=== PATIENT | male | born 1955 | race Caucasian/White ===

== ENCOUNTER → 2018-10-30 | Outpatient (CLI) | payer BC ==
[2016-05-27 10:48] VITALS: BP 134/75
[~2018-10-30] MED LIST: AMLO5TAB10 PO; ASPI-482 PO; ASPI81TA50 PO; ATOR40TA59 PO; BENA40TA3 PO; CELE200C PO; CHLO25TA10 PO; CLOP75TA PO; DICL75TA PO; DOCU-109 PO; ESOM2.5S PO; FENO145T30 PO; FERR-36 PO; FLUV100C2 PO; FLUV100T2 PO; FOLI1TAB16 PO; GABA300C18 PO; GADOBUTROL 10 MMOL/10 ML VIAL IV ONE; HYDR-2765 PO; LOSA-73 PO; MAGN400C PO; METH-38 PO; METO25TA4 PO; MULT-246 PO; OMEG1CAP27 PO; OMEG1CAP30 PO; OMEP20TA8 PO; OXYC1TAB15 PO; OXYC1TAB19 PO; PREG150C PO; SIMV5TAB PO; UBID100C26 PO; WARF-78 PO; [UNRECOGNIZED DRUG - CODE] MC; [UNRECOGNIZED DRUG - CODE] PO
--- NOTE | 2018-10-30 16:42 | KCIC ---
MRI of the lumbar spine without and with contrast 10/30/2018 CLINICAL HISTORY: Low back pain with right leg pain and weakness. Left leg numbness. History of previous lumbar spine surgeries. TECHNIQUE: Unenhanced T1-weighted and T2-weighted sagittal and axial and inversion recovery sagittal images of the lumbar spine were obtained. After the intravenous administration of 10 cc of Gadavist, enhanced T1-weighted sagittal and axial images of the lumbar spine were obtained. FINDINGS: Comparison is made to a CT scan of the lumbar spine dated 02/16/2018. Minimal S-shaped curvature of the thoracolumbar spine is seen. The patient is post posterolateral fusion using pedicle screws and stabilizing rods extending from L1 to S1. Bone graft material is seen within the L3-4 and L4-5 disc spaces. The patient is post laminectomy at L4-5 and L5-S1. Degenerative signal changes and loss of height are seen involving the L1-2, L2-3 and L5-S1 discs. Degenerative signal changes are seen within the marrow surrounding these discs. The conus medullaris is normal in morphology, position, and signal characteristics. At the L1-2 disc space the patient is post right hemilaminectomy. There is a mild to moderate generalized disc bulge. This is eccentric to the right. Degenerative changes are seen involving the facet joints bilaterally. These findings do not result in significant central spinal canal stenosis. No neural foraminal stenosis is seen. At the L2-3 disc space the patient appears to be post bilateral hemilaminotomy. There is a mild generalized disc bulge. Degenerative changes are seen involving the facet joints bilaterally. These findings do not result in significant central spinal canal or neural foraminal stenosis. At the L3-4 level degenerative changes are seen involving the facet joints bilaterally. These findings do not result in definite areas of significant central spinal canal or neural foraminal stenosis. At the L4-5 level degenerative changes are seen involving the facet joints bilaterally. These findings do not result in significant central spinal canal or neural foraminal stenosis. At the L5-S1 disc space there is a moderate generalized disc bulge. Degenerative changes are seen involving the facet joints bilaterally. These findings do not result in significant central spinal canal stenosis. Moderate bilateral neural foraminal stenosis is seen. IMPRESSION: 1. Postsurgical changes are seen throughout the lumbar spine as discussed above. 2. The changes of degenerative disc disease are seen throughout the lumbar spine. These findings do not result in significant central spinal canal stenosis at any level. Moderate bilateral neural foraminal stenosis is seen at L5-S1. Electronically signed by: John Guerra MD (10/30/2018 4:40 PM) [email or web address]
== END | disposition home or self-care (01) ==
LOC: KCIC MRI 15:05
PROVIDERS: ATTEND Family Medicine
DX: M51.17 Intervertebral disc disorders with radiculopathy, lumbosacral region (principal); M48.07 Spinal stenosis, lumbosacral region; M47.27 Other spondylosis with radiculopathy, lumbosacral region; Z98.890 Other specified postprocedural states
CPT/HCPCS: 72158; 82565; A9585

== ENCOUNTER → 2018-11-09 | Outpatient (CLI) | payer BC ==
[2016-05-27 10:48] VITALS: BP 134/75
[~2018-11-09] MED LIST changes: -GADOBUTROL 10 MMOL/10 ML VIAL IV ONE
--- NOTE | 2018-11-09 21:45 | PAIN ---
DATE OF SERVICE: 11/09/2018 INITIAL CONSULTATION FOR PAIN CLINIC CHIEF COMPLAINT: Low back and bilateral lower extremity pain, right greater than left. HISTORY OF PRESENT ILLNESS: This is a 63-year-old male who presents with history of pain in the low back and bilateral lower extremities for many years, worse since September of this year. The patient reports he stopped his physical therapy at that time and then the pain got worse. The patient reports it is now constant across the low back into the posterior gluteus on the right, posterior gluteus on the left, posterior thigh on the right, posterior calf, lateral calf and into the ankle on the right side, also some in the left side in the same distribution, but less intense. The patient reports it is constant, throbbing, tingling, radiating and aching down in the low back itself. The patient reports it is worse with walking, standing and changing positions, better with sitting or lying down. It awakens him from sleep many times at night though. The patient reports it affects his bowel or bladder control, but does not cause any incontinence. The patient reports it does affect his ability to walk. He is using a cane mostly in his left hand. The patient has had physical therapy and chiropractic treatment he was doing with exercise prior to 09/2018. The pain became more intense with the exercise and he was encouraged by his neurosurgeon to hold this until he can get some treatment for it. The patient has continued to do physical therapy and stretching exercises at home on his own. He is taking oxycodone, hydrocodone as well as the gabapentin. He feels the gabapentin does not help with the oxycodone and hydrocodone does help traditionally. The patient also uses ice packs, which are helpful to decrease the pain as well. The patient reports no loss of motor function with significant instability, especially with the right leg as he has had bilateral knee replacements and again uses a cane to walk at all times. The patient rates his disability rating from 0-10, 10 being the worst, is a 9 with family and home responsibilities, recreation, social activity and occupation, 10 with sexual behavior, 1 with self-care and 1 with life support activities. The patient did have an MRI scan of the lumbar spine dated 10/30/2018 showing post-surgical changes with degenerative disk disease throughout the lumbar spine, not resulting in any significant central spinal canal stenosis at any level and moderate bilateral neural foraminal stenosis seen at L5-S1 bilaterally. PAST MEDICAL HISTORY: Significant for hypertension, irritable bowel syndrome, valvular heart disease, arthritis, osteoporosis, anticoagulation. PREVIOUS SURGERIES: Include right bicep tendon reattachment, left foot broken ankle, carpal tunnel release bilaterally, cholecystectomy, right shoulder rotator cuff repair, lumbar laminectomy and lumbar fusion in 2007, left shoulder rotator repair, hammertoe fusion, second rotator repair in 2012 of the left, left knee replacement, right knee replacement, lumbar microdiskectomy, laminectomy and fusion in 2015, carotid endarterectomy, amputation of infected hammertoe and tendon release of the hammertoe in 2018. CURRENT MEDICATIONS: Include multivitamins, hydrocodone, metoprolol, Plavix, omega 3 oils, losartan, folic acid, magnesium, daily baby aspirin, amlodipine, gabapentin, diclofenac, fluvoxamine, atorvastatin and chlorthalidone. ALLERGIES: The patient has no known drug allergies. FAMILY HISTORY: Significant for heart disease, lupus and hypercholesterolemia. SOCIAL HISTORY: The patient drinks about 6 alcoholic drinks a day. Does not smoke. Does not use any illegal, illicit or recreational drugs. He is and lives with his spouse, has no children living at home. Reports he is currently retired, lives locally in [place], [place]. REVIEW OF SYSTEMS: The patient's review of systems is positive for those items mentioned in history of present illness. All systems reviewed are otherwise negative. It is complete, full and well documented on the patient's chart. PHYSICAL EXAMINATION: VITAL SIGNS: The patient's blood pressure is 151/74, pulse is 70, respirations 18, temperature 97.9 degrees Fahrenheit, height is 5 feet 10 inches, weight is 231 pounds. GENERAL: The patient is awake, alert, oriented, appropriate, very pleasant demeanor. HEENT: Head shows normocephalic, atraumatic. Extraocular movements are intact and symmetrical. Oral cavity: Mucous membranes are moist and pink. Dentition is intact. NECK: Shows anterior throat supple without palpable lymphadenopathy noted. Swallow reflex is symmetrical. CHEST: Shows normal on inspection. Breath sounds are clear to auscultation bilaterally. HEART: Shows S1, S2 clear. No murmurs auscultated. ABDOMEN: Soft, nontender, nondistended. No palpable organomegaly is noted. No rebound or guarding demonstrated. BACK: Shows spine grossly in the midline. Normal appearing thoracic kyphosis and some flattening of lumbar lordotic curvature with well-healed surgical scar noted. Lumbar paraspinous muscle shows symmetrical on inspection. On palpation, has some moderate tenderness diffusely bilaterally, but only diffusely without specific radiation, but throughout the upper, middle and lower distribution of the paraspinous muscles bilaterally. No specific tenderness over the midline and spinous processes or the sacrum or sacroiliac regions. The patient has good rotational motion of lumbar spine with some limited extension, but secondary to previous surgeries, not to pain. Forward flexion is limited to less than 45 degrees without pain as well. EXTREMITIES: The patient's lower extremities show deep tendon reflexes 1+ in the patellar and tendo-calcaneus tendons. Knees show well-healed significant surgical scars over both the anterior knees. Tendo calcaneus tendons are 1+ bilaterally as well. Motor exam is approximately 4 on a scale of 5, but equal and symmetrical. Peripheral pulses are 1+ posterior tibia. No peripheral edema is noted. Straight leg raise noted to be negative for reproduction of radicular symptoms bilaterally. Gaenslen's and Meng's maneuvers are grossly negative bilaterally as well. The patient is able to stand and has difficulty getting out of a seated to a standing position, uses the arms of the chair to support himself. He is using a cane in his left hand, has a significant limping gait favoring the right lower extremity with ambulation. SKIN: Shows warm and dry. Good turgor. No edema. No sores, rashes or bruising throughout. IMPRESSION: 1. This is a 63-year-old male with a long history of low back pain, multiple surgeries with fusion and instrumentation, now with persistent radiculopathy, right greater than left in the L5-S1 dermatomal distribution. 2. MRI scan of lumbar spine as noted. 3. Recent neurosurgical evaluation. 4. Arthritis. 5. Hypertension. 6. Anticoagulation. 7. Valvular heart disease. PLAN: Options were discussed with the patient including conservative medical management, physical therapies and interventional techniques. He would like to pursue interventional techniques, as he has been doing physical therapy and medication management. We have discussed the bilateral L5-S1 transforaminal injections as recommended by his neurosurgeon. The patient would like to proceed with this. We will first check with his primary care physician who he reports prescribes his Plavix for him and see if this is deemed safe and appropriate to hold the Plavix for 7 days prior to procedure. If this is clear, we will have him hold this and then return for injection at that time. LIONEL TORREZ MD DR: VICENTE/kayode JOB#: [id number] / [id number] SHARAD Sorto MD
== END | disposition home or self-care (01) ==
LOC: PNCL 13:23
PROVIDERS: ATTEND Anesthesiology
DX: M54.17 Radiculopathy, lumbosacral region (principal); M79.605 Pain in left leg; M79.604 Pain in right leg; K58.9 Irritable bowel syndrome, unspecified; M19.90 Unspecified osteoarthritis, unspecified site; M81.0 Age-related osteoporosis without current pathological fracture; I11.9 Hypertensive heart disease without heart failure; D68.8 Other specified coagulation defects; Z98.1 Arthrodesis status; Z79.899 Other long term (current) drug therapy; Z79.82 Long term (current) use of aspirin; Z90.49 Acquired absence of other specified parts of digestive tract; Z98.890 Other specified postprocedural states
CPT/HCPCS: G0463

== ENCOUNTER → 2018-11-24 | Outpatient (CLI) | payer BC ==
[2016-05-27 10:48] VITALS: BP 134/75
[~2018-11-24] MED LIST changes: +BUPIVACAINE MPF 0.25% 10 ML VIAL. ONE; +IOHEXOL 180 MG/ML 10 ML VIAL. ONE; +methylPREDNISolone ACETATE 40 MG/ML VIAL. ONE; +methylPREDNISolone ACETATE 80 MG/ML VIAL. ONE
--- NOTE | 2018-11-25 00:33 | PAIN ---
DATE OF SERVICE: 11/24/2018 PROGRESS NOTE FOR PAIN CLINIC DIAGNOSES: Lumbar radiculopathy with lumbar degenerative disk disease and lumbar post-laminectomy syndrome. HISTORY OF PRESENT ILLNESS: The patient is a 63-year-old male who returns for followup status post initial evaluation and holding his Plavix after clearance from his primary care physician. He has also been on Lovenox and has held that for the last 24 hours. The patient reports still significant pain in the low back, bilateral lower extremities mostly in the posterior gluteus, posterior thighs, posterior calves as previously. Reports aching, sharp, dull, shooting, tingling, radiating, becoming more constant. The patient reports it is 7 on a scale 10 on average on the last week, 8 on its worse and is 3 on a scale of 10 at the minimal in the last week and is a 7 today. The patient reports no new motor or sensory deficits. No new bowel or bladder control or other complaints. PHYSICAL EXAMINATION: VITAL SIGNS: The patient's blood pressure is 146/92, pulse 69, respirations 18 and temperature 98.1 degrees Fahrenheit. Height is 5 feet 9 inches and weight is 231 pounds. GENERAL: The patient is awake, alert, oriented, appropriate and very pleasant demeanor. HEENT: Head shows normocephalic and atraumatic. Extraocular movements are intact and symmetrical. Oral cavity, mucous membranes are moist and pink. Dentition is intact. NECK: Shows anterior throat supple without palpable lymphadenopathy noted. Swallow reflexes symmetrical. CHEST: Shows normal on inspection. Breath sounds are clear to auscultation bilaterally. HEART: Shows S1 and S2 clear. No murmurs auscultated. ABDOMEN: Obese, soft, nontender and nondistended. No palpable organomegaly is noted. No rebound or guarding demonstrated. BACK: Shows spine grossly in was the midline flattening of the lumbar lordotic curvature is again appreciated with multiple surgical scars. Lumbar paraspinals muscle shows symmetrical on inspection with palpation shows some moderate tenderness throughout the upper, middle and lower distribution of the paraspinous muscles diffusely without radiation. The patient shows good rotational motion both laterally as well as extension and flexion with limited rotation but without pain on rotation, extension or flexion. EXTREMITIES: The patient's lower extremities show deep tendon reflexes at 1+ in the patella and tendo-calcaneus tendons. Motor exam is approximately 4 on a scale 5 but equal and symmetrical with dorsiflexion, extension, quadriceps and hamstring flexion bilaterally. Peripheral pulses are 1+ posterior tibia. No peripheral edema is noted bilaterally. Options were discussed with the patient. The patient's old chart was reviewed as well as his current medication regimen updated. Current review of systems updated today as well. We will proceed with a bilateral L5-S1 transforaminal injections using C-arm fluoroscopic guidance. Risks were discussed including but not limited to bleeding, infection, possibility of epidural hematoma, subsequently neurological compromise, dural puncture headaches, spinal cord and/or nerve damage, side effects of steroid medication and potential injection of the vertebral artery at each level and pertinent ischemic damage as well as poor results regarding pain control and exposure to fluoroscopy. The patient understands and wished to proceed. The patient will return to the clinic in approximately 2 weeks for followup, was counseled as to return appointment, activity level and side effects to be aware of. The patient will restart his Plavix tomorrow as directed through his PCP. DIAGNOSES: Lumbar radiculopathy with lumbar degenerative disk disease, post-lumbar laminectomy syndrome. PROCEDURE: Bilateral L5-S1 transforaminal injections using C-arm fluoroscopic guidance under sterile prep and drape using local anesthetic. MEDICATION INJECTED: A total of 120 mg Depo-Medrol, 60 mg per side, total of 3 mL of contrast, 1.5 mL per side with negative uptake on digital subtraction bilaterally, good spread medially into the epidural space and laterally along the nerve roots on each side. CONDITION AT DISCHARGE: Stable. The patient tolerated the procedure well and had no complications. LIONEL TORREZ MD DR: VICENTE/kayode JOB#: [id number] / [id number]
== END | disposition home or self-care (01) ==
LOC: PNCL 09:46
PROVIDERS: ATTEND Anesthesiology
DX: M51.16 Intervertebral disc disorders with radiculopathy, lumbar region (principal); M96.1 Postlaminectomy syndrome, not elsewhere classified
CPT/HCPCS: 64483; J1030; J1040; J3490; Q9965

== ENCOUNTER → 2019-02-05 | Outpatient (CLI) | payer BC ==
[2016-05-27 10:48] VITALS: BP 134/75
[~2019-02-05] MED LIST changes: +ACET500T68 PO; +CLOP75TA57 PO; +FOLI0.8T3 PO; +LACT1CAP19 PO; +LOSA100T2 PO; +MAGN400T3 PO; +MUPI22OI2 TP; +OMEG1CAP38 PO; +OXYC30TA21 PO; +PANT40TA77 PO; +PIPE3.3734 IV; +SIMV40TA PO; +VANC1.5P12 IV
--- NOTE | 2019-02-05 11:31 | PAIN ---
DATE OF SERVICE: 02/05/2019 PROGRESS NOTE FOR PAIN CLINIC DIAGNOSES: Lumbar radiculopathy with lumbar degenerative disk disease and post-lumbar laminectomy syndrome. HISTORY OF PRESENT ILLNESS: The patient is a 63-year-old male who returns for followup status post bilateral transforaminal injections, last seen on 11/24/2018. The patient did very well to about 75% improvement for the first month. The pains are returning now over the past week or two in the low back, bilateral lower extremities, worse on the right, radiating to posterior gluteus, posterior thighs bilaterally in the posterior calf on the right side, worse with walking, standing, change in positions. The patient reports it is aching, sharp, dull, tight, shooting, tingling in the legs as well as some constant pain in the back with being on his feet. The patient reports it is better with lying down, wakes him from sleep about every 3-4 hours. Initially, there was decreased distance walking and doing work activities, household activities and sleeping much better. The patient reports no new motor or sensory deficits, rates his pain 8 on a scale of 10 at its worst in the past week, 7 on average, 2 at its least and is a 2 today. The patient reports no new motor or sensory deficits, no new bowel or bladder incontinence or other complaints. PHYSICAL EXAMINATION: VITAL SIGNS: The patient's blood pressure is 130/83, pulse 70, respirations 16, temperature 98.2 degrees Fahrenheit, height is 5 feet 10 inches, weight is 224 pounds. GENERAL: The patient is awake, alert, oriented, appropriate, very pleasant demeanor. HEENT: Shows normocephalic, atraumatic. Extraocular movements intact and symmetrical. Oral cavity, mucous membranes are moist and pink. Dentition is intact. NECK: Shows anterior throat supple without palpable lymphadenopathy noted. Swallow reflex symmetrical. CHEST: Shows normal with inspection. Breath sounds clear to auscultation bilaterally. HEART: Shows S1, S2 clear. No murmurs auscultated. ABDOMEN: Soft, nontender, nondistended. No palpable organomegaly is noted. No rebound or guarding demonstrated. BACK: Shows spine grossly in the midline. Normal-appearing thoracic kyphosis and flattening of lumbar lordotic curvature with well-healed extensive surgical scarring throughout the lumbar distribution. Lumbar paraspinous muscle shows symmetrical on inspection and palpation shows some moderate tenderness diffusely bilaterally, but only diffusely without radiation. The patient has good rotational motion of lumbar spine, both laterally as well as extension and flexion without increase in pain. EXTREMITIES: Lower extremities show deep tendon reflexes 1+ in the patellar and tendo calcaneus tendons. Motor exam is approximately 4 on a scale of 5, but equal and symmetrical bilaterally without radiation of pain with movement. Peripheral pulses are 1+ posterior tibia. No peripheral edema is noted. Options were discussed with the patient. The patient's old chart was reviewed as his current medication regimen updated. Current review of systems updated today as well. We will proceed with a second in series of bilateral transforaminal L5-S1 level injections. Risks were again discussed including, but not limited to bleeding, infection, possibility of epidural hematoma, subsequent neurologic compromise, dural puncture, headaches, spinal cord and/or nerve damage, potential injection of the vertebral artery at that level and permanent ischemic damage as well as exposure to fluoroscopy and poor results regarding pain control. The patient understands and wished to proceed. The patient will return to clinic in approximately 2 weeks for followup, was counseled on return appointment, activity level and side effects to be aware of. The patient will restart his Plavix again tomorrow, has been off this for 7 days prior to injection and off his Lovenox for 24 hours as well. Again, restart the Plavix tomorrow. The patient was counseled as to return appointment, activity level as well as side effects to be aware of. DIAGNOSES: Lumbar radiculopathy with lumbar degenerative disk disease, post-lumbar laminectomy syndrome. PROCEDURE: Bilateral L5-S1 transforaminal injections using C-arm fluoroscopic guidance under sterile prep and drape using local anesthetic. MEDICATION INJECTED: A total of 4 mL of 0.25% bupivacaine 2 mL per side, total of 120 mg Depo-Medrol, 60 mg per side and total of 3 mL of contrast 1.5 mL each side with negative aspiration and no uptake on digital subtraction bilaterally with good spread in the epidural space as well as laterally along the nerve roots both right and left of the L5-S1 level. CONDITION AT DISCHARGE: Stable. The patient tolerated procedure well, had no complications. LIONEL TORREZ MD DR: VICENTE/kayode JOB#: [id number] / [id number]
== END ==
LOC: PNCL 08:57
PROVIDERS: ATTEND Anesthesiology
DX: M51.16 Intervertebral disc disorders with radiculopathy, lumbar region (principal); M96.1 Postlaminectomy syndrome, not elsewhere classified
CPT/HCPCS: 64483; J1030; J1040; J3490; Q9965

== ENCOUNTER 2019-02-09 12:05 | Inpatient (IN) | payer BC ==
[~2019-02-09] VITALS: Ht 177.8 cm; Wt 99.8 kg
[~2019-02-09 12:05] MED LIST changes: -ACET500T68 PO; -BUPIVACAINE MPF 0.25% 10 ML VIAL. ONE; -CLOP75TA57 PO; -FOLI0.8T3 PO; -IOHEXOL 180 MG/ML 10 ML VIAL. ONE; -LACT1CAP19 PO; -LOSA100T2 PO; -MAGN400T3 PO; -MUPI22OI2 TP; -OMEG1CAP38 PO; -OXYC30TA21 PO; -PANT40TA77 PO; -PIPE3.3734 IV; -SIMV40TA PO; -VANC1.5P12 IV; -methylPREDNISolone ACETATE 40 MG/ML VIAL. ONE; -methylPREDNISolone ACETATE 80 MG/ML VIAL. ONE
[2019-02-09 15:00] VITALS: BP 137/68
[2019-02-09] MEDS ORDERED: POTASSIUM CHLORIDE 20 MEQ TABLET.ER. PO ONE (16:30)
[2019-02-09] MEDS ORDERED: METO25TA4 PO (17:27)
[2019-02-09] MEDS ORDERED: LACT1CAP19 PO (17:27)
[2019-02-09] MEDS ORDERED: OXYC30TA21 PO (17:27)
[2019-02-09] MEDS ORDERED: OMEG1CAP38 PO (17:27)
[2019-02-09] MEDS ORDERED: MUPI22OI2 TP (17:27)
[2019-02-09] MEDS ORDERED: PIPE3.3734 IV (17:27)
[2019-02-09] MEDS ORDERED: FLUV100T2 PO (17:27)
[2019-02-09] MEDS ORDERED: MAGN400T3 PO (17:27)
[2019-02-09] MEDS ORDERED: FOLI0.8T3 PO (17:27)
[2019-02-09] MEDS ORDERED: PANT40TA77 PO (17:27)
[2019-02-09] MEDS ORDERED: ACET500T68 PO (17:27)
[2019-02-09] MEDS ORDERED: SIMV40TA PO (17:27)
[2019-02-09] MEDS ORDERED: GABA300C18 PO (17:27)
[2019-02-09] MEDS ORDERED: VANC1.5P12 IV (17:27)
[2019-02-09] MEDS ORDERED: CLOP75TA57 PO (17:27)
[2019-02-09] MEDS ORDERED: LOSA100T2 PO (17:27)
[2019-02-09] MEDS ORDERED: ACETAMINOPHEN 500 MG TABLET PO PRN (18:15)
[2019-02-09] MEDS: oxyCODONE IR 5 MG TABLET PO PRN (18:19)
[2019-02-09 19:00] VITALS: BP 142/76
[2019-02-09] MEDS: PIPERACILLIN/TAZOBACTAM 3.375 GM in IV NORMAL SALINE 50ML 50 ML IV SCH (19:00)
[2019-02-09] MEDS ORDERED: GABAPENTIN 300 MG CAPSULE. PO PRN (19:45)
--- NOTE | 2019-02-09 20:06 | HP ---
ADMIT DATE: 02/09/2019 CHIEF COMPLAINT: Toe infection. HISTORY OF PRESENT ILLNESS: The patient is a pleasant middle-aged male who has a right first toe infection. He states he is not diabetic, but clinically looks like a diabetic lesion. There is some concern he could have a foreign body that he actually was at [facility]. They called me as a transfer here. He is now being examined on the medical floor and started some IV Zosyn and IV vancomycin. We are consulting Infectious Disease and Orthopedics. PAST MEDICAL HISTORY: Polypharmacy, cervical fusion, GERD, neuropathy, chronic pain, hypertension, hyperlipidemia, TIA. ALLERGIES: None. FAMILY HISTORY: Hypertension. SOCIAL HISTORY: Does not drink, smoke or take drugs. He is retired, but helps take care of his [id number]. MEDICATIONS: Reviewed, please refer to the MRAD. He is on 32. REVIEW OF SYSTEMS: GENERAL: No history of weight change, weakness or fevers. SKIN: No bruising, hair changes or rashes. EYES: No blurred, double or loss of vision. NOSE AND THROAT: No history of nosebleeds, hoarseness or sore throat. HEART: No history of palpitations, chest pain or shortness of breath on exertion. LUNGS: Denies cough, hemoptysis, wheezing or shortness of breath. GASTROINTESTINAL: Denies changes in appetite, nausea, vomiting, diarrhea or constipation. GENITOURINARY: No history of frequency, urgency, hesitancy or nocturia. NEUROLOGIC: Denies history of numbness, tingling, tremor or weakness. PSYCHIATRIC: No history of panic, anxiety or depression. ENDOCRINE: No history of heat or cold intolerance, polyuria or polydipsia. EXTREMITIES: He complains of toe swelling and pain. PHYSICAL EXAMINATION: VITALS: Within normal limits and are stable. GENERAL: No apparent distress. Alert and oriented. HEENT: Head is normocephalic, atraumatic, pupils were equally round and reactive to light and accommodation. NECK: Supple, no JVD, no thyromegaly was noted. LUNGS: Clear to auscultation in all lung wild without rhonchi or wheezing. HEART: RRR, S1, S2 present. Peripheral pulses intact, no obvious murmurs were noted. ABDOMEN: Soft, nontender. Positive bowel sounds no organomegaly, normal bowel sounds. EXTREMITIES: Without any cyanosis, clubbing, or edema. Pedal pulses intact, Homans sign is negative. NEUROLOGIC: Normal speech, normal tone. A & O x3, moves all extremities, no obvious focal deficits. PSYCHIATRIC: Normal affect, normal mood. Stable. SKIN: No ulcerations or rashes, good skin turgor, no jaundice. VASCULAR: Good capillary refill, neurovascular bundle appears to be intact. EXTRMITIES: The right first toe is quite swollen and erythematous. We just did take pictures. Please refer to the pictures. LABORATORY DATA: Pending. ASSESSMENT AND PLAN: Severe right first toe infection of undetermined etiology, suspect he might have a foreign body. We are going to consult Orthopedics. IV antibiotics. I have started IV Zosyn, IV vancomycin, home meds, PT, OT, aggressive wound care, frequent labs. Deep vein thrombosis prophylaxis PROGNOSIS: Guarded. JEVON GUAJARDO DO DR: BRENNAN/kayode JOB#: [id number] / [id number]
[2019-02-09] MEDS ORDERED: LOSARTAN POTASSIUM 50 MG PO SCH (21:00)
[2019-02-09] MEDS ORDERED: SIMVASTATIN PO SCH (21:00)
[2019-02-09] MEDS ORDERED: DEXTROSE IV SCH (21:00)
[2019-02-09] MEDS ORDERED: METOPROLOL TART IMMED RELEASE 25 MG TABLET. PO SCH (21:00)
[2019-02-09] MEDS ORDERED: VANCOMYCIN HCL IV SCH (21:00)
[2019-02-09] MEDS ORDERED: FLUVOXAMINE MALEATE PO SCH (21:00)
[2019-02-09] MEDS: ATORVASTATIN CALCIUM 40 MG TABLET. PO SCH (21:33)
[2019-02-09] MEDS: LOSARTAN POTASSIUM 50 MG TABLET. PO SCH (21:33)
[2019-02-09] MEDS: METOPROLOL TART IMMED RELEASE 25 MG TABLET. PO SCH (21:33)
[2019-02-09] MEDS: LACTOBACILLUS RHAMNOSUS GG 1 CAPSULE. PO SCH (21:33)
[2019-02-09] MEDS: GABAPENTIN 300 MG CAPSULE. PO SCH (21:34)
[2019-02-09] MEDS: MUPIROCIN 2 % NASAL OINTMENT 22GM TUBE. TP SCH (21:35)
[2019-02-09] MEDS: VANCOMYCIN PER PHARMACY MC PRN (21:39)
--- NOTE | 2019-02-09 21:41 | NUR ---
Pharmacy Vancomycin Dosing Note S:Consulted to monitor and dose vancomycin started 02/06/19. O:FERNANDO DAWKINS is a 63 year old M with Cellulitis . Height: 5 feet, 10 inches Weight: kg Inez Body Weight: 73.00 Adjusted Body Weight: 85.88 Dosing Weight: Actual Other Antibiotics: Zosyn 3.375gm IVPB q6hrs LABS: Last BUN: 14 Last Creatinine: 1.0 Creatinine Clearance: 1.0 mL/min Last WBC: 10.0 Last Procalcitonin: Tmax (past 24 hours): 100.9 Microbiology: NGTD I/O: 3290/801 Drug Levels: Last Trough level: 11.9 on 02/07/19 at 1153 Last dose given at Vancomycin Dosing: Loading Dose: 2000 mg x1 Dosing Weight: Actual Target Trough: 10-20 A: Based on Dose received at [place]: P: 1. Continue Vancomycin 1500 mg IV q12h. 2. Follow up level as needed. 3. Pharmacy will continue to monitor, follow and adjust therapy as needed. Berny Edward [facility], 02/09/19 1424
[2019-02-09 23:00] VITALS: BP 127/61
[2019-02-10] MEDS: PIPERACILLIN/TAZOBACTAM 3.375 GM in IV NORMAL SALINE 50ML 50 ML IV SCH ×5 (00:01→23:04)
[2019-02-10] MEDS: VANCOMYCIN 1.5 GM in IV NORMAL SALINE 500ML BAG 500 ML IV SCH ×3 (00:50→23:04)
[2019-02-10] MEDS: oxyCODONE IR 5 MG TABLET PO PRN ×3 (00:57→23:05)
[2019-02-10 03:00] VITALS: BP 109/71
[2019-02-10 07:42] VITALS: BP 126/51
[2019-02-10] MEDS ORDERED: CLOPIDOGREL BISULFATE 75 MG TABLET PO SCH ×2 (08:00→09:00)
[2019-02-10] MEDS ORDERED: ASPIRIN ENTERIC COATED 81 MG TABLET.DR. PO SCH (09:00)
[2019-02-10] MEDS ORDERED: FISH OIL PO SCH (09:00)
[2019-02-10] MEDS ORDERED: DHA PO SCH (09:00)
[2019-02-10] MEDS ORDERED: MAGNESIUM OXIDE PO SCH (09:00)
[2019-02-10] MEDS ORDERED: EPA PO SCH (09:00)
[2019-02-10] MEDS ORDERED: OMEGA PO SCH (09:00)
[2019-02-10] MEDS ORDERED: NON FORMULARY ITEM (Ubidecarenone (Coq-10) 100 MG) PO SCH (09:00)
[2019-02-10] MEDS: MULTIVITAMIN with MINERAL TABLET. PO SCH (09:04)
[2019-02-10] MEDS: DICLOFENAC SODIUM 25 MG TABLET.DR PO SCH (09:04)
[2019-02-10] MEDS: LACTOBACILLUS RHAMNOSUS GG 1 CAPSULE. PO SCH ×2 (09:04→20:45)
[2019-02-10] MEDS: MAGNESIUM OXIDE 400 MG TABLET PO SCH (09:04)
[2019-02-10] MEDS: FOLIC ACID 1 MG TABLET. PO SCH (09:06)
[2019-02-10] MEDS: OMEGA-3 FATTY ACIDS/FISH OIL 1,000 MG CAPSULE. PO SCH (09:06)
[2019-02-10] MEDS: METOPROLOL TART IMMED RELEASE 25 MG TABLET. PO SCH ×2 (09:06→20:49)
[2019-02-10] MEDS: CHLORTHALIDONE 25 MG TABLET. PO SCH (09:06)
[2019-02-10] MEDS: GABAPENTIN 300 MG CAPSULE. PO SCH ×2 (09:06→20:40)
[2019-02-10] MEDS: FOLIC/VIT B COMP W-C (RENAL) TABLET. PO SCH (09:07)
[2019-02-10] MEDS: LOSARTAN POTASSIUM 50 MG TABLET. PO SCH ×2 (09:07→20:39)
[2019-02-10] MEDS: amLODIPine BESYLATE 5 MG TABLET PO SCH (09:07)
[2019-02-10] MEDS: MUPIROCIN 2 % NASAL OINTMENT 22GM TUBE. TP SCH ×2 (09:14→20:49)
--- NOTE | 2019-02-10 10:10 | PDOC2 ---
CONSULT Date of Consult Date of Consult DATE: 02/10/19 TIME: 10:06 Reason for Consult Reason for Consult: Right great toe infection Referring Physician Referring Physician: Ruth Identification/Chief Complaint Chief Complaint Right toe pain History of Present Illness Reason for Visit: Patient is a 63-year-old gentleman who tells me he first injured his toe back in November when he noticed a blister develop over the dorsum of his right great toe. Since then he's had intermittent injuries and wounds most recently noted his toe became swollen and red on past Tuesday. He was seen by his primary care provider who ordered a PICC line and antibiotics apparently. He failed to improve and so he was admitted [facility] has been on IV antibiotics. He was transferred down here for anticipated surgery. He tells me has right toe hurts. He denies a personal history of diabetes. He tells me he has normal feeling in his feet and toes. Past Medical History Cardiovascular: HTN, Hyperlipidemia Pulmonary: Other CENTRAL NERVOUS SYSTEM: CVA Psych: Anxiety, Addictions, Depression, Other Musculoskeletal: low back pain, Osteoarthritis Rheumatologic: Fibromyalgia Infectious disease: Other Renal/: Chronic renal failure, Other Past Surgical History Past Surgical History: Cholecystectomy, Total knee replacement, Other Family History Family History: Hypertension Social History ALCOHOL: heavy Drugs: None Lives: with Family Domestic Violence: Neg Current Medications Current Medications Current Medications Potassium Chloride (Klor-Con) 20 meq 1X ONCE PO ; Start 02/09/19 at 16:30; Stop 02/09/19 at 16:30; Status DC Atorvastatin Calcium (Lipitor) 40 mg QHS PO Last administered on 02/09/19at 21:33; Start 02/09/19 at 21:00 Vitamin B Complex/ Vitamin C (Yvonne-Sy) 1 tab DAILY PO Last administered on 02/10/19at 09:07; Start 02/10/19 at 09:00 Gabapentin (Neurontin) 300 mg BID PO Last administered on 02/10/19at 09:06; Start 02/09/19 at 21:00 Lactobacillus Rhamnosus (Culturelle) 1 cap BID PO Last administered on 02/10/19at 09:04; Start 02/09/19 at 21:00 Losartan Potassium (Cozaar) 50 mg BID PO Last administered on 02/10/19at 09:07; Start 02/09/19 at 21:00 Metoprolol Tartrate (Lopressor) 25 mg BID PO Last administered on 02/10/19 09:0 6; Start 02/09/19 at 21:00 Mupirocin (Bactroban) 1 celia BID TP Last administered on 02/10/19 09:14; Start 02/09/19 at 21:00 Oxycodone HCl (Roxicodone) 20 mg PRN TID PRN PO SEVERE PAIN Last administered on 02/10/19 09:11; Start 02/09/19 at 18:15 Pantoprazole Sodium (Protonix) 40 mg QODAY@0730 PO ; Start 02/11/19 at 07:30 Acetaminophen (Tylenol) 500 mg PRN Q6HRS PRN PO Fever > 101.5; Start 02/09/19 at 18:15 Fluvoxamine Maleate (Luvox) 100 mg QHS PO Last administered on 02/09/19at 21:34; Start 02/09/19 at 21:00 Magnesium Oxide (Magnesium Oxide) 400 mg DAILY PO Last administered on 02/10/19at 09:04; Start 02/10/19 at 09:00 Multivitamins (Thera M Plus) 1 tab DAILY PO Last administered on 02/10/19 09:04; Start 02/10/19 at 09:00 Fish Oil (Fish Oil) 4,000 mg DAILY PO Last administered on 02/10/19 09:06; Start 02/10/19 at 09:00 Non-Formulary Medication (Piperacillin Sodium/Tazobactam (Piperacil-Tazobact 3.375 Gm Vl)) 3.375 gm Q6HRS IV ; Start 02/10/19 at 00:00; Status UNV Non-Formulary Medication (Vancomycin HCl/ D5w (Vancomycin 1.5 Gram/250 ml-D5w)) 1.5 gm Q12HR IV ; Start 02/09/19 at 21:00; Status UNV Vancomycin HCl 1.5 gm/Sodium Chloride 500 ml @ 250 mls/hr Q12H IV Last administered on 02/10/19at 00:50; Start 02/10/19 at 00:00 Piperacillin Sod/ Tazobactam Sod 3.375 gm/Sodium Chloride 50 ml @ 100 mls/hr Q6HRS IV Last administered on 02/10/19at 06:06; Start 02/09/19 at 18:30 Amlodipine Besylate (Norvasc) 5 mg DAILY PO Last administered on 02/10/19at 09:07; Start 02/10/19 at 09:00 Aspirin (Ecotrin) 81 mg DAILY PO Last administered on 02/10/19at 09:03; Start 02/10/19 at 09:00 Chlorthalidone (Thalitone) 25 mg DAILY PO Last administered on 02/10/19at 09:06; Start 02/10/19 at 09:00 Clopidogrel Bisulfate (Plavix) 75 mg DAILYWBKFT PO ; Start 02/10/19 at 08:00 Clopidogrel Bisulfate (Plavix) 75 mg DAILY PO ; Start 02/10/19 at 09:00; Status UNV Folic Acid (Folic Acid) 1 mg DAILY PO Last administered on 02/10/19at 09:06; Start 02/10/19 at 09:00 Gabapentin (Neurontin) 300 mg TID PRN PO tid; Start 02/09/19 at 19:45; Status UNV Acetaminophen/ Hydrocodone Bitart (Lortab 7.5/325) 1 tab PRN QID PRN PO MODERATE PAIN; Start 02/09/19 at 19:45 Metoprolol Tartrate (Lopressor) 25 mg BID PO ; Start 02/09/19 at 21:00; Status UNV Diclofenac Sodium (Voltaren) 75 mg DAILY PO Last administered on 02/10/19at 09:04; Start 02/10/19 at 09:00 Non-Formulary Medication (Fluvoxamine Maleate ) 1 tab QHS PO ; Start 02/09/19 at 21:00; Status UNV Non-Formulary Medication (Losartan Potassium (Cozaar)) 50 mg BID PO ; Start 02/09/19 at 21:00; Status UNV Non-Formulary Medication (Magnesium Oxide (Magnesium)) 1 cap DAILY PO ; Start 02/10/19 at 09:00; Status UNV Non-Formulary Medication ([place]-3/Dha/Epa/ Fish Oil ([place]-3 Fish Oil 1,000 Mg Sfgl)) 4,000 mg DAILY PO ; Start 02/10/19 at 09:00; Status UNV Non-Formulary Medication (Simvastatin (Zocor)) 1 tab QHS PO ; Start 02/09/19 at 21:00; Status UNV Non-Formulary Medication (Ubidecarenone (Coq-10)) 100 mg DAILY PO ; Start 02/10/19 at 09:00; Status UNV Vancomycin HCl (Vanco Per Pharmacy) 1 each PRN DAILY PRN MC SEE COMMENTS Last administered on 02/09/19at 21:39; Start 02/09/19 at 21:30 Active Scripts Active Clopidogrel (Clopidogrel Bisulfate) 75 Mg Tablet 75 Mg PO DAILYWBKFT Reported Roxicodone (Oxycodone Hcl) 30 Mg Tablet 20 Mg PO TID PRN PRN Fluvoxamine Maleate 100 Mg Tablet 1 Tab PO QHS Vancomycin 1.5 Gram/250 ml-D5w (Vancomycin HCl/D5w) 1.5 Gm/250 Ml Plast..bag 1.5 Gm IV Q12HR Zocor (Simvastatin) 40 Mg Tablet 1 Tab PO QHS Piperacil-Tazobact 3.375 Gm Vl (Piperacillin Sodium/Tazobactam) 3.375 Gm Vial 3.375 Gm IV Q6HRS Protonix (Pantoprazole Sodium) 40 Mg Tablet. 40 Mg PO QODAY@0730 [place] 3 Fish Oil Softgel ([place]-3 Fatty Acids/Fish Oil) 1 Each Capsule.dr 1 Each PO DAILY Mupirocin Ointment (Mupirocin) 22 Gm Oint...g. 1 Celia TP BID Metoprolol Tartrate 25 Mg Tablet 1 Tab PO BID Magnesium Oxide 400 Mg Tablet 1 Tab PO DAILY Cozaar (Losartan Potassium) 100 Mg Tablet 50 Mg PO BID Culturelle (Lactobacillus Rhamnosus Gg) 1 Each Cap.sprink 1 Each PO BID Gabapentin (Gabapentin) 300 Mg Capsule 300 Mg PO BID Nephro-Sy Tablet (Folic Acid/Vitamin B Comp W-C) 0.8 Mg Tablet 1 Tab PO DAILY Plavix (Clopidogrel Bisulfate) 75 Mg Tablet 75 Mg PO DAILY Acetaminophen 500 Mg Tablet 500 Mg PO PRN PRN Folic Acid 1 Mg Tablet 1 Tab PO DAILY Magnesium (Magnesium Oxide) 400 Mg Capsule 1 Cap PO DAILY Aspir-Low (Aspirin) 81 Mg Tablet. 1 Tab PO DAILY Amlodipine Besylate 5 Mg Tablet 5 Mg PO DAILY Diclofenac Sodium 75 Mg Tablet. 1 Tab PO DAILY Gabapentin (Gabapentin) 300 Mg Capsule 300 Mg PO TID PRN Chlorthalidone (Chlorthalidone) 25 Mg Tablet 25 Mg PO DAILY Atorvastatin Calcium 40 Mg Tablet 1 Tab PO DAILY Fluvoxamine Maleate 100 Mg Tablet 1 Tab PO QHS Losartan Potassium 50 Mg Tablet 50 Mg PO BID [place]-3 Fish Oil 1,000 Mg Sfgl ([place]-3/Dha/Epa/Fish Oil) 1,000 Mg Capsule 4,000 Mg PO DAILY Hydrocodone-Apap 7.5-325 (Hydrocodone Bit/Acetaminophen) 1 Each Tablet 1 Tab PO QID PRN Multi-Vitamin Daily (Multivitamin) 1 Each Tablet 1 Each PO DAILY Coq-10 (Ubidecarenone) 100 Mg Capsule 100 Mg PO DAILY Metoprolol Tartrate 25 Mg Tablet 25 Mg PO BID last dose this am Allergies Allergies: Coded Allergies: No Known Drug Allergies (Unverified , 01/29/16) ROS General: No: Chills, Night Sweats, Fatigue, Malaise, Appetite, Other PSYCHOLOGICAL ROS: No: Anxiety, Behavioral Disorder, Concentration difficultie, Decreased libido, Depression, Disorientation, Hallucinations, Hostility, Irritablity, Memory difficulties, Mood Swings, Obsessive thoughts, Physical abuse, Sexual abuse, Sleep disturbances, Suicidal ideation, Other Eyes: No Blurry vision, No Decreased vision, No Double vision, No Dry eyes, No Excessive tearing, No Eye Pain, No Itchy Eyes, No Loss of vision, No Photophobia, No Scotomata, No Uses contacts, No Uses glasses, No Other HEENT: No: Heacaches, Visual Changes, Hearing change, Nasal congestion, Nasal discharge, Oral lesions, Sinus pain, Sore Throat, Epistaxis, Sneezing, Snoring, Tinnitus, Vertigo, Vocal changes, Other ALLERGY AND IMMUNOLOGY: No: Hives, Insect Bite Sensitivity, Itchy/Watery Eyes, Nasal Congestion, Post Nasal Drip, Seasonal Allergies, Other Hematological and Lymphatic: No: Bleeding Problems, Blood Clots, Blood Transfusions, Brusing, Night Sweats, Pallor, Swollen Lymph Nodes, Other ENDOCRINE: No: Breast Changes, Galactorrhea, Hair Pattern Changes, Hot Flashes, Malaise/lethargy, Mood Swings, Palpitations, Polydipsia/polyuria, Skin Changes, Temperature Intolerance, Unexpected Weight Changes, Other Respiratory: No: Cough, Hemoptysis, Orthopnea, Pleuritic Pain, Shortness of breath, SOB with excertion, Sputum Changes, Stridor, Tachypnea, Wheezing, Other Cardiovascular: No Chest Pain, No Palpitations, No Orthopnea, No Paroxysmal Noc. Dyspnea, No Edema, No Lt Headedness, No Other Gastrointestinal: No Nausea, No Vomiting, No Abdominal Pain, No Diarrhea, No Constipation, No Melena, No Hematochezia, No Other Genitourinary: No Dysuria, No Frequency, No Incontinence, No Hematuria, No Retention, No Discharge, No Urgency, No Pain, No Flank Pain, No Other, No , No , No , No , No , No , No Musculoskeletal: Yes Joint Pain, Yes Joint Stiffness Neurological: No Behavorial Changes, No Bowel/Bladder ControlChng, No Confusion, No Dizziness, No Gait Disturbance, No Headaches, No Impaired Coord/balance, No Memory Loss, No Numbness/Tingling, No Seizures, No Speech Problems, No Tremors, No Visual Changes, No Weakness, No Other Physical Exam General: Alert, Oriented X3 HEENT: Atraumatic, EOMI Lungs: Other (respirations are unlabored with symmetric chest rise) Heart: Regular rate Abdomen: Soft, No tenderness Extremities: No edema, Normal pulses, Other (no edema in his lower extremities with the exception around his right great toe) Neuro: Normal speech, Strength at 5/5 X4 ext, Sensation intact Psych/Mental Status: Mental status NL, Mood NL MUSCULOSKELETAL: Other (on examination of his right lower extremity, he has cellulitis and edema around his right great toe tracking into the dorsum of his forefoot medially. He has dusky changes in a ring around his first MTP joint. No obvious purulent drainage. He has a plantar callosity over his first MTP joint but no plantar wounds.) Vitals VITALS Vital Signs Date Time Temp Pulse Resp B/P (MAP) Pulse Ox O2 Delivery O2 Flow Rate FiO2 02/10/19 09:11 Room Air 02/10/19 09:07 69 126/51 02/10/19 07:42 99.5 18 94 99.5 Images Images Images were reviewed Assessment/Plan Assessment/Plan Right great toe infection. I did discuss with this gentleman that given his recalcitrant course thus far that we would likely need to proceed with irrigation and debridement and likely wound VAC application. I did discuss rationale as well as risks, benefits, and alternatives with him and answered his questions. We will most likely perform this tomorrow morning. WILMER JIMENEZ II, MD Feb 10, 2019 10:10
[2019-02-10] MEDS: VANCOMYCIN PER PHARMACY MC PRN (10:30)
[2019-02-10 11:15] VITALS: BP 112/58
[2019-02-10] MEDS ORDERED: DEXTROSE 50% 25 GM / 50ML DISP.SYRIN. IV PRN (11:45)
[2019-02-10] MEDS ORDERED: IV DEXTROSE 5% 250 ML BAG. IV PRN (11:45)
--- NOTE | 2019-02-10 12:57 | PDOC ---
PROGRESS NOTES Chief Complaint Chief Complaint Severe right first toe infection - poss foreign body Hx CVA, almost zero residual, some cognitive decline reported by family obese, BMI 31 htn lipids History of Present Illness History of Present Illness hold lovenox, asa, and plavix, he did get 81 mg asa, Ok for surg otherwise he feels well, foot is red his had about 10 pics no her phone of the toe and progression, reviewed case Vitals Vitals Vital Signs Date Time Temp Pulse Resp B/P (MAP) Pulse Ox O2 Delivery O2 Flow Rate FiO2 02/10/19 11:15 99.3 70 18 112/58 (76) 97 Room Air 99.3 Physical Exam General: Alert, Oriented X3, Cooperative, No acute distress Heart: Regular rate, No murmurs Lungs: Clear Abdomen: Normal bowel sounds, Soft, No tenderness Extremities: No edema, Normal pulses, Other (no edema in his lower extremities with the exception around his right great toe) Skin: No rashes Comment Review of Relevant I have reviewed the following items jac (where applicable) has been applied. Medications Current Medications Potassium Chloride (Klor-Con) 20 meq 1X ONCE PO ; Start 02/09/19 at 16:30; Stop 02/09/19 at 16:30; Status DC Atorvastatin Calcium (Lipitor) 40 mg QHS PO Last administered on 02/09/19 21:33; Start 02/09/19 at 21:00 Vitamin B Complex/ Vitamin C (Yvonne-Sy) 1 tab DAILY PO Last administered on 02/10/19 09:07; Start 02/10/19 at 09:00 Gabapentin (Neurontin) 300 mg BID PO Last administered on 02/10/19 09:06; Start 02/09/19 at 21:00 Lactobacillus Rhamnosus (Culturelle) 1 cap BID PO Last administered on 02/10/19 09:04; Start 02/09/19 at 21:00 Losartan Potassium (Cozaar) 50 mg BID PO Last administered on 02/10/19 09:07; Start 02/09/19 at 21:00 Metoprolol Tartrate (Lopressor) 25 mg BID PO Last administered on 02/10/19 09:06; Start 02/09/19 at 21:00 Mupirocin (Bactroban) 1 celia BID TP Last administered on 02/10/19 09:14; Start 02/09/19 at 21:00 Oxycodone HCl (Roxicodone) 20 mg PRN TID PRN PO SEVERE PAIN Last administered on 02/10/19 09:11; Start 02/09/19 at 18:15 Pantoprazole Sodium (Protonix) 40 mg QODAY@0730 PO ; Start 02/11/19 at 07:30 Acetaminophen (Tylenol) 500 mg PRN Q6HRS PRN PO Fever > 101.5; Start 02/09/19 at 18:15 Fluvoxamine Maleate (Luvox) 100 mg QHS PO Last administered on 02/09/19 21:34; Start 02/09/19 at 21:00 Magnesium Oxide (Magnesium Oxide) 400 mg DAILY PO Last administered on 02/10/19 09:04; Start 02/10/19 at 09:00 Multivitamins (Thera M Plus) 1 tab DAILY PO Last administered on 02/10/19 09:04; Start 02/10/19 at 09:00 Fish Oil (Fish Oil) 4,000 mg DAILY PO Last administered on 02/10/19 09:06; Start 02/10/19 at 09:00 Non-Formulary Medication (Piperacillin Sodium/Tazobactam (Piperacil-Tazobact 3.375 Gm Vl)) 3.375 gm Q6HRS IV ; Start 02/10/19 at 00:00; Status UNV Non-Formulary Medication (Vancomycin HCl/ D5w (Vancomycin 1.5 Gram/250 ml-D5w)) 1.5 gm Q12HR IV ; Start 02/09/19 at 21:00; Status UNV Vancomycin HCl 1.5 gm/Sodium Chloride 500 ml @ 250 mls/hr Q12H IV Last admini stered on 02/10/19 00:50; Start 02/10/19 at 00:00 Piperacillin Sod/ Tazobactam Sod 3.375 gm/Sodium Chloride 50 ml @ 100 mls/hr Q 6HRS IV Last administered on 02/10/19 11:54; Start 02/09/19 at 18:30 Amlodipine Besylate (Norvasc) 5 mg DAILY PO Last administered on 02/10/19 09:07; Start 02/10/19 at 09:00 Aspirin (Ecotrin) 81 mg DAILY PO Last administered on 02/10/19at 09:03; Start 02/10/19 at 09:00; Stop 02/10/19 at 11:37; Status DC Chlorthalidone (Thalitone) 25 mg DAILY PO Last administered on 02/10/19at 09:06; Start 02/10/19 at 09:00 Clopidogrel Bisulfate (Plavix) 75 mg DAILYWBKFT PO ; Start 02/10/19 at 08:00; Stop 02/10/19 at 11:37; Status DC Clopidogrel Bisulfate (Plavix) 75 mg DAILY PO ; Start 02/10/19 at 09:00; Status UNV Folic Acid (Folic Acid) 1 mg DAILY PO Last administered on 02/10/19at 09:06; Start 02/10/19 at 09:00 Gabapentin (Neurontin) 300 mg TID PRN PO tid; Start 02/09/19 at 19:45; Status UNV Acetaminophen/ Hydrocodone Bitart (Lortab 7.5/325) 1 tab PRN QID PRN PO MODERATE PAIN; Start 02/09/19 at 19:45 Metoprolol Tartrate (Lopressor) 25 mg BID PO ; Start 02/09/19 at 21:00; Status UNV Diclofenac Sodium (Voltaren) 75 mg DAILY PO Last administered on 02/10/19at 09:04; Start 02/10/19 at 09:00 Non-Formulary Medication (Fluvoxamine Maleate ) 1 tab QHS PO ; Start 02/09/19 at 21:00; Status UNV Non-Formulary Medication (Losartan Potassium (Cozaar)) 50 mg BID PO ; Start 02/09/19 at 21:00; Status UNV Non-Formulary Medication (Magnesium Oxide (Magnesium)) 1 cap DAILY PO ; Start 02/10/19 at 09:00; Status UNV Non-Formulary Medication ([place]-3/Dha/Epa/ Fish Oil ([place]-3 Fish Oil 1,000 Mg Sfgl)) 4,000 mg DAILY PO ; Start 02/10/19 at 09:00; Status UNV Non-Formulary Medication (Simvastatin (Zocor)) 1 tab QHS PO ; Start 02/09/19 at 21:00; Status UNV Non-Formulary Medication (Ubidecarenone (Coq-10)) 100 mg DAILY PO ; Start 02/10/19 at 09:00; Status UNV Vancomycin HCl (Vanco Per Pharmacy) 1 each PRN DAILY PRN MC SEE COMMENTS Last administered on 02/10/19at 10:30; Start 02/09/19 at 21:30 Clopidogrel Bisulfate (Plavix) 75 mg DAILYWBKFT PO ; Start 02/13/19 at 08:00 Aspirin (Ecotrin) 81 mg DAILY PO ; Start 02/13/19 at 09:00 Dextrose (Dextrose 50%-Water Syringe) 12.5 gm PRN Q15MIN PRN IV SEE COMMENTS; Start 02/10/19 at 11:45; Stop 02/10/19 at 11:50; Status DC Dextrose 250 ml PRN Q15MIN PRN IV SEE COMMENTS; Start 02/10/19 at 11:45; Stop 02/10/19 at 11:50; Status DC Active Scripts Active Clopidogrel (Clopidogrel Bisulfate) 75 Mg Tablet 75 Mg PO DAILYWBKFT Reported Roxicodone (Oxycodone Hcl) 30 Mg Tablet 20 Mg PO TID PRN PRN Fluvoxamine Maleate 100 Mg Tablet 1 Tab PO QHS Vancomycin 1.5 Gram/250 ml-D5w (Vancomycin HCl/D5w) 1.5 Gm/250 Ml Plast..bag 1.5 Gm IV Q12HR Zocor (Simvastatin) 40 Mg Tablet 1 Tab PO QHS Piperacil-Tazobact 3.375 Gm Vl (Piperacillin Sodium/Tazobactam) 3.375 Gm Vial 3.375 Gm IV Q6HRS Protonix (Pantoprazole Sodium) 40 Mg Tablet. 40 Mg PO QODAY@0730 [place] 3 Fish Oil Softgel ([place]-3 Fatty Acids/Fish Oil) 1 Each Capsule.dr 1 Each PO DAILY Mupirocin Ointment (Mupirocin) 22 Gm Oint...g. 1 Celia TP BID Metoprolol Tartrate 25 Mg Tablet 1 Tab PO BID Magnesium Oxide 400 Mg Tablet 1 Tab PO DAILY Cozaar (Losartan Potassium) 100 Mg Tablet 50 Mg PO BID Culturelle (Lactobacillus Rhamnosus Gg) 1 Each Cap.sprink 1 Each PO BID Gabapentin (Gabapentin) 300 Mg Capsule 300 Mg PO BID Nephro-Sy Tablet (Folic Acid/Vitamin B Comp W-C) 0.8 Mg Tablet 1 Tab PO DAILY Plavix (Clopidogrel Bisulfate) 75 Mg Tablet 75 Mg PO DAILY Acetaminophen 500 Mg Tablet 500 Mg PO PRN PRN Folic Acid 1 Mg Tablet 1 Tab PO DAILY Magnesium (Magnesium Oxide) 400 Mg Capsule 1 Cap PO DAILY Aspir-Low (Aspirin) 81 Mg Tablet.dr 1 Tab PO DAILY Amlodipine Besylate 5 Mg Tablet 5 Mg PO DAILY Diclofenac Sodium 75 Mg Tablet.dr 1 Tab PO DAILY Gabapentin (Gabapentin) 300 Mg Capsule 300 Mg PO TID PRN Chlorthalidone (Chlorthalidone) 25 Mg Tablet 25 Mg PO DAILY Atorvastatin Calcium 40 Mg Tablet 1 Tab PO DAILY Fluvoxamine Maleate 100 Mg Tablet 1 Tab PO QHS Losartan Potassium 50 Mg Tablet 50 Mg PO BID [place]-3 Fish Oil 1,000 Mg Sfgl ([place]-3/Dha/Epa/Fish Oil) 1,000 Mg Capsule 4,000 Mg PO DAILY Hydrocodone-Apap 7.5-325 (Hydrocodone Bit/Acetaminophen) 1 Each Tablet 1 Tab PO QID PRN Multi-Vitamin Daily (Multivitamin) 1 Each Tablet 1 Each PO DAILY Coq-10 (Ubidecarenone) 100 Mg Capsule 100 Mg PO DAILY Metoprolol Tartrate 25 Mg Tablet 25 Mg PO BID last dose this am Vitals/I & O Vital Sign - Last 24 Hours 02/09/19 02/09/19 02/09/19 02/09/19 15:00 18:19 19:00 21:33 Temp 98.0 98.3 98.0 98.3 Pulse 96 68 68 Resp 18 18 B/P (MAP) 137/68 (91) 142/76 (98) 142/76 Pulse Ox 96 92 O2 Delivery Room Air Room Air Room Air 02/09/19 02/09/19 02/10/19 02/10/19 21:33 23:00 00:57 01:57 Temp 98.9 98.9 Pulse 68 90 Resp 16 20 20 B/P (MAP) 142/76 127/61 (83) Pulse Ox 95 O2 Delivery Room Air Room Air 02/10/19 02/10/19 02/10/19 02/10/19 03:00 07:20 07:42 09:06 Temp 100.1 99.5 100.1 99.5 Pulse 76 69 69 Resp 18 18 B/P (MAP) 109/71 (84) 126/51 (76) 126/51 Pulse Ox 93 94 O2 Delivery Room Air Room Air Room Air 02/10/19 02/10/19 02/10/19 02/10/19 09:07 09:07 09:11 10:15 Pulse 69 69 B/P (MAP) 126/51 126/51 O2 Delivery Room Air Room Air 02/10/19 11:15 Temp 99.3 99.3 Pulse 70 Resp 18 B/P (MAP) 112/58 (76) Pulse Ox 97 O2 Delivery Room Air Intake and Output 02/09/19 02/09/19 02/10/19 15:00 23:00 07:00 Intake Total 750 ml Output Total 2200 ml Balance -1450 ml CATRACHO ZHU MD Feb 10, 2019 12:57
[2019-02-10 15:49] VITALS: BP 159/73
[2019-02-10] MEDS: HYDROcodone/APAP 7.5/325MG 1 TAB TABLET PO PRN (16:03)
[2019-02-10 19:00] VITALS: BP 143/71
[2019-02-10] MEDS: ATORVASTATIN CALCIUM 40 MG TABLET. PO SCH (20:39)
[2019-02-10 23:03] VITALS: BP 133/67
[2019-02-11] VITALS (12 sets, daily range): BP systolic 111–167; BP diastolic 63–105
[2019-02-11] MEDS: PANTOPRAZOLE 40 MG TABLET.DR. PO SCH (05:40)
[2019-02-11] MEDS: PIPERACILLIN/TAZOBACTAM 3.375 GM in IV NORMAL SALINE 50ML 50 ML IV SCH ×4 (05:40→23:19)
[2019-02-11] MEDS ORDERED: ONDANSETRON PF 4 MG/2 ML VIAL. ONE (07:34)
[2019-02-11] MEDS ORDERED: PROPOFOL 20 ML IV ONE (07:34)
[2019-02-11] MEDS ORDERED: DEXAMETHASONE SOD PHOS 4 MG/ML VIAL ONE (07:34)
[2019-02-11] MEDS ORDERED: LIDOCAINE 2% PF 5 ML VIAL. ONE (07:34)
[2019-02-11] MEDS: HYDROcodone/APAP 7.5/325MG 1 TAB TABLET PO PRN (08:09)
[2019-02-11] MEDS: METOPROLOL TART IMMED RELEASE 25 MG TABLET. PO SCH ×2 (08:09→21:00)
[2019-02-11] MEDS: OMEGA-3 FATTY ACIDS/FISH OIL 1,000 MG CAPSULE. PO SCH (08:11)
[2019-02-11] MEDS: LACTOBACILLUS RHAMNOSUS GG 1 CAPSULE. PO SCH ×2 (08:11→21:00)
[2019-02-11] MEDS: LOSARTAN POTASSIUM 50 MG TABLET. PO SCH ×2 (08:11→20:59)
[2019-02-11] MEDS: FOLIC/VIT B COMP W-C (RENAL) TABLET. PO SCH (08:12)
[2019-02-11] MEDS: FOLIC ACID 1 MG TABLET. PO SCH (08:12)
[2019-02-11] MEDS: MAGNESIUM OXIDE 400 MG TABLET PO SCH (08:12)
[2019-02-11] MEDS: GABAPENTIN 300 MG CAPSULE. PO SCH ×2 (08:12→21:00)
[2019-02-11] MEDS: CHLORTHALIDONE 25 MG TABLET. PO SCH (08:12)
[2019-02-11] MEDS: amLODIPine BESYLATE 5 MG TABLET PO SCH (08:12)
[2019-02-11] MEDS: MULTIVITAMIN with MINERAL TABLET. PO SCH (08:13)
[2019-02-11] MEDS: MUPIROCIN 2 % NASAL OINTMENT 22GM TUBE. TP SCH ×2 (08:13→21:10)
[2019-02-11] MEDS: DICLOFENAC SODIUM 25 MG TABLET.DR PO SCH (08:13)
[2019-02-11] MEDS ORDERED: HYDROmorphone 2 MG/ML VIAL IV PRN (10:15)
[2019-02-11] MEDS ORDERED: fentaNYL PF VIAL 100 MCG/2 ML VIAL IV PRN (10:15)
[2019-02-11] MEDS ORDERED: ONDANSETRON PF 4 MG/2 ML VIAL. IV PRN (10:15)
[2019-02-11] MEDS ORDERED: PROCHLORPERAZINE 10 MG/2 ML VIAL. IV PRN (10:15)
[2019-02-11] MEDS ORDERED: LIDOCAINE 1% PF 2 ML VIAL. ID PRN (10:15)
--- NOTE | 2019-02-11 10:15 | NUR ---
Pt. down to OR via bed, at bedside.
[2019-02-11] MEDS ORDERED: IV RINGERS,LACTATED 1000ML 1,000 ML IV SCH (10:30)
[2019-02-11] MEDS ORDERED: fentaNYL PF VIAL 100 MCG/2 ML VIAL ONE ×2 (10:36→11:43)
--- NOTE | 2019-02-11 10:49 | PDOC4 ---
Operative Note Operative Note Date of procedure: 02/11/2019 Surgeon: Rivera Jimenez Preoperative diagnosis: Left great toe infection with cellulitis of forefoot Postoperative diagnosis: Same Procedure performed: #1 irrigation and debridement of left great toe and foot #2 application of wound VAC to wound less than 25 cm�. At the 3 wounds, there is a VAC sponge that tunnels from the dorsum of his foot to the center of his great toe wound, another VAC sponge at tunnels from the plantar aspect of his great toe to the Center great toe wound. Another small VAC sponge was placed on top of these. These were sealed off, and another VAC sponge was placed on the skin, on top of adhesive, to connected to the VAC suction apparatus Anesthesia: Gen. Blood loss:5 ml Findings: Large amount of gross purulence in forefoot Specimens: Swabs and tissue were sent for culture Tourniquet time: 21 minutes Complications: None Reason for procedure: Patient is very pleasant 63-year-old gentleman who was transferred down from [facility] for failure of improvement after being on IV antibiotics for his left great toe infection. It had been spreading to his forefoot. I reviewed the clinical and radiographic evidence and discussed the above surgery with him and he wished to proceed. Description of procedure: Patient was greeted in the preoperative holding area by myself for the correct extremity was verified and marked. He was taken back to the operative suite, maintaining on his scheduled antibiotics. Once in the operative room, he was transferred gently supine to the operating room table and secured the bed with all pressure points padded and had successful induction of a general anesthetic. Nonsterile tourniquet was then secured in place to his left upper thigh. Left lower extremity was then prepped and draped in our usual sterile fashion using Betadine paint. We then conducted our standard preoperative timeout. I then allow gravity exsanguination and insufflated tourniquet to 250 mmHg. I then began the procedure by debriding the blister overlying the involved area at his foot and great toe. As I was debriding the plantar aspect of his toe, I realizes when full-thickness and continued my debridement, a 1 mm piece of what appeared to be plastic, green in color, was removed. I then continued my debridement and these 2 wounds connected. I then explored the dorsum of his foot and remainder of his toe making sure I had appreciated. His wound, the purulence continued to involve the dorsum of his f oot and therefore I made about a 2 cm incision between metatarsals 1 and 2 and dissected with a hemostat and continued exploring the wound. After appreciated. Center the wound, used a Rominger and curet to debride the unhealthy necrotic tissue. After this I irrigated the wound, all them, out with about 3000 mL of sterile fluid. There was only healthy-appearing tissue left behind at this point. I then fashioned the wound VAC as noted above and ensured it had a good seal prior to leaving the operating room. Tourniquet was let down and patient was awakened from anesthesia. He tolerated this well. No complications. Postoperative plan is to admit him to the floor. He will need IV antibiotics. I put in a consult for wound care team to help facilitate his care as well. At the conclusion, he was taken to the PACU in a stable and extubated condition after being transferred gently supine to the recovery room cart. RIVERA JIMENEZ II, MD Feb 11, 2019 10:49
[2019-02-11] MEDS ORDERED: ePHEDrine PF IN SALINE 50 MG/10 ML SYRINGE. IV ONE (11:01)
[2019-02-11] MEDS ORDERED: MORPHINE SULFATE 2 MG/ML VIAL. ONE (11:36)
[2019-02-11] MEDS: MORPHINE SULFATE 2 MG/ML VIAL. IV PRN ×2 (11:42→11:53)
[2019-02-11] MEDS: fentaNYL PF VIAL 100 MCG/2 ML VIAL IV PRN ×2 (11:46→11:54)
[2019-02-11] MEDS ORDERED: HYDROmorphone 2 MG/ML VIAL ONE (11:56)
[2019-02-11] MEDS: oxyCODONE IR 5 MG TABLET PO PRN ×2 (12:43→23:20)
[2019-02-11] MEDS: VANCOMYCIN 1.5 GM in IV NORMAL SALINE 500ML BAG 500 ML IV SCH ×2 (13:09→23:24)
--- NOTE | 2019-02-11 13:16 | PDOC ---
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 foreign body (tiny pebble) was found and removed from the shireen nter aspect of the R great toe Vitals/I&O Vitals/I&O: Vital Signs Date Time Temp Pulse Resp B/P (MAP) Pulse Ox O2 Delivery O2 Flow Rate FiO2 02/11/19 12:43 Nasal Cannula 2.0 02/11/19 12:38 98.5 63 18 157/77 (103) 92 98.5 I & O 02/10/19 02/10/19 02/11/19 15:00 23:00 07:00 Intake Total 120 ml Output Total 2100 ml 2100 ml Balance -2100 ml 120 ml -2100 ml Physical Exam General: Alert, Oriented X3, Cooperative Heart: Regular rate, No murmurs Lungs: Clear Abdomen: Normal bowel sounds, Soft, No tenderness Extremities: No edema, Normal pulses, Other (no edema in his lower extremities with the exception around his right great toe (wound vac currently placed)) Skin: No rashes, No breakdown Review of Systems Review of Systems: No confusion No CO pain Assessment and Plan Assessmemt and Plan Assessment R foot cellulitis with possible foreign body (tiny pebble confirmed after removed during surgery) Polypharmacy GERD Neuropathy Chronic pain HTN Hyperlipidemia TIA Cervical fusion Some cognitive decline reported by family Obesity (BMI 31) Plan IV Antibiotics Wound care DVT prophylaxis Home meds Labs PT/OT Comment Review of Relevant I have reviewed the following items jac (where applicable) has been applied. Medications: Current Medications Medications (Trade) Dose Ordered Sig/Roseline Route PRN Reason Start Time Stop Time Status Last Admin Dose Admin Fentanyl Citrate (Fentanyl 2ml Vial) 50 mcg PRN Q5MIN PRN IV MODERATE TO SEVERE PAIN 02/11/19 10:15 02/11/19 18:00 02/11/19 11:54 Morphine Sulfate (Morphine Sulfate) 1 mg PRN Q10MIN PRN IV SEVERE PAIN 7-10 02/11/19 10:15 02/11/19 18:00 02/11/19 11:53 Hydromorphone HCl (Dilaudid) 0.5 mg PRN Q10MIN PRN IV SEV PAIN, Second choice 02/11/19 10:15 02/11/19 18:00 02/11/19 11:59 JEVON GUAJARDO III DO Feb 11, 2019 13:16
[2019-02-11] MEDS: ATORVASTATIN CALCIUM 40 MG TABLET. PO SCH (20:58)
[2019-02-12 03:00] VITALS: BP 136/67
[2019-02-12] MEDS: PIPERACILLIN/TAZOBACTAM 3.375 GM in IV NORMAL SALINE 50ML 50 ML IV SCH ×4 (06:15→23:31)
[2019-02-12 06:50] LABS: BASO % 0 % (0-3); EOS % 0 % (0-3); HEMATOCRIT 31.6 % (39.0-53.0); HEMOGLOBIN 10.8 g/dL (13.0-17.5); LYMPH # 1.1 x10^3/uL (1.0-4.8); LYMPH % 13 % (24-48); MEAN CORPUSCULAR HEMOGLOBIN 34 pg (25-35); MEAN CORPUSCULAR HGB CONC 34 g/dL (31-37); MEAN CORPUSCULAR VOLUME 100 fL (79-100); MONO # 0.9 x10^3/uL (0.0-1.1); MONO % 11 % (0-9); NEUT # 6.2 x10^3/uL (1.8-7.7); NEUT % 75 % (31-73); PLATELET COUNT 222 x10^3/uL (140-400); RED BLOOD COUNT 3.17 x10^6/uL (4.30-5.70); RED CELL DISTRIBUTION WIDTH 15.5 % (11.5-14.5); WHITE BLOOD COUNT 8.3 x10^3/uL (4.0-11.0)
[2019-02-12 07:00] VITALS: BP 162/82
[2019-02-12 07:05] LABS: CALCIUM 9.3 mg/dL (8.5-10.1); CREATININE 1.2 mg/dL (0.7-1.3); POTASSIUM 4.3 mmol/L (3.5-5.1)
--- NOTE | 2019-02-12 08:50 | PDOC ---
PROGRESS NOTES Chief Complaint Chief Complaint R foot cellulitis with foreign body GERD Neuropathy Chronic pain HTN Hyperlipidemia TIA Cervical fusion h/o MRSA Obesity (BMI 31) History of Present Illness History of Present Illness Mr Madsen is a 63-year-old M w/ PMHx chronic pain, HTN, HLD, TIA who was trans ferred down from [facility] for failure of improvement after being on IV antibiotics for his great toe infection. It had been spreading to his forefoot. To OR for I&D and wound vac placement no 02/11/19 with orthopedic surgery. He is feeling much better today. Right foot with wound vac, elevated. Awaiting cultures from OR. 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 No CP or SOB. Vitals Vitals Vital Signs Date Time Temp Pulse Resp B/P (MAP) Pulse Ox O2 Delivery O2 Flow Rate FiO2 02/12/19 07:05 Room Air 02/12/19 03:00 98.9 60 136/67 (90) 96 98.9 02/11/19 23:20 18 02/11/19 16:00 2.0 Physical Exam General: Alert, Oriented X3, Cooperative Heart: Regular rate, No murmurs Lungs: Clear Abdomen: Normal bowel sounds, Soft, No tenderness Extremities: No edema, Normal pulses, Other (no edema in his lower extremities with the exception around his right great toe (wound vac currently placed)) Skin: No rashes, No breakdown Labs LABS Laboratory Tests Test 02/12/19 06:15 White Blood Count 8.3 x10^3/uL (4.0-11.0) Red Blood Count 3.17 x10^6/uL (4.30-5.70) Hemoglobin 10.8 g/dL (13.0-17.5) Hematocrit 31.6 % (39.0-53.0) Mean Corpuscular Volume 100 fL (79-100) Mean Corpuscular Hemoglobin 34 pg (25-35) Mean Corpuscular Hemoglobin Concent 34 g/dL (31-37) Red Cell Distribution Width 15.5 % (11.5-14.5) Platelet Count 222 x10^3/uL (140-400) Neutrophils (%) (Auto) 75 % (31-73) Lymphocytes (%) (Auto) 13 % (24-48) Monocytes (%) (Auto) 11 % (0-9) Eosinophils (%) (Auto) 0 % (0-3) Basophils (%) (Auto) 0 % (0-3) Neutrophils # (Auto) 6.2 x10^3/uL (1.8-7.7) Lymphocytes # (Auto) 1.1 x10^3/uL (1.0-4.8) Monocytes # (Auto) 0.9 x10^3/uL (0.0-1.1) Eosinophils # (Auto) 0.0 x10^3/uL (0.0-0.7) Basophils # (Auto) 0.0 x10^3/uL (0.0-0.2) Sodium Level 142 mmol/L (136-145) Potassium Level 4.3 mmol/L (3.5-5.1) Chloride Level 105 mmol/L (98-107) Carbon Dioxide Level 28 mmol/L (21-32) Anion Gap 9 (6-14) Blood Urea Nitrogen 15 mg/dL (8-26) Creatinine 1.2 mg/dL (0.7-1.3) Estimated GFR (Cockcroft-Gault) 61.0 Glucose Level 106 mg/dL (70-99) Calcium Level 9.3 mg/dL (8.5-10.1) Comment Review of Relevant I have reviewed the following items jac (where applicable) has been applied. Labs Laboratory Tests Test 02/12/19 06:15 White Blood Count 8.3 x10^3/uL (4.0-11.0) Red Blood Count 3.17 x10^6/uL (4.30-5.70) Hemoglobin 10.8 g/dL (13.0-17.5) Hematocrit 31.6 % (39.0-53.0) Mean Corpuscular Volume 100 fL (79-100) Mean Corpuscular Hemoglobin 34 pg (25-35) Mean Corpuscular Hemoglobin Concent 34 g/dL (31-37) Red Cell Distribution Width 15.5 % (11.5-14.5) Platelet Count 222 x10^3/uL (140-400) Neutrophils (%) (Auto) 75 % (31-73) Lymphocytes (%) (Auto) 13 % (24-48) Monocytes (%) (Auto) 11 % (0-9) Eosinophils (%) (Auto) 0 % (0-3) Basophils (%) (Auto) 0 % (0-3) Neutrophils # (Auto) 6.2 x10^3/uL (1.8-7.7) Lymphocytes # (Auto) 1.1 x10^3/uL (1.0-4.8) Monocytes # (Auto) 0.9 x10^3/uL (0.0-1.1) Eosinophils # (Auto) 0.0 x10^3/uL (0.0-0.7) Basophils # (Auto) 0.0 x10^3/uL (0.0-0.2) Sodium Level 142 mmol/L (136-145) Potassium Level 4.3 mmol/L (3.5-5.1) Chloride Level 105 mmol/L (98-107) Carbon Dioxide Level 28 mmol/L (21-32) Anion Gap 9 (6-14) Blood Urea Nitrogen 15 mg/dL (8-26) Creatinine 1.2 mg/dL (0.7-1.3) Estimated GFR (Cockcroft-Gault) 61.0 Glucose Level 106 mg/dL (70-99) Calcium Level 9.3 mg/dL (8.5-10.1) Laboratory Tests Test 02/12/19 06:15 White Blood Count 8.3 x10^3/uL (4.0-11.0) Red Blood Count 3.17 x10^6/uL (4.30-5.70) Hemoglobin 10.8 g/dL (13.0-17.5) Hematocrit 31.6 % (39.0-53.0) Mean Corpuscular Volume 100 fL (79-100) Mean Corpuscular Hemoglobin 34 pg (25-35) Mean Corpuscular Hemoglobin Concent 34 g/dL (31-37) Red Cell Distribution Width 15.5 % (11.5-14.5) Platelet Count 222 x10^3/uL (140-400) Neutrophils (%) (Auto) 75 % (31-73) Lymphocytes (%) (Auto) 13 % (24-48) Monocytes (%) (Auto) 11 % (0-9) Eosinophils (%) (Auto) 0 % (0-3) Basophils (%) (Auto) 0 % (0-3) Neutrophils # (Auto) 6.2 x10^3/uL (1.8-7.7) Lymphocytes # (Auto) 1.1 x10^3/uL (1.0-4.8) Monocytes # (Auto) 0.9 x10^3/uL (0.0-1.1) Eosinophils # (Auto) 0.0 x10^3/uL (0.0-0.7) Basophils # (Auto) 0.0 x10^3/uL (0.0-0.2) Sodium Level 142 mmol/L (136-145) Potassium Level 4.3 mmol/L (3.5-5.1) Chloride Level 105 mmol/L (98-107) Carbon Dioxide Level 28 mmol/L (21-32) Anion Gap 9 (6-14) Blood Urea Nitrogen 15 mg/dL (8-26) Creatinine 1.2 mg/dL (0.7-1.3) Estimated GFR (Cockcroft-Gault) 61.0 Glucose Level 106 mg/dL (70-99) Calcium Level 9.3 mg/dL (8.5-10.1) Medications Current Medications Potassium Chloride (Klor-Con) 20 meq 1X ONCE PO ; Start 02/09/19 at 16:30; Stop 02/09/19 at 16:30; Status DC Atorvastatin Calcium (Lipitor) 40 mg QHS PO Last administered on 02/11/19 20:58; Start 02/09/19 at 21:00 Vitamin B Complex/ Vitamin C (Yvonne-Sy) 1 tab DAILY PO Last administered on 02/10/19 09:07; Start 02/10/19 at 09:00 Gabapentin (Neurontin) 300 mg BID PO Last administered on 02/11/19 21:00; Start 02/09/19 at 21:00 Lactobacillus Rhamnosus (Culturelle) 1 cap BID PO Last administered on 02/11/19 21:00; Start 02/09/19 at 21:00 Losartan Potassium (Cozaar) 50 mg BID PO Last administered on 02/11/19 20:59; Start 02/09/19 at 21:00 Metoprolol Tartrate (Lopressor) 25 mg BID PO Last administered on 02/11/19 21:00; Start 02/09/19 at 21:00 Mupirocin (Bactroban) 1 celia BID TP Last administered on 02/11/19 21:10; Start 02/09/19 at 21:00 Oxycodone HCl (Roxicodone) 20 mg PRN TID PRN PO SEVERE PAIN Last administered on 02/11/19 23:20; Start 02/09/19 at 18:15 Pantoprazole Sodium (Protonix) 40 mg QODAY@0730 PO ; Start 02/11/19 at 07:30 Acetaminophen (Tylenol) 500 mg PRN Q6HRS PRN PO Fever > 101.5; Start 02/09/19 at 18:15 Fluvoxamine Maleate (Luvox) 100 mg QHS PO Last administered on 02/11/19 20:59; Start 02/09/19 at 21:00 Magnesium Oxide (Magnesium Oxide) 400 mg DAILY PO Last administered on 02/10/19 09:04; Start 02/10/19 at 09:00 Multivitamins (Thera M Plus) 1 tab DAILY PO Last administered on 02/10/19 09:04; Start 02/10/19 at 09:00 Fish Oil (Fish Oil) 4,000 mg DAILY PO Last administered on 02/10/19 09:06; Start 02/10/19 at 09:00 Non-Formulary Medication (Piperacillin Sodium/Tazobactam (Piperacil-Tazobact 3.375 Gm Vl)) 3.375 gm Q6HRS IV ; Start 02/10/19 at 00:00; Status UNV Non-Formulary Medication (Vancomycin HCl/ D5w (Vancomycin 1.5 Gram/250 ml-D5w)) 1.5 gm Q12HR IV ; Start 02/09/19 at 21:00; Status UNV Vancomycin HCl 1.5 gm/Sodium Chloride 500 ml @ 250 mls/hr Q12H IV Last administered on 02/11/19 23:24; Start 02/10/19 at 00:00 Piperacillin Sod/ Tazobactam Sod 3.375 gm/Sodium Chloride 50 ml @ 100 mls/hr Q6HRS IV Last administered on 02/12/19 06:15; Start 02/09/19 at 18:30 Amlodipine Besylate (Norvasc) 5 mg DAILY PO Last administered on 02/10/19at 09:07; Start 02/10/19 at 09:00 Aspirin (Ecotrin) 81 mg DAILY PO Last administered on 02/10/19at 09:03; Start 02/10/19 at 09:00; Stop 02/10/19 at 11:37; Status DC Chlorthalidone (Thalitone) 25 mg DAILY PO Last administered on 02/10/19at 09:06; Start 02/10/19 at 09:00 Clopidogrel Bisulfate (Plavix) 75 mg DAILYWBKFT PO ; Start 02/10/19 at 08:00; Stop 02/10/19 at 11:37; Status DC Clopidogrel Bisulfate (Plavix) 75 mg DAILY PO ; Start 02/10/19 at 09:00; Status UNV Folic Acid (Folic Acid) 1 mg DAILY PO Last administered on 02/10/19at 09:06; Start 02/10/19 at 09:00 Gabapentin (Neurontin) 300 mg TID PRN PO tid; Start 02/09/19 at 19:45; Status UNV Acetaminophen/ Hydrocodone Bitart (Lortab 7.5/325) 1 tab PRN QID PRN PO MODERATE PAIN Last administered on 02/11/19at 08:09; Start 02/09/19 at 19:45 Metoprolol Tartrate (Lopressor) 25 mg BID PO ; Start 02/09/19 at 21:00; Status UNV Diclofenac Sodium (Voltaren) 75 mg DAILY PO Last administered on 02/10/19at 09:04; Start 02/10/19 at 09:00 Non-Formulary Medication (Fluvoxamine Maleate ) 1 tab QHS PO ; Start 02/09/19 at 21:00; Status UNV Non-Formulary Medication (Losartan Potassium (Cozaar)) 50 mg BID PO ; Start 02/09/19 at 21:00; Status UNV Non-Formulary Medication (Magnesium Oxide (Magnesium)) 1 cap DAILY PO ; Start 02/10/19 at 09:00; Status UNV Non-Formulary Medication ([place]-3/Dha/Epa/ Fish Oil ([place]-3 Fish Oil 1,000 Mg Sfgl)) 4,000 mg DAILY PO ; Start 02/10/19 at 09:00; Status UNV Non-Formulary Medication (Simvastatin (Zocor)) 1 tab QHS PO ; Start 02/09/19 at 21:00; Status UNV Non-Formulary Medication (Ubidecarenone (Coq-10)) 100 mg DAILY PO ; Start 02/10/19 at 09:00; Status UNV Vancomycin HCl (Vanco Per Pharmacy) 1 each PRN DAILY PRN MC SEE COMMENTS Last administered on 02/10/19at 10:30; Start 02/09/19 at 21:30 Clopidogrel Bisulfate (Plavix) 75 mg DAILYWBKFT PO ; Start 02/13/19 at 08:00 Aspirin (Ecotrin) 81 mg DAILY PO ; Start 02/13/19 at 09:00 Dextrose (Dextrose 50%-Water Syringe) 12.5 gm PRN Q15MIN PRN IV SEE COMMENTS; Start 02/10/19 at 11:45; Stop 02/10/19 at 11:50; Status DC Dextrose 250 ml PRN Q15MIN PRN IV SEE COMMENTS; Start 02/10/19 at 11:45; Stop at 11:50; Status DC Propofol 20 ml @ As Directed STK-MED ONCE IV ; Start 02/11/19 at 07:34; Stop 02/11/19 at 07:35; Status DC Lidocaine HCl (Lidocaine Pf 2% Vial) 5 ml STK-MED ONCE .ROUTE ; Start 02/11/19 at 07:34; Stop 02/11/19 at 07:35; Status DC Dexamethasone Sodium Phosphate (Decadron) 4 mg STK-MED ONCE .ROUTE ; Start 02/11/19 at 07:34; Stop 02/11/19 at 07:35; Status DC Ondansetron HCl (Zofran) 4 mg STK-MED ONCE .ROUTE ; Start 02/11/19 at 07:34; Stop 02/11/19 at 07:35; Status DC Ondansetron HCl (Zofran) 4 mg PRN Q6HRS PRN IV NAUSEA/VOMITING; Start 02/11/19 at 10:15; Stop 02/11/19 at 14:23; Status DC Fentanyl Citrate (Fentanyl 2ml Vial) 25 mcg PRN Q5MIN PRN IV MILD PAIN 1-3; Start 02/11/19 at 10:15; Stop 02/11/19 at 14:23; Status DC Fentanyl Citrate (Fentanyl 2ml Vial) 50 mcg PRN Q5MIN PRN IV MODERATE TO SEVERE PAIN Last administered on 02/11/19at 11:54; Start 02/11/19 at 10:15; Stop 02/11/19 at 14:23; Status DC Morphine Sulfate (Morphine Sulfate) 1 mg PRN Q10MIN PRN IV SEVERE PAIN 7-10 Last administered on 02/11/19at 11:53; Start 02/11/19 at 10:15; Stop 02/11/19 at 14:23; Status DC Ringer's Solution 1,000 ml @ 30 mls/hr Q24H IV ; Start 02/11/19 at 10:30; Stop 02/11/19 at 14:23; Status DC Lidocaine HCl (Xylocaine-Mpf 1% 2ml Vial) 2 ml PRN 1X PRN ID PRIOR TO IV START; Start 02/11/19 at 10:15; Stop 02/11/19 at 14:23; Status DC Hydromorphone HCl (Dilaudid) 0.5 mg PRN Q10MIN PRN IV SEV PAIN, Second choice Last administered on 02/11/19at 11:59; Start 02/11/19 at 10:15; Stop 02/11/19 at 14:23; Status DC Prochlorperazine Edisylate (Compazine) 5 mg PACU PRN PRN IV NAUSEA, MRX1; Start 02/11/19 at 10:15; Stop 02/11/19 at 14:24; Status DC Fentanyl Citrate (Fentanyl 2ml Vial) 100 mcg STK-MED ONCE .ROUTE ; Start 02/11/19 at 10:36; Stop 02/11/19 at 10:37; Status DC Ephedrine Sulfate (ePHEDrine PF IN SALINE SYRINGE) 50 mg STK-MED ONCE IV ; Start 02/11/19 at 11:01; Stop 02/11/19 at 11:02; Status DC Morphine Sulfate (Morphine Sulfate) 2 mg STK-MED ONCE .ROUTE ; Start 02/11/19 at 11:36; Stop 02/11/19 at 11:37; Status DC Fentanyl Citrate (Fentanyl 2ml Vial) 100 mcg STK-MED ONCE .ROUTE ; Start 02/11/19 at 11:43; Stop 02/11/19 at 11:44; Status DC Hydromorphone HCl (Dilaudid) 2 mg STK-MED ONCE .ROUTE ; Start 02/11/19 at 11:56; Stop 02/11/19 at 11:57; Status DC Active Scripts Active Clopidogrel (Clopidogrel Bisulfate) 75 Mg Tablet 75 Mg PO DAILYWBKFT Reported Roxicodone (Oxycodone Hcl) 30 Mg Tablet 20 Mg PO TID PRN PRN Fluvoxamine Maleate 100 Mg Tablet 1 Tab PO QHS Vancomycin 1.5 Gram/250 ml-D5w (Vancomycin HCl/D5w) 1.5 Gm/250 Ml Plast..bag 1.5 Gm IV Q12HR Zocor (Simvastatin) 40 Mg Tablet 1 Tab PO QHS Piperacil-Tazobact 3.375 Gm Vl (Piperacillin Sodium/Tazobactam) 3.375 Gm Vial 3.375 Gm IV Q6HRS Protonix (Pantoprazole Sodium) 40 Mg Tablet.dr 40 Mg PO QODAY@0730 [place] 3 Fish Oil Softgel ([place]-3 Fatty Acids/Fish Oil) 1 Each Capsule.dr 1 Each PO DAILY Mupirocin Ointment (Mupirocin) 22 Gm Oint...g. 1 Celia TP BID Metoprolol Tartrate 25 Mg Tablet 1 Tab PO BID Magnesium Oxide 400 Mg Tablet 1 Tab PO DAILY Cozaar (Losartan Potassium) 100 Mg Tablet 50 Mg PO BID Culturelle (Lactobacillus Rhamnosus Gg) 1 Each Cap.sprink 1 Each PO BID Gabapentin (Gabapentin) 300 Mg Capsule 300 Mg PO BID Nephro-Sy Tablet (Folic Acid/Vitamin B Comp W-C) 0.8 Mg Tablet 1 Tab PO DAILY Plavix (Clopidogrel Bisulfate) 75 Mg Tablet 75 Mg PO DAILY Acetaminophen 500 Mg Tablet 500 Mg PO PRN PRN Folic Acid 1 Mg Tablet 1 Tab PO DAILY Magnesium (Magnesium Oxide) 400 Mg Capsule 1 Cap PO DAILY Aspir-Low (Aspirin) 81 Mg Tablet.dr 1 Tab PO DAILY Amlodipine Besylate 5 Mg Tablet 5 Mg PO DAILY Diclofenac Sodium 75 Mg Tablet.dr 1 Tab PO DAILY Gabapentin (Gabapentin) 300 Mg Capsule 300 Mg PO TID PRN Chlorthalidone (Chlorthalidone) 25 Mg Tablet 25 Mg PO DAILY Atorvastatin Calcium 40 Mg Tablet 1 Tab PO DAILY Fluvoxamine Maleate 100 Mg Tablet 1 Tab PO QHS Losartan Potassium 50 Mg Tablet 50 Mg PO BID [place]-3 Fish Oil 1,000 Mg Sfgl ([place]-3/Dha/Epa/Fish Oil) 1,000 Mg Capsule 4,000 Mg PO DAILY Hydrocodone-Apap 7.5-325 (Hydrocodone Bit/Acetaminophen) 1 Each Tablet 1 Tab PO QID PRN Multi-Vitamin Daily (Multivitamin) 1 Each Tablet 1 Each PO DAILY Coq-10 (Ubidecarenone) 100 Mg Capsule 100 Mg PO DAILY Metoprolol Tartrate 25 Mg Tablet 25 Mg PO BID last dose this am Vitals/I & O Vital Sign - Last 24 Hours 02/11/19 02/11/19 02/11/19 02/11/19 10:12 10:28 11:31 11:31 Temp 98.7 97.6 98.7 97.6 Pulse 59 74 Resp 16 18 B/P (MAP) 146/74 131/78 Pulse Ox 96 97 O2 Delivery Room Air Room Air Mask Simple Mask O2 Flow Rate 8 8 02/11/19 02/11/19 02/11/19 02/11/19 11:42 11:46 11:50 11:53 Temp 97.6 97.6 Pulse 70 Resp 16 18 18 18 B/P (MAP) 128/77 Pulse Ox 100 100 97 97 O2 Delivery Simple Mask Simple Mask Room Air Room Air Simple Mask O2 Flow Rate 8.0 8.0 02/11/19 02/11/19 02/11/19 02/11/19 11:54 11:59 12:05 12:20 Temp 97.6 97.6 97.6 97.6 Pulse 60 60 Resp 18 16 18 16 B/P (MAP) 136/74 148/78 Pulse Ox 99 100 99 99 O2 Delivery Room Air Room Air Room Air Nasal Cannula Simple Mask O2 Flow Rate 2 02/11/19 02/11/19 02/11/19 02/11/19 12:38 12:39 12:39 12:39 Temp 98.5 98.5 Pulse 63 Resp 18 B/P (MAP) 157/77 (103) Pulse Ox 92 O2 Delivery Nasal Cannula Nasal Cannula Nasal Cannula Nasal Cannula O2 Flow Rate 2.0 2.0 2.0 2.0 02/11/19 02/11/19 02/11/19 02/11/19 12:43 12:46 13:00 13:15 Pulse 67 71 65 B/P (MAP) 147/63 (91) 167/105 (125) 153/78 (103) Pulse Ox 96 95 O2 Delivery Nasal Cannula Nasal Cannula Nasal Cannula Room Air O2 Flow Rate 2.0 2.0 2.0 02/11/19 02/11/19 02/11/19 02/11/19 13:32 14:00 14:30 15:00 Pulse 73 65 74 B/P (MAP) 135/63 (87) 132/73 (92) 128/83 (98) 123/63 (83) Pulse Ox 97 93 94 94 O2 Delivery Nasal Cannula Nasal Cannula Nasal Cannula Nasal Cannula O2 Flow Rate 2.0 2.0 2.0 2.0 02/11/19 02/11/19 02/11/19 02/11/19 16:00 19:00 20:00 20:59 Temp 99.2 99.2 Pulse 60 63 60 B/P (MAP) 135/77 (96) 142/73 (96) 142/77 Pulse Ox 95 95 O2 Delivery Nasal Cannula Nasal Cannula Room Air O2 Flow Rate 2.0 02/11/19 02/11/19 02/11/19 02/12/19 21:00 23:00 23:20 03:00 Temp 98.0 98.9 98.0 98.9 Pulse 60 67 60 Resp 18 B/P (MAP) 147/77 152/71 (98) 136/67 (90) Pulse Ox 96 96 O2 Delivery Room Air Room Air Room Air 02/12/19 07:05 O2 Delivery Room Air Intake and Output 02/11/19 02/11/19 02/12/19 14:59 22:59 06:59 Intake Total 25 ml 520 ml Output Total 375 ml 350 ml 1200 ml Balance -350 ml 170 ml -1200 ml JAMES MARKS MD Feb 12, 2019 08:50
[2019-02-12] MEDS: MUPIROCIN 2 % NASAL OINTMENT 22GM TUBE. TP SCH ×2 (09:00→21:07)
[2019-02-12] MEDS: FOLIC ACID 1 MG TABLET. PO SCH (09:26)
[2019-02-12] MEDS: MAGNESIUM OXIDE 400 MG TABLET PO SCH (09:26)
[2019-02-12] MEDS: CHLORTHALIDONE 25 MG TABLET. PO SCH (09:26)
[2019-02-12] MEDS: MULTIVITAMIN with MINERAL TABLET. PO SCH (09:26)
[2019-02-12] MEDS: amLODIPine BESYLATE 5 MG TABLET PO SCH (09:27)
[2019-02-12] MEDS: METOPROLOL TART IMMED RELEASE 25 MG TABLET. PO SCH ×2 (09:27→21:06)
[2019-02-12] MEDS: LACTOBACILLUS RHAMNOSUS GG 1 CAPSULE. PO SCH ×2 (09:27→21:06)
[2019-02-12] MEDS: LOSARTAN POTASSIUM 50 MG TABLET. PO SCH ×2 (09:28→21:05)
[2019-02-12] MEDS: OMEGA-3 FATTY ACIDS/FISH OIL 1,000 MG CAPSULE. PO SCH (09:28)
[2019-02-12] MEDS: DICLOFENAC SODIUM 25 MG TABLET.DR PO SCH (09:28)
[2019-02-12] MEDS: GABAPENTIN 300 MG CAPSULE. PO SCH ×2 (09:35→21:06)
[2019-02-12] MEDS: FOLIC/VIT B COMP W-C (RENAL) TABLET. PO SCH (09:35)
--- NOTE | 2019-02-12 09:47 | PDOC ---
ORTHO PROGRESS NOTES Subjective His foot feels better today, no new complaints Vitals Vital Signs Date Time Temp Pulse Resp B/P (MAP) Pulse Ox O2 Delivery O2 Flow Rate FiO2 02/12/19 09:28 67 162/82 02/12/19 07:05 Room Air 02/12/19 03:00 98.9 96 98.9 02/11/19 23:20 18 02/11/19 16:00 2.0 Labs Laboratory Tests Test 02/12/19 06:15 White Blood Count 8.3 x10^3/uL (4.0-11.0) Red Blood Count 3.17 x10^6/uL (4.30-5.70) Hemoglobin 10.8 g/dL (13.0-17.5) Hematocrit 31.6 % (39.0-53.0) Mean Corpuscular Volume 100 fL (79-100) Mean Corpuscular Hemoglobin 34 pg (25-35) Mean Corpuscular Hemoglobin Concent 34 g/dL (31-37) Red Cell Distribution Width 15.5 % (11.5-14.5) Platelet Count 222 x10^3/uL (140-400) Neutrophils (%) (Auto) 75 % (31-73) Lymphocytes (%) (Auto) 13 % (24-48) Monocytes (%) (Auto) 11 % (0-9) Eosinophils (%) (Auto) 0 % (0-3) Basophils (%) (Auto) 0 % (0-3) Neutrophils # (Auto) 6.2 x10^3/uL (1.8-7.7) Lymphocytes # (Auto) 1.1 x10^3/uL (1.0-4.8) Monocytes # (Auto) 0.9 x10^3/uL (0.0-1.1) Eosinophils # (Auto) 0.0 x10^3/uL (0.0-0.7) Basophils # (Auto) 0.0 x10^3/uL (0.0-0.2) Sodium Level 142 mmol/L (136-145) Potassium Level 4.3 mmol/L (3.5-5.1) Chloride Level 105 mmol/L (98-107) Carbon Dioxide Level 28 mmol/L (21-32) Anion Gap 9 (6-14) Blood Urea Nitrogen 15 mg/dL (8-26) Creatinine 1.2 mg/dL (0.7-1.3) Estimated GFR (Cockcroft-Gault) 61.0 Glucose Level 106 mg/dL (70-99) Calcium Level 9.3 mg/dL (8.5-10.1) Laboratory Tests Test 02/12/19 06:15 White Blood Count 8.3 x10^3/uL (4.0-11.0) Red Blood Count 3.17 x10^6/uL (4.30-5.70) Hemoglobin 10.8 g/dL (13.0-17.5) Hematocrit 31.6 % (39.0-53.0) Mean Corpuscular Volume 100 fL (79-100) Mean Corpuscular Hemoglobin 34 pg (25-35) Mean Corpuscular Hemoglobin Concent 34 g/dL (31-37) Red Cell Distribution Width 15.5 % (11.5-14.5) Platelet Count 222 x10^3/uL (140-400) Neutrophils (%) (Auto) 75 % (31-73) Lymphocytes (%) (Auto) 13 % (24-48) Monocytes (%) (Auto) 11 % (0-9) Eosinophils (%) (Auto) 0 % (0-3) Basophils (%) (Auto) 0 % (0-3) Neutrophils # (Auto) 6.2 x10^3/uL (1.8-7.7) Lymphocytes # (Auto) 1.1 x10^3/uL (1.0-4.8) Monocytes # (Auto) 0.9 x10^3/uL (0.0-1.1) Eosinophils # (Auto) 0.0 x10^3/uL (0.0-0.7) Basophils # (Auto) 0.0 x10^3/uL (0.0-0.2) Sodium Level 142 mmol/L (136-145) Potassium Level 4.3 mmol/L (3.5-5.1) Chloride Level 105 mmol/L (98-107) Carbon Dioxide Level 28 mmol/L (21-32) Anion Gap 9 (6-14) Blood Urea Nitrogen 15 mg/dL (8-26) Creatinine 1.2 mg/dL (0.7-1.3) Estimated GFR (Cockcroft-Gault) 61.0 Glucose Level 106 mg/dL (70-99) Calcium Level 9.3 mg/dL (8.5-10.1) Notes A and A in bed VAC in place edema better, erythema unchanged Assessment and Plan Case Mgmt ID for abx wound care for VAC Cx pending WILMER JIMENEZ II, MD Feb 12, 2019 09:47
[2019-02-12 11:00] VITALS: BP 155/64
--- NOTE | 2019-02-12 11:45 | PDOC ---
Infectious Disease Note Vital Sign Vital Signs Vital Signs Date Time Temp Pulse Resp B/P (MAP) Pulse Ox O2 Delivery O2 Flow Rate FiO2 02/12/19 09:28 67 162/82 02/12/19 07:05 Room Air 02/12/19 07:00 98.3 16 98 98.3 02/11/19 16:00 2.0 Labs Lab Laboratory Tests Test 02/12/19 06:15 White Blood Count 8.3 x10^3/uL (4.0-11.0) Red Blood Count 3.17 x10^6/uL (4.30-5.70) Hemoglobin 10.8 g/dL (13.0-17.5) Hematocrit 31.6 % (39.0-53.0) Mean Corpuscular Volume 100 fL (79-100) Mean Corpuscular Hemoglobin 34 pg (25-35) Mean Corpuscular Hemoglobin Concent 34 g/dL (31-37) Red Cell Distribution Width 15.5 % (11.5-14.5) Platelet Count 222 x10^3/uL (140-400) Neutrophils (%) (Auto) 75 % (31-73) Lymphocytes (%) (Auto) 13 % (24-48) Monocytes (%) (Auto) 11 % (0-9) Eosinophils (%) (Auto) 0 % (0-3) Basophils (%) (Auto) 0 % (0-3) Neutrophils # (Auto) 6.2 x10^3/uL (1.8-7.7) Lymphocytes # (Auto) 1.1 x10^3/uL (1.0-4.8) Monocytes # (Auto) 0.9 x10^3/uL (0.0-1.1) Eosinophils # (Auto) 0.0 x10^3/uL (0.0-0.7) Basophils # (Auto) 0.0 x10^3/uL (0.0-0.2) Sodium Level 142 mmol/L (136-145) Potassium Level 4.3 mmol/L (3.5-5.1) Chloride Level 105 mmol/L (98-107) Carbon Dioxide Level 28 mmol/L (21-32) Anion Gap 9 (6-14) Blood Urea Nitrogen 15 mg/dL (8-26) Creatinine 1.2 mg/dL (0.7-1.3) Estimated GFR (Cockcroft-Gault) 61.0 Glucose Level 106 mg/dL (70-99) Calcium Level 9.3 mg/dL (8.5-10.1) Objective Assessment Right great toe infection and cellulitis of forefoot s/p debridement and removal of foreign body, 02/11 -s/p bedside debridement, 02/08 ([facility]). cultures: Staph aureus so far Peripheral neuropathy Hypertension h/o MRSA Obesity dog exposure Plan Plan of Care Vanc and Zosyn f/u cultures from [facility] and here Monitor renal function closely Local wound care w/ vac as directed Thank you [id number] Attending Co-Sign Attending Co-Sign The patient was seen and interviewed as well as examined at the bedside. The chart was reviewed. The case was discussed. Agree with the plan of care. MARY FOLEY APRN Feb 12, 2019 11:45 DILLON YUSUF MD Feb 12, 2019 14:20
[2019-02-12] MEDS: VANCOMYCIN 1.5 GM in IV NORMAL SALINE 500ML BAG 500 ML IV SCH (12:19)
--- NOTE | 2019-02-12 12:31 | CONS ---
DATE OF CONSULTATION: 02/12/2019 REFERRING PHYSICIAN: Dr. Nunes. REASON FOR CONSULTATION: Right foot infection. HISTORY OF PRESENT ILLNESS: The patient is a 63-year-old male with a past medical history of chronic back pain with peripheral neuropathy of lower extremities. He says he was in his garage the other day barefooted. The following day, he developed right foot pain, swelling, and streaking redness. He was seen by his primary care provider, Dr. Meyers and admitted to [facility] in [place]. An x-ray showed no acute fracture. A followup CT demonstrated extensive nonspecific subcutaneous edema, most pronounced at the dorsum and lateral aspect of the foot; and punctate radiodensity at the plantar foot at the level of the great toe proximal phalanx of uncertain etiology, but potentially a small retained foreign body. He had a blister that was debrided down to the dermis on 02/08/2019. Culture is growing Staphylococcus aureus. Susceptibilities are still pending. A PICC was placed. He was started on vancomycin via a PICC. He was transferred to [place] for further evaluation. He was taken to the OR yesterday where he underwent irrigation, debridement, and removal of a foreign body along with a wound VAC placement performed by Dr. Nunes. Intraoperative cultures are pending. The patient says his pain is much better. He is noticed the redness and swelling have improved. He reports having some fevers and chills prior to admission that have since settled down. PAST MEDICAL HISTORY: Chronic back pain, peripheral neuropathy, TIA, coronary artery disease, hyperlipidemia, GERD, arthritis, lumbar fusion, hypertension, sleep apnea, colonic polyps, history of kidney stones, ADHD, depression and anxiety, history of MRSA. PAST SURGICAL HISTORY: As mentioned above. Carotid endarterectomy, cholecystectomy, rotator cuff surgery, right total knee arthroplasty, back surgery, left total knee arthroplasty, carpal tunnel surgery bilaterally, hammertoe repair. FAMILY HISTORY: Hypertension. SOCIAL HISTORY: The patient is retired. He is a marine . Nonsmoker. He drinks about 7 alcoholic beverages a day. ALLERGIES: No known drug allergies. MEDICATIONS: Include vancomycin, Zosyn, probiotics. Other medications are available and have been reviewed on the MAR. REVIEW OF SYSTEMS: Per HPI, otherwise all other review of systems are negative. PHYSICAL EXAMINATION: VITAL SIGNS: Temperature is 98.3, blood pressure 162/82, heart rate 67, respiratory rate 16, pulse oximetry is 98% on room air. GENERAL: The patient is sitting in a chair, alert, in no apparent distress. HEENT: Pupils equally round and reactive. Normal conjunctivae. Oropharynx pink and moist. NECK: Supple. LUNGS: Clear to auscultation. HEART: S1, S2. ABDOMEN: Obese, soft, and nontender with bowel sounds present. EXTREMITIES: No gross edema or cyanosis. Left foot is mildly swollen, red, and warm with a wound VAC in place. Distal pulses palpable. SKIN: Warm to touch. No signs of rash. Multiple tattoos. NEUROLOGIC: Alert and oriented x 3. RUE-PICC (02-07) without signs of any complications. LABORATORY DATA: Today's WBC 8.3, hemoglobin 10.8, platelets 222,000. Electrolytes are unremarkable. Creatinine 1.2, BUN 15, glucose 106. Blood cultures from 02/06, negative. Wound culture per HPI. IMAGING: Per HPI. IMPRESSION: 1. Right great toe infection and cellulitis of forefoot, status post debridement and removal of foreign body on 02/11/2019. Previously underwent a bedside debridement on the first with cultures growing Staph aureus so far ([facility]). 2. Peripheral neuropathy. 3. Hypertension. 4. History of methicillin-resistant Staphylococcus aureus. 5. Obesity. PLAN: Continue the vancomycin and Zosyn. We will follow up on wound cultures from [facility], as well as here. Continue to monitor renal function closely. Local wound care with VAC as directed. Thank you, Dr. Nunes for asking us to participate in this patient's care. Should have further questions or concerns, please call. DILLON YUSUF MD DR: DRE/kayode JOB#: [id number] / [id number] KARLA
--- NOTE | 2019-02-12 13:41 | NUR ---
SS following for discharge planning. SS reviewed pt chart. Pt is from home with spouse and is currently on room air. PT recommended home with assistance at discharge. Per physician pt will need wound vac and home healthcare upon discharge. Nurse navigator from [facility] meeting with pt to discuss home healthcare. SS will continue to follow for discharge planning.
--- NOTE | 2019-02-12 14:16 | NUR ---
IP: I received a faxed R foot wound culture from [facility] on 02/12/19. R foot is mrsa + requiring contact precautions.
[2019-02-12 15:00] VITALS: BP 137/67
--- NOTE | 2019-02-12 15:30 | NUR ---
wound care patient seen per wound care consult. patients wound vac placed on 02/11/2019. wound care will continue to f/u for possible discharge plans, wound vac will be change Tuesday02/14/2019.
[2019-02-12] MEDS: oxyCODONE IR 5 MG TABLET PO PRN (16:03)
[2019-02-12 19:00] VITALS: BP 145/72
[2019-02-12] MEDS: ATORVASTATIN CALCIUM 40 MG TABLET. PO SCH (21:05)
[2019-02-12 23:00] VITALS: BP 153/77
[2019-02-13] MEDS: VANCOMYCIN 1.5 GM in IV NORMAL SALINE 500ML BAG 500 ML IV SCH (00:10)
[2019-02-13] MEDS: oxyCODONE IR 5 MG TABLET PO PRN ×2 (00:14→23:17)
[2019-02-13 04:30] LABS: BASO % 1 % (0-3); EOS # 0.2 x10^3/uL (0.0-0.7); EOS % 3 % (0-3); HEMATOCRIT 32.6 % (39.0-53.0); LYMPH # 1.9 x10^3/uL (1.0-4.8); LYMPH % 25 % (24-48); MEAN CORPUSCULAR HEMOGLOBIN 34 pg (25-35); MEAN CORPUSCULAR HGB CONC 34 g/dL (31-37); MEAN CORPUSCULAR VOLUME 100 fL (79-100); MONO # 1.1 x10^3/uL (0.0-1.1); MONO % 14 % (0-9); NEUT # 4.3 x10^3/uL (1.8-7.7); NEUT % 57 % (31-73); PLATELET COUNT 245 x10^3/uL (140-400); RED BLOOD COUNT 3.25 x10^6/uL (4.30-5.70); RED CELL DISTRIBUTION WIDTH 15.4 % (11.5-14.5); WHITE BLOOD COUNT 7.5 x10^3/uL (4.0-11.0)
[2019-02-13] MEDS: PIPERACILLIN/TAZOBACTAM 3.375 GM in IV NORMAL SALINE 50ML 50 ML IV SCH ×2 (06:00→12:26)
[2019-02-13 07:00] VITALS: BP 156/76
[2019-02-13] MEDS: PANTOPRAZOLE 40 MG TABLET.DR. PO SCH (07:30)
[2019-02-13] MEDS: CLOPIDOGREL BISULFATE 75 MG TABLET PO SCH (08:00)
[2019-02-13 08:29] LABS: CALCIUM 9.7 mg/dL (8.5-10.1); CREATININE 1.4 mg/dL (0.7-1.3)
[2019-02-13 08:30] LABS: POTASSIUM 5.5 mmol/L (3.5-5.1)
--- NOTE | 2019-02-13 08:42 | PDOC ---
PROGRESS NOTES Chief Complaint Chief Complaint R foot cellulitis with foreign body GERD Neuropathy Chronic pain HTN Hyperlipidemia TIA Cervical fusion h/o MRSA Obesity (BMI 31) CYNDI - likely ATN/AIN, will hold morning dose of vancomycin, hold NSAIDs, hold ARB Hyperkalemia - hold losartan for today History of Present Illness History of Present Illness Mr Madsen is a 63-year-old M w/ PMHx chronic pain, HTN, HLD, TIA who was transferred down from [facility] for failure of improvement after being on IV antibiotics for his great toe infection. It had been spreading to his forefoot. To OR for I&D and wound vac placement no 02/11/19 with orthopedic surgery. He is feeling much better today. Right foot with wound vac, elevated. Awaiting cultures from OR. 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 No CP or SOB. K is 5.5 this morning, Cr up to 1.4. Plan: D/w ID initial [place] culture positive for MRSA, still awaiting OR cultures from here. I have held vanco, losartan, mobic for CYNDI and hyperkalemia, will d/w ID zyvox vs daptomycin, etc Vitals Vitals Vital Signs Date Time Temp Pulse Resp B/P (MAP) Pulse Ox O2 Delivery O2 Flow Rate FiO2 02/13/19 01:14 20 Room Air 02/12/19 23:00 97.5 59 153/77 (102) 95 97.5 Physical Exam General: Alert, Oriented X3, Cooperative Heart: Regular rate, No murmurs Lungs: Clear Abdomen: Normal bowel sounds, Soft, No tenderness Extremities: No edema, Normal pulses, Other (no edema in his lower extremities with the exception around his right great toe (wound vac currently placed)) Skin: No rashes, No breakdown Labs LABS Laboratory Tests Test 02/13/19 03:48 White Blood Count 7.5 x10^3/uL (4.0-11.0) Red Blood Count 3.25 x10^6/uL (4.30-5.70) Hemoglobin 11.0 g/dL (13.0-17.5) Hematocrit 32.6 % (39.0-53.0) Mean Corpuscular Volume 100 fL (79-100) Mean Corpuscular Hemoglobin 34 pg (25-35) Mean Corpuscular Hemoglobin Concent 34 g/dL (31-37) Red Cell Distribution Width 15.4 % (11.5-14.5) Platelet Count 245 x10^3/uL (140-400) Neutrophils (%) (Auto) 57 % (31-73) Lymphocytes (%) (Auto) 25 % (24-48) Monocytes (%) (Auto) 14 % (0-9) Eosinophils (%) (Auto) 3 % (0-3) Basophils (%) (Auto) 1 % (0-3) Neutrophils # (Auto) 4.3 x10^3/uL (1.8-7.7) Lymphocytes # (Auto) 1.9 x10^3/uL (1.0-4.8) Monocytes # (Auto) 1.1 x10^3/uL (0.0-1.1) Eosinophils # (Auto) 0.2 x10^3/uL (0.0-0.7) Basophils # (Auto) 0.0 x10^3/uL (0.0-0.2) Sodium Level 144 mmol/L (136-145) Potassium Level 5.5 mmol/L (3.5-5.1) Chloride Level 106 mmol/L (98-107) Carbon Dioxide Level 32 mmol/L (21-32) Anion Gap 6 (6-14) Blood Urea Nitrogen 20 mg/dL (8-26) Creatinine 1.4 mg/dL (0.7-1.3) Estimated GFR (Cockcroft-Gault) 51.0 Glucose Level 106 mg/dL (70-99) Calcium Level 9.7 mg/dL (8.5-10.1) Comment Review of Relevant I have reviewed the following items jac (where applicable) has been applied. Labs Laboratory Tests Test 02/12/19 06:15 02/13/19 03:48 White Blood Count 8.3 x10^3/uL (4.0-11.0) 7.5 x10^3/uL (4.0-11.0) Red Blood Count 3.17 x10^6/uL (4.30-5.70) 3.25 x10^6/uL (4.30-5.70) Hemoglobin 10.8 g/dL (13.0-17.5) 11.0 g/dL (13.0-17.5) Hematocrit 31.6 % (39.0-53.0) 32.6 % (39.0-53.0) Mean Corpuscular Volume 100 fL (79-100) 100 fL (79-100) Mean Corpuscular Hemoglobin 34 pg (25-35) 34 pg (25-35) Mean Corpuscular Hemoglobin Concent 34 g/dL (31-37) 34 g/dL (31-37) Red Cell Distribution Width 15.5 % (11.5-14.5) 15.4 % (11.5-14.5) Platelet Count 222 x10^3/uL (140-400) 245 x10^3/uL (140-400) Neutrophils (%) (Auto) 75 % (31-73) 57 % (31-73) Lymphocytes (%) (Auto) 13 % (24-48) 25 % (24-48) Monocytes (%) (Auto) 11 % (0-9) 14 % (0-9) Eosinophils (%) (Auto) 0 % (0-3) 3 % (0-3) Basophils (%) (Auto) 0 % (0-3) 1 % (0-3) Neutrophils # (Auto) 6.2 x10^3/uL (1.8-7.7) 4.3 x10^3/uL (1.8-7.7) Lymphocytes # (Auto) 1.1 x10^3/uL (1.0-4.8) 1.9 x10^3/uL (1.0-4.8) Monocytes # (Auto) 0.9 x10^3/uL (0.0-1.1) 1.1 x10^3/uL (0.0-1.1) Eosinophils # (Auto) 0.0 x10^3/uL (0.0-0.7) 0.2 x10^3/uL (0.0-0.7) Basophils # (Auto) 0.0 x10^3/uL (0.0-0.2) 0.0 x10^3/uL (0.0-0.2) Sodium Level 142 mmol/L (136-145) 144 mmol/L (136-145) Potassium Level 4.3 mmol/L (3.5-5.1) 5.5 mmol/L (3.5-5.1) Chloride Level 105 mmol/L (98-107) 106 mmol/L (98-107) Carbon Dioxide Level 28 mmol/L (21-32) 32 mmol/L (21-32) Anion Gap 9 (6-14) 6 (6-14) Blood Urea Nitrogen 15 mg/dL (8-26) 20 mg/dL (8-26) Creatinine 1.2 mg/dL (0.7-1.3) 1.4 mg/dL (0.7-1.3) Estimated GFR (Cockcroft-Gault) 61.0 51.0 Glucose Level 106 mg/dL (70-99) 106 mg/dL (70-99) Calcium Level 9.3 mg/dL (8.5-10.1) 9.7 mg/dL (8.5-10.1) Laboratory Tests Test 02/13/19 03:48 White Blood Count 7.5 x10^3/uL (4.0-11.0) Red Blood Count 3.25 x10^6/uL (4.30-5.70) Hemoglobin 11.0 g/dL (13.0-17.5) Hematocrit 32.6 % (39.0-53.0) Mean Corpuscular Volume 100 fL (79-100) Mean Corpuscular Hemoglobin 34 pg (25-35) Mean Corpuscular Hemoglobin Concent 34 g/dL (31-37) Red Cell Distribution Width 15.4 % (11.5-14.5) Platelet Count 245 x10^3/uL (140-400) Neutrophils (%) (Auto) 57 % (31-73) Lymphocytes (%) (Auto) 25 % (24-48) Monocytes (%) (Auto) 14 % (0-9) Eosinophils (%) (Auto) 3 % (0-3) Basophils (%) (Auto) 1 % (0-3) Neutrophils # (Auto) 4.3 x10^3/uL (1.8-7.7) Lymphocytes # (Auto) 1.9 x10^3/uL (1.0-4.8) Monocytes # (Auto) 1.1 x10^3/uL (0.0-1.1) Eosinophils # (Auto) 0.2 x10^3/uL (0.0-0.7) Basophils # (Auto) 0.0 x10^3/uL (0.0-0.2) Sodium Level 144 mmol/L (136-145) Potassium Level 5.5 mmol/L (3.5-5.1) Chloride Level 106 mmol/L (98-107) Carbon Dioxide Level 32 mmol/L (21-32) Anion Gap 6 (6-14) Blood Urea Nitrogen 20 mg/dL (8-26) Creatinine 1.4 mg/dL (0.7-1.3) Estimated GFR (Cockcroft-Gault) 51.0 Glucose Level 106 mg/dL (70-99) Calcium Level 9.7 mg/dL (8.5-10.1) Medications Current Medications Potassium Chloride (Klor-Con) 20 meq 1X ONCE PO ; Start 02/09/19 at 16:30; Stop 02/09/19 at 16:30; Status DC Atorvastatin Calcium (Lipitor) 40 mg QHS PO Last administered on 02/12/19 21:05; Start 02/09/19 at 21:00 Vitamin B Complex/ Vitamin C (Yvonne-Sy) 1 tab DAILY PO Last administered on 02/12/19 09:35; Start 02/10/19 at 09:00 Gabapentin (Neurontin) 300 mg BID PO Last administered on 02/12/19 21:06; Start 02/09/19 at 21:00 Lactobacillus Rhamnosus (Culturelle) 1 cap BID PO Last administered on 02/12/19 21:06; Start 02/09/19 at 21:00 Losartan Potassium (Cozaar) 50 mg BID PO Last administered on 02/12/19 21:05; Start 02/09/19 at 21:00 Metoprolol Tartrate (Lopressor) 25 mg BID PO Last administered on 02/12/19 21:06; Start 02/09/19 at 21:00 Mupirocin (Bactroban) 1 celia BID TP Last administered on 02/12/19 21:07; Start 02/09/19 at 21:00 Oxycodone HCl (Roxicodone) 20 mg PRN TID PRN PO SEVERE PAIN Last administered on 02/13/19 00:14; Start 02/09/19 at 18:15 Pantoprazole Sodium (Protonix) 40 mg QODAY@0730 PO ; Start 02/11/19 at 07:30 Acetaminophen (Tylenol) 500 mg PRN Q6HRS PRN PO Fever > 101.5; Start 02/09/19 at 18:15 Fluvoxamine Maleate (Luvox) 100 mg QHS PO Last administered on 02/12/19 21:05; Start 02/09/19 at 21:00 Magnesium Oxide (Magnesium Oxide) 400 mg DAILY PO Last administered on 02/12/19 09:26; Start 02/10/19 at 09:00 Multivitamins (Thera M Plus) 1 tab DAILY PO Last administered on 02/12/19 09:26; Start 02/10/19 at 09:00 Fish Oil (Fish Oil) 4,000 mg DAILY PO Last administered on 02/12/19 09:28; Start 02/10/19 at 09:00 Non-Formulary Medication (Piperacillin Sodium/Tazobactam (Piperacil-Tazobact 3.375 Gm Vl)) 3.375 gm Q6HRS IV ; Start 02/10/19 at 00:00; Status UNV Non-Formulary Medication (Vancomycin HCl/ D5w (Vancomycin 1.5 Gram/250 ml-D5w)) 1.5 gm Q12HR IV ; Start 02/09/19 at 21:00; Status UNV Vancomycin HCl 1.5 gm/Sodium Chloride 500 ml @ 250 mls/hr Q12H IV Last a dministered on 02/13/19 00:10; Start 02/10/19 at 00:00 Piperacillin Sod/ Tazobactam Sod 3.375 gm/Sodium Chloride 50 ml @ 100 mls/hr Q6HRS IV Last administered on 02/12/19 23:31; Start 02/09/19 at 18:30 Amlodipine Besylate (Norvasc) 5 mg DAILY PO Last administered on 02/12/19 09:27; Start 02/10/19 at 09:00 Aspirin (Ecotrin) 81 mg DAILY PO Last administered on 02/10/19 09:03; Start 02/10/19 at 09:00; Stop 02/10/19 at 11:37; Status DC Chlorthalidone (Thalitone) 25 mg DAILY PO Last administered on 02/12/19 09:26; Start 02/10/19 at 09:00 Clopidogrel Bisulfate (Plavix) 75 mg DAILYWBKFT PO ; Start 02/10/19 at 08:00; Stop 02/10/19 at 11:37; Status DC Clopidogrel Bisulfate (Plavix) 75 mg DAILY PO ; Start 02/10/19 at 09:00; Status UNV Folic Acid (Folic Acid) 1 mg DAILY PO Last administered on 02/12/19at 09:26; Start 02/10/19 at 09:00 Gabapentin (Neurontin) 300 mg TID PRN PO tid; Start 02/09/19 at 19:45; Status UNV Acetaminophen/ Hydrocodone Bitart (Lortab 7.5/325) 1 tab PRN QID PRN PO MODERATE PAIN Last administered on 02/11/19at 08:09; Start 02/09/19 at 19:45 Metoprolol Tartrate (Lopressor) 25 mg BID PO ; Start 02/09/19 at 21:00; Status UNV Diclofenac Sodium (Voltaren) 75 mg DAILY PO Last administered on 02/12/19at 09:28; Start 02/10/19 at 09:00 Non-Formulary Medication (Fluvoxamine Maleate ) 1 tab QHS PO ; Start 02/09/19 at 21:00; Status UNV Non-Formulary Medication (Losartan Potassium (Cozaar)) 50 mg BID PO ; Start 02/09/19 at 21:00; Status UNV Non-Formulary Medication (Magnesium Oxide (Magnesium)) 1 cap DAILY PO ; Start at 09:00; Status UNV Non-Formulary Medication ([place]-3/Dha/Epa/ Fish Oil ([place]-3 Fish Oil 1,000 Mg Sfgl)) 4,000 mg DAILY PO ; Start 02/10/19 at 09:00; Status UNV Non-Formulary Medication (Simvastatin (Zocor)) 1 tab QHS PO ; Start 02/09/19 at 21:00; Status UNV Non-Formulary Medication (Ubidecarenone (Coq-10)) 100 mg DAILY PO ; Start 02/10/19 at 09:00; Status UNV Vancomycin HCl (Vanco Per Pharmacy) 1 each PRN DAILY PRN MC SEE COMMENTS Last administered on 02/10/19at 10:30; Start 02/09/19 at 21:30 Clopidogrel Bisulfate (Plavix) 75 mg DAILYWBKFT PO ; Start 02/13/19 at 08:00 Aspirin (Ecotrin) 81 mg DAILY PO ; Start 02/13/19 at 09:00 Dextrose (Dextrose 50%-Water Syringe) 12.5 gm PRN Q15MIN PRN IV SEE COMMENTS; Start 02/10/19 at 11:45; Stop 02/10/19 at 11:50; Status DC Dextrose 250 ml PRN Q15MIN PRN IV SEE COMMENTS; Start 02/10/19 at 11:45; Stop 02/10/19 at 11:50; Status DC Propofol 20 ml @ As Directed STK-MED ONCE IV ; Start 02/11/19 at 07:34; Stop 02/11/19 at 07:35; Status DC Lidocaine HCl (Lidocaine Pf 2% Vial) 5 ml STK-MED ONCE .ROUTE ; Start 02/11/19 at 07:34; Stop 02/11/19 at 07:35; Status DC Dexamethasone Sodium Phosphate (Decadron) 4 mg STK-MED ONCE .ROUTE ; Start 02/11/19 at 07:34; Stop 02/11/19 at 07:35; Status DC Ondansetron HCl (Zofran) 4 mg STK-MED ONCE .ROUTE ; Start 02/11/19 at 07:34; Stop 02/11/19 at 07:35; Status DC Ondansetron HCl (Zofran) 4 mg PRN Q6HRS PRN IV NAUSEA/VOMITING; Start 02/11/19 at 10:15; Stop 02/11/19 at 14:23; Status DC Fentanyl Citrate (Fentanyl 2ml Vial) 25 mcg PRN Q5MIN PRN IV MILD PAIN 1-3; Start 02/11/19 at 10:15; Stop 02/11/19 at 14:23; Status DC Fentanyl Citrate (Fentanyl 2ml Vial) 50 mcg PRN Q5MIN PRN IV MODERATE TO SEVERE PAIN Last administered on 02/11/19at 11:54; Start 02/11/19 at 10:15; Stop 02/11/19 at 14:23; Status DC Morphine Sulfate (Morphine Sulfate) 1 mg PRN Q10MIN PRN IV SEVERE PAIN 7-10 Last administered on 02/11/19at 11:53; Start 02/11/19 at 10:15; Stop 02/11/19 at 14:23; Status DC Ringer's Solution 1,000 ml @ 30 mls/hr Q24H IV ; Start 02/11/19 at 10:30; Stop 02/11/19 at 14:23; Status DC Lidocaine HCl (Xylocaine-Mpf 1% 2ml Vial) 2 ml PRN 1X PRN ID PRIOR TO IV START; Start 02/11/19 at 10:15; Stop 02/11/19 at 14:23; Status DC Hydromorphone HCl (Dilaudid) 0.5 mg PRN Q10MIN PRN IV SEV PAIN, Second choice Last administered on 02/11/19at 11:59; Start 02/11/19 at 10:15; Stop 02/11/19 at 14:23; Status DC Prochlorperazine Edisylate (Compazine) 5 mg PACU PRN PRN IV NAUSEA, MRX1; Start 02/11/19 at 10:15; Stop 02/11/19 at 14:24; Status DC Fentanyl Citrate (Fentanyl 2ml Vial) 100 mcg STK-MED ONCE .ROUTE ; Start 02/11/19 at 10:36; Stop 02/11/19 at 10:37; Status DC Ephedrine Sulfate (ePHEDrine PF IN SALINE SYRINGE) 50 mg STK-MED ONCE IV ; Start 02/11/19 at 11:01; Stop 02/11/19 at 11:02; Status DC Morphine Sulfate (Morphine Sulfate) 2 mg STK-MED ONCE .ROUTE ; Start 02/11/19 at 11:36; Stop 02/11/19 at 11:37; Status DC Fentanyl Citrate (Fentanyl 2ml Vial) 100 mcg STK-MED ONCE .ROUTE ; Start 02/11/19 at 11:43; Stop 02/11/19 at 11:44; Status DC Hydromorphone HCl (Dilaudid) 2 mg STK-MED ONCE .ROUTE ; Start 02/11/19 at 11:56; Stop 02/11/19 at 11:57; Status DC Active Scripts Active Clopidogrel (Clopidogrel Bisulfate) 75 Mg Tablet 75 Mg PO DAILYWBKFT Reported Roxicodone (Oxycodone Hcl) 30 Mg Tablet 20 Mg PO TID PRN PRN Fluvoxamine Maleate 100 Mg Tablet 1 Tab PO QHS Vancomycin 1.5 Gram/250 ml-D5w (Vancomycin HCl/D5w) 1.5 Gm/250 Ml Plast..bag 1.5 Gm IV Q12HR Zocor (Simvastatin) 40 Mg Tablet 1 Tab PO QHS Piperacil-Tazobact 3.375 Gm Vl (Piperacillin Sodium/Tazobactam) 3.375 Gm Vial 3.375 Gm IV Q6HRS Protonix (Pantoprazole Sodium) 40 Mg Tablet.dr 40 Mg PO QODAY@0730 [place] 3 Fish Oil Softgel ([place]-3 Fatty Acids/Fish Oil) 1 Each Capsule.dr 1 Each PO DAILY Mupirocin Ointment (Mupirocin) 22 Gm Oint...g. 1 Celia TP BID Metoprolol Tartrate 25 Mg Tablet 1 Tab PO BID Magnesium Oxide 400 Mg Tablet 1 Tab PO DAILY Cozaar (Losartan Potassium) 100 Mg Tablet 50 Mg PO BID Culturelle (Lactobacillus Rhamnosus Gg) 1 Each Cap.sprink 1 Each PO BID Gabapentin (Gabapentin) 300 Mg Capsule 300 Mg PO BID Nephro-Sy Tablet (Folic Acid/Vitamin B Comp W-C) 0.8 Mg Tablet 1 Tab PO DAILY Plavix (Clopidogrel Bisulfate) 75 Mg Tablet 75 Mg PO DAILY Acetaminophen 500 Mg Tablet 500 Mg PO PRN PRN Folic Acid 1 Mg Tablet 1 Tab PO DAILY Magnesium (Magnesium Oxide) 400 Mg Capsule 1 Cap PO DAILY Aspir-Low (Aspirin) 81 Mg Tablet. 1 Tab PO DAILY Amlodipine Besylate 5 Mg Tablet 5 Mg PO DAILY Diclofenac Sodium 75 Mg Tablet. 1 Tab PO DAILY Gabapentin (Gabapentin) 300 Mg Capsule 300 Mg PO TID PRN Chlorthalidone (Chlorthalidone) 25 Mg Tablet 25 Mg PO DAILY Atorvastatin Calcium 40 Mg Tablet 1 Tab PO DAILY Fluvoxamine Maleate 100 Mg Tablet 1 Tab PO QHS Losartan Potassium 50 Mg Tablet 50 Mg PO BID [place]-3 Fish Oil 1,000 Mg Sfgl ([place]-3/Dha/Epa/Fish Oil) 1,000 Mg Capsule 4,000 Mg PO DAILY Hydrocodone-Apap 7.5-325 (Hydrocodone Bit/Acetaminophen) 1 Each Tablet 1 Tab PO QID PRN Multi-Vitamin Daily (Multivitamin) 1 Each Tablet 1 Each PO DAILY Coq-10 (Ubidecarenone) 100 Mg Capsule 100 Mg PO DAILY Metoprolol Tartrate 25 Mg Tablet 25 Mg PO BID last dose this am Vitals/I & O Vital Sign - Last 24 Hours 02/12/19 02/12/19 02/12/19 02/12/19 09:27 09:27 09:28 11:00 Temp 98.2 98.2 Pulse 67 67 67 64 Resp 16 B/P (MAP) 162/82 162/82 162/82 155/64 (94) Pulse Ox 98 O2 Delivery Room Air 02/12/19 02/12/19 02/12/19 02/12/19 15:00 16:03 19:00 19:45 Temp 97.7 97.9 97.7 97.9 Pulse 59 57 Resp 16 16 B/P (MAP) 137/67 (90) 145/72 (96) Pulse Ox 97 92 O2 Delivery Room Air Room Air Room Air Room Air 02/12/19 02/12/19 02/12/19 02/13/19 21:05 21:06 23:00 00:14 Temp 97.5 97.5 Pulse 57 57 59 Resp 16 20 B/P (MAP) 145/72 145/72 153/77 (102) Pulse Ox 95 O2 Delivery Room Air Room Air 02/13/19 01:14 Resp 20 O2 Delivery Room Air Intake and Output 02/12/19 02/12/19 02/13/19 15:00 23:00 07:00 Intake Total 180 ml 240 ml Output Total 800 ml 500 ml Balance 180 ml -560 ml -500 ml JAMES MARKS MD Feb 13, 2019 08:42
[2019-02-13] MEDS: MUPIROCIN 2 % NASAL OINTMENT 22GM TUBE. TP SCH ×2 (09:00→21:41)
[2019-02-13] MEDS: OMEGA-3 FATTY ACIDS/FISH OIL 1,000 MG CAPSULE. PO SCH (09:07)
[2019-02-13] MEDS: LACTOBACILLUS RHAMNOSUS GG 1 CAPSULE. PO SCH ×2 (09:07→21:35)
[2019-02-13] MEDS: ASPIRIN ENTERIC COATED 81 MG TABLET.DR. PO SCH (09:07)
[2019-02-13] MEDS: MULTIVITAMIN with MINERAL TABLET. PO SCH (09:07)
[2019-02-13] MEDS: amLODIPine BESYLATE 5 MG TABLET PO SCH (09:08)
[2019-02-13] MEDS: FOLIC/VIT B COMP W-C (RENAL) TABLET. PO SCH (09:08)
[2019-02-13] MEDS: MAGNESIUM OXIDE 400 MG TABLET PO SCH (09:09)
[2019-02-13] MEDS: FOLIC ACID 1 MG TABLET. PO SCH (09:09)
[2019-02-13] MEDS: CHLORTHALIDONE 25 MG TABLET. PO SCH (09:09)
[2019-02-13] MEDS: METOPROLOL TART IMMED RELEASE 25 MG TABLET. PO SCH ×2 (09:09→21:38)
[2019-02-13] MEDS: GABAPENTIN 300 MG CAPSULE. PO SCH ×2 (09:09→21:35)
--- NOTE | 2019-02-13 09:29 | PDOC ---
ORTH[facility] PROGRESS NOTES Subjective He feels like his pain is a little bit better. He has questions about his post hospital care Vitals Vital Signs Date Time Temp Pulse Resp B/P (MAP) Pulse Ox O2 Delivery O2 Flow Rate FiO2 02/13/19 09:10 60 156/76 02/13/19 07:00 97.9 20 96 Room Air 97.9 Labs Laboratory Tests Test 02/12/19 06:15 02/13/19 03:48 White Blood Count 8.3 x10^3/uL (4.0-11.0) 7.5 x10^3/uL (4.0-11.0) Red Blood Count 3.17 x10^6/uL (4.30-5.70) 3.25 x10^6/uL (4.30-5.70) Hemoglobin 10.8 g/dL (13.0-17.5) 11.0 g/dL (13.0-17.5) Hematocrit 31.6 % (39.0-53.0) 32.6 % (39.0-53.0) Mean Corpuscular Volume 100 fL (79-100) 100 fL (79-100) Mean Corpuscular Hemoglobin 34 pg (25-35) 34 pg (25-35) Mean Corpuscular Hemoglobin Concent 34 g/dL (31-37) 34 g/dL (31-37) Red Cell Distribution Width 15.5 % (11.5-14.5) 15.4 % (11.5-14.5) Platelet Count 222 x10^3/uL (140-400) 245 x10^3/uL (140-400) Neutrophils (%) (Auto) 75 % (31-73) 57 % (31-73) Lymphocytes (%) (Auto) 13 % (24-48) 25 % (24-48) Monocytes (%) (Auto) 11 % (0-9) 14 % (0-9) Eosinophils (%) (Auto) 0 % (0-3) 3 % (0-3) Basophils (%) (Auto) 0 % (0-3) 1 % (0-3) Neutrophils # (Auto) 6.2 x10^3/uL (1.8-7.7) 4.3 x10^3/uL (1.8-7.7) Lymphocytes # (Auto) 1.1 x10^3/uL (1.0-4.8) 1.9 x10^3/uL (1.0-4.8) Monocytes # (Auto) 0.9 x10^3/uL (0.0-1.1) 1.1 x10^3/uL (0.0-1.1) Eosinophils # (Auto) 0.0 x10^3/uL (0.0-0.7) 0.2 x10^3/uL (0.0-0.7) Basophils # (Auto) 0.0 x10^3/uL (0.0-0.2) 0.0 x10^3/uL (0.0-0.2) Sodium Level 142 mmol/L (136-145) 144 mmol/L (136-145) Potassium Level 4.3 mmol/L (3.5-5.1) 5.5 mmol/L (3.5-5.1) Chloride Level 105 mmol/L (98-107) 106 mmol/L (98-107) Carbon Dioxide Level 28 mmol/L (21-32) 32 mmol/L (21-32) Anion Gap 9 (6-14) 6 (6-14) Blood Urea Nitrogen 15 mg/dL (8-26) 20 mg/dL (8-26) Creatinine 1.2 mg/dL (0.7-1.3) 1.4 mg/dL (0.7-1.3) Estimated GFR (Cockcroft-Gault) 61.0 51.0 Glucose Level 106 mg/dL (70-99) 106 mg/dL (70-99) Calcium Level 9.3 mg/dL (8.5-10.1) 9.7 mg/dL (8.5-10.1) Laboratory Tests Test 02/13/19 03:48 White Blood Count 7.5 x10^3/uL (4.0-11.0) Red Blood Count 3.25 x10^6/uL (4.30-5.70) Hemoglobin 11.0 g/dL (13.0-17.5) Hematocrit 32.6 % (39.0-53.0) Mean Corpuscular Volume 100 fL (79-100) Mean Corpuscular Hemoglobin 34 pg (25-35) Mean Corpuscular Hemoglobin Concent 34 g/dL (31-37) Red Cell Distribution Width 15.4 % (11.5-14.5) Platelet Count 245 x10^3/uL (140-400) Neutrophils (%) (Auto) 57 % (31-73) Lymphocytes (%) (Auto) 25 % (24-48) Monocytes (%) (Auto) 14 % (0-9) Eosinophils (%) (Auto) 3 % (0-3) Basophils (%) (Auto) 1 % (0-3) Neutrophils # (Auto) 4.3 x10^3/uL (1.8-7.7) Lymphocytes # (Auto) 1.9 x10^3/uL (1.0-4.8) Monocytes # (Auto) 1.1 x10^3/uL (0.0-1.1) Eosinophils # (Auto) 0.2 x10^3/uL (0.0-0.7) Basophils # (Auto) 0.0 x10^3/uL (0.0-0.2) Sodium Level 144 mmol/L (136-145) Potassium Level 5.5 mmol/L (3.5-5.1) Chloride Level 106 mmol/L (98-107) Carbon Dioxide Level 32 mmol/L (21-32) Anion Gap 6 (6-14) Blood Urea Nitrogen 20 mg/dL (8-26) Creatinine 1.4 mg/dL (0.7-1.3) Estimated GFR (Cockcroft-Gault) 51.0 Glucose Level 106 mg/dL (70-99) Calcium Level 9.7 mg/dL (8.5-10.1) Notes He is awake and alert. He has less edema in his foot, erythema little bit better. Wound VAC is in place with a good seal Assessment and Plan Wound care for VAC changes. Appreciate infectious disease antibiotic recommendations. We will follow up with the cultures. He can weight-bear through his heel with a platform shoe WILMER JIMENEZ II, MD Feb 13, 2019 09:29
[2019-02-13 11:00] VITALS: BP 189/66
--- NOTE | 2019-02-13 11:09 | PDOC ---
Infectious Disease Note Subjective Subjective Doing good Comfortable, less pain Denies F/C/S/N/V/D Urinating well ROS ROS per HPI Vital Sign Vital Signs Vital Signs Date Time Temp Pulse Resp B/P (MAP) Pulse Ox O2 Delivery O2 Flow Rate FiO2 02/13/19 09:10 60 156/76 02/13/19 07:00 97.9 20 96 Room Air 97.9 Physical Exam PHYSICAL EXAM GENERAL: Sitting in the chair, alert, NAD HEENT: Pupils equally round and reactive. Normal conjunctivae. Oropharynx clear. NECK: Supple. LUNGS: Clear to auscultation. HEART: S1, S2. ABDOMEN: Obese, soft, and nontender with bowel sounds present. EXTREMITIES: No gross edema or cyanosis. Left foot is mildly swollen, red, and warm with a wound VAC in place. but skin is wrinkling Distal pulses palpable. SKIN: Warm to touch. No signs of rash. Multiple tattoos. NEUROLOGIC: Alert and oriented x 3. E-PICC clean Labs Lab Laboratory Tests Test 02/13/19 03:48 White Blood Count 7.5 x10^3/uL (4.0-11.0) Red Blood Count 3.25 x10^6/uL (4.30-5.70) Hemoglobin 11.0 g/dL (13.0-17.5) Hematocrit 32.6 % (39.0-53.0) Mean Corpuscular Volume 100 fL (79-100) Mean Corpuscular Hemoglobin 34 pg (25-35) Mean Corpuscular Hemoglobin Concent 34 g/dL (31-37) Red Cell Distribution Width 15.4 % (11.5-14.5) Platelet Count 245 x10^3/uL (140-400) Neutrophils (%) (Auto) 57 % (31-73) Lymphocytes (%) (Auto) 25 % (24-48) Monocytes (%) (Auto) 14 % (0-9) Eosinophils (%) (Auto) 3 % (0-3) Basophils (%) (Auto) 1 % (0-3) Neutrophils # (Auto) 4.3 x10^3/uL (1.8-7.7) Lymphocytes # (Auto) 1.9 x10^3/uL (1.0-4.8) Monocytes # (Auto) 1.1 x10^3/uL (0.0-1.1) Eosinophils # (Auto) 0.2 x10^3/uL (0.0-0.7) Basophils # (Auto) 0.0 x10^3/uL (0.0-0.2) Sodium Level 144 mmol/L (136-145) Potassium Level 5.5 mmol/L (3.5-5.1) Chloride Level 106 mmol/L (98-107) Carbon Dioxide Level 32 mmol/L (21-32) Anion Gap 6 (6-14) Blood Urea Nitrogen 20 mg/dL (8-26) Creatinine 1.4 mg/dL (0.7-1.3) Estimated GFR (Cockcroft-Gault) 51.0 Glucose Level 106 mg/dL (70-99) Calcium Level 9.7 mg/dL (8.5-10.1) Micro [facility] AEROBIC RES 1 Final Methicillin - resistant Staphylococcus aureus 1-2 colonies . MICS are expressed in micrograms per mL Antibiotic RSLT#1 Ciprofloxacin S<=0.5 Clindamycin S<=0.25 Erythromycin R>=8 Gentamicin S<=0.5 Levofloxacin S =0.25 Linezolid S =2 Oxacillin R>=4 Penicillin R>=0.5 Rifampin S<=0.5 Tetracycline S<=1 Trimethoprim/Sulfa S<=10 Vancomycin S =1 Objective Assessment Right great toe infection and cellulitis of forefoot s/p debridement and removal of foreign body, 02/11 -s/p bedside debridement, 02/08 ([facility]). + MRSA Peripheral neuropathy Hypertension h/o MRSA Obesity Plan Plan of Care D/c Vanc for today with CYNDI and elvated level and d/c Zosyn with MRSA He is requesting a renal eval as he has seen Dr. 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 The chart was reviewed. The case was discussed. Agree with the plan of care. MARY FOLEY APRN Feb 13, 2019 11:09 DILLON YUSUF MD Feb 13, 2019 13:42
--- NOTE | 2019-02-13 12:32 | NUR ---
SS following for discharge planning. Nurse navigator met with pt to discuss home healthcare. Pt reported that he was currently on services with [facility], ; fax [phone]. SS will continue to follow for discharge planning.
[2019-02-13 12:35] LABS: VANC TR 27.9 mcg/mL (10.0-20.0)
[2019-02-13 15:00] VITALS: BP 179/78
[2019-02-13 19:00] VITALS: BP 142/54
[2019-02-13] MEDS: ATORVASTATIN CALCIUM 40 MG TABLET. PO SCH (21:35)
[2019-02-13 23:00] VITALS: BP 179/63
[2019-02-14 03:00] VITALS: BP 144/71
[2019-02-14 07:00] VITALS: BP 162/71
[2019-02-14 08:33] LABS: BASO # 0.1 x10^3/uL (0.0-0.2); BASO % 1 % (0-3); EOS # 0.3 x10^3/uL (0.0-0.7); EOS % 4 % (0-3); HEMOGLOBIN 13.2 g/dL (13.0-17.5); LYMPH # 1.6 x10^3/uL (1.0-4.8); LYMPH % 19 % (24-48); MEAN CORPUSCULAR HEMOGLOBIN 34 pg (25-35); MEAN CORPUSCULAR HGB CONC 34 g/dL (31-37); MEAN CORPUSCULAR VOLUME 99 fL (79-100); MONO # 0.8 x10^3/uL (0.0-1.1); MONO % 10 % (0-9); NEUT # 5.5 x10^3/uL (1.8-7.7); NEUT % 66 % (31-73); PLATELET COUNT 365 x10^3/uL (140-400); RED BLOOD COUNT 3.93 x10^6/uL (4.30-5.70); RED CELL DISTRIBUTION WIDTH 15.5 % (11.5-14.5); WHITE BLOOD COUNT 8.3 x10^3/uL (4.0-11.0)
[2019-02-14] MEDS: MAGNESIUM OXIDE 400 MG TABLET PO SCH (08:48)
[2019-02-14] MEDS: GABAPENTIN 300 MG CAPSULE. PO SCH ×2 (08:48→22:07)
[2019-02-14] MEDS: LACTOBACILLUS RHAMNOSUS GG 1 CAPSULE. PO SCH ×2 (08:48→22:07)
[2019-02-14] MEDS: CLOPIDOGREL BISULFATE 75 MG TABLET PO SCH (08:48)
[2019-02-14] MEDS: FOLIC ACID 1 MG TABLET. PO SCH (08:48)
[2019-02-14] MEDS: ASPIRIN ENTERIC COATED 81 MG TABLET.DR. PO SCH (08:48)
[2019-02-14] MEDS: MULTIVITAMIN with MINERAL TABLET. PO SCH (08:48)
[2019-02-14] MEDS: CHLORTHALIDONE 25 MG TABLET. PO SCH (08:49)
[2019-02-14] MEDS: METOPROLOL TART IMMED RELEASE 25 MG TABLET. PO SCH ×2 (08:49→22:08)
[2019-02-14] MEDS: FOLIC/VIT B COMP W-C (RENAL) TABLET. PO SCH (08:49)
[2019-02-14] MEDS: OMEGA-3 FATTY ACIDS/FISH OIL 1,000 MG CAPSULE. PO SCH (08:49)
[2019-02-14] MEDS: amLODIPine BESYLATE 5 MG TABLET PO SCH (08:50)
[2019-02-14] MEDS: MUPIROCIN 2 % NASAL OINTMENT 22GM TUBE. TP SCH ×2 (08:50→22:10)
[2019-02-14 08:52] LABS: CALCIUM 10.7 mg/dL (8.5-10.1); CREATININE 1.3 mg/dL (0.7-1.3); GFR 55.6
[2019-02-14] MEDS: HYDROcodone/APAP 7.5/325MG 1 TAB TABLET PO PRN (08:52)
--- NOTE | 2019-02-14 09:17 | PDOC ---
ORTHO PROGRESS NOTES Subjective Foot pain unchanged, no new complaints Vitals Vital Signs Date Time Temp Pulse Resp B/P (MAP) Pulse Ox O2 Delivery O2 Flow Rate FiO2 02/14/19 08:52 Room Air 02/14/19 08:52 52 162/71 02/14/19 07:00 97.9 16 96 97.9 Labs Laboratory Tests Test 02/13/19 03:48 02/13/19 11:50 02/14/19 07:15 White Blood Count 7.5 x10^3/uL (4.0-11.0) 8.3 x10^3/uL (4.0-11.0) Red Blood Count 3.25 x10^6/uL (4.30-5.70) 3.93 x10^6/uL (4.30-5.70) Hemoglobin 11.0 g/dL (13.0-17.5) 13.2 g/dL (13.0-17.5) Hematocrit 32.6 % (39.0-53.0) 39.0 % (39.0-53.0) Mean Corpuscular Volume 100 fL (79-100) 99 fL (79-100) Mean Corpuscular Hemoglobin 34 pg (25-35) 34 pg (25-35) Mean Corpuscular Hemoglobin Concent 34 g/dL (31-37) 34 g/dL (31-37) Red Cell Distribution Width 15.4 % (11.5-14.5) 15.5 % (11.5-14.5) Platelet Count 245 x10^3/uL (140-400) 365 x10^3/uL (140-400) Neutrophils (%) (Auto) 57 % (31-73) 66 % (31-73) Lymphocytes (%) (Auto) 25 % (24-48) 19 % (24-48) Monocytes (%) (Auto) 14 % (0-9) 10 % (0-9) Eosinophils (%) (Auto) 3 % (0-3) 4 % (0-3) Basophils (%) (Auto) 1 % (0-3) 1 % (0-3) Neutrophils # (Auto) 4.3 x10^3/uL (1.8-7.7) 5.5 x10^3/uL (1.8-7.7) Lymphocytes # (Auto) 1.9 x10^3/uL (1.0-4.8) 1.6 x10^3/uL (1.0-4.8) Monocytes # (Auto) 1.1 x10^3/uL (0.0-1.1) 0.8 x10^3/uL (0.0-1.1) Eosinophils # (Auto) 0.2 x10^3/uL (0.0-0.7) 0.3 x10^3/uL (0.0-0.7) Basophils # (Auto) 0.0 x10^3/uL (0.0-0.2) 0.1 x10^3/uL (0.0-0.2) Sodium Level 144 mmol/L (136-145) 142 mmol/L (136-145) Potassium Level 5.5 mmol/L (3.5-5.1) 4.0 mmol/L (3.5-5.1) Chloride Level 106 mmol/L (98-107) 101 mmol/L (98-107) Carbon Dioxide Level 32 mmol/L (21-32) 30 mmol/L (21-32) Anion Gap 6 (6-14) 11 (6-14) Blood Urea Nitrogen 20 mg/dL (8-26) 21 mg/dL (8-26) Creatinine 1.4 mg/dL (0.7-1.3) 1.3 mg/dL (0.7-1.3) Estimated GFR (Cockcroft-Gault) 51.0 55.6 Glucose Level 106 mg/dL (70-99) 95 mg/dL (70-99) Calcium Level 9.7 mg/dL (8.5-10.1) 10.7 mg/dL (8.5-10.1) Vancomycin Level Trough 27.9 mcg/mL (10.0-20.0) Vancomycin Last Dose Date 02/13/19 Vancomycin Last Dose Time 003 Laboratory Tests Test 02/13/19 11:50 02/14/19 07:15 Vancomycin Level Trough 27.9 mcg/mL (10.0-20.0) Vancomycin Last Dose Date 02/13/19 Vancomycin Last Dose Time 0030 White Blood Count 8.3 x10^3/uL (4.0-11.0) Red Blood Count 3.93 x10^6/uL (4.30-5.70) Hemoglobin 13.2 g/dL (13.0-17.5) Hematocrit 39.0 % (39.0-53.0) Mean Corpuscular Volume 99 fL (79-100) Mean Corpuscular Hemoglobin 34 pg (25-35) Mean Corpuscular Hemoglobin Concent 34 g/dL (31-37) Red Cell Distribution Width 15.5 % (11.5-14.5) Platelet Count 365 x10^3/uL (140-400) Neutrophils (%) (Auto) 66 % (31-73) Lymphocytes (%) (Auto) 19 % (24-48) Monocytes (%) (Auto) 10 % (0-9) Eosinophils (%) (Auto) 4 % (0-3) Basophils (%) (Auto) 1 % (0-3) Neutrophils # (Auto) 5.5 x10^3/uL (1.8-7.7) Lymphocytes # (Auto) 1.6 x10^3/uL (1.0-4.8) Monocytes # (Auto) 0.8 x10^3/uL (0.0-1.1) Eosinophils # (Auto) 0.3 x10^3/uL (0.0-0.7) Basophils # (Auto) 0.1 x10^3/uL (0.0-0.2) Sodium Level 142 mmol/L (136-145) Potassium Level 4.0 mmol/L (3.5-5.1) Chloride Level 101 mmol/L (98-107) Carbon Dioxide Level 30 mmol/L (21-32) Anion Gap 11 (6-14) Blood Urea Nitrogen 21 mg/dL (8-26) Creatinine 1.3 mg/dL (0.7-1.3) Estimated GFR (Cockcroft-Gault) 55.6 Glucose Level 95 mg/dL (70-99) Calcium Level 10.7 mg/dL (8.5-10.1) Notes A and A in bed RLE: VAC in place, erythema present, edema improved Assessment and Plan ID for abx, Cx Pending wound care for VAC changes WILMER JIMENEZ II, MD Feb 14, 2019 09:17
--- NOTE | 2019-02-14 10:46 | PDOC2 ---
CONSULT Date of Consult Date of Consult DATE: 02/14/19 TIME: 10:41 Reason for Consult Reason for Consult: CYNDI Source Source: Chart review, Patient History of Present Illness Reason for Visit: Pt is a 63-year-old CM with a history of chronic back pain with peripheral neuropathy of lower extremities. Presented with c/o right foot pain, swelling, and streaking redness after he was in his garage barefooted. He was seen by his primary care provider Dr. Meyers and admitted to [facility] in [place]. An x-ray showed no acute fracture. He had a blister that was debrided down to the dermis on 02/08/2019 ,he was started on vancomycin via a PICC and transferred to [facility] He underwent irrigation, debridement, and removal of a foreign body along with a wound VAC placement He reports pain is much better. Denies any CP or SOB, No urinary complaints . He states approx 4-5 yrs back he saw Dr. 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 He reports he changed his diet and his kidney function improved . He denies any NSAID's or any OTC products(inpt Med list shows Diclofenac) . He reports he has been on Chlorthalidone for approx 3-4 months for HTN - BP used to be 170's systolic Past Medical History Cardiovascular: HTN, Hyperlipidemia Pulmonary: Other CENTRAL NERVOUS SYSTEM: CVA Psych: Anxiety, Addictions, Depression, Other Musculoskeletal: low back pain, Osteoarthritis Rheumatologic: Fibromyalgia Infectious disease: Other Renal/: Chronic renal failure, Other Past Surgical History Past Surgical History: Cholecystectomy, Total knee replacement, Other Family History Family History: Hypertension Social History ALCOHOL: heavy Drugs: None Lives: with Family Domestic Violence: Neg Current Medications Current Medications Current Medications Potassium Chloride (Klor-Con) 20 meq 1X ONCE PO ; Start 02/09/19 at 16:30; Stop 02/09/19 at 16:30; Status DC Atorvastatin Calcium (Lipitor) 40 mg QHS PO Last administered on 02/13/19at 21:43; Start 02/09/19 at 21:00 Vitamin B Complex/ Vitamin C (Yvonne-Sy) 1 tab DAILY PO Last administered on 02/14/19at 08:52; Start 02/10/19 at 09:00 Gabapentin (Neurontin) 300 mg BID PO Last administered on 02/14/19at 08:52; Start 02/09/19 at 21:00 Lactobacillus Rhamnosus (Culturelle) 1 cap BID PO Last administered on 02/14/19 08:52; Start 02/09/19 at 21:00 Losartan Potassium (Cozaar) 50 mg BID PO Last administered on 02/12/19 21:05; Start 02/09/19 at 21:00; Status Hold Metoprolol Tartrate (Lopressor) 25 mg BID PO Last administered on 02/14/19 08:52; Start 02/09/19 at 21:00 Mupirocin (Bactroban) 1 celia BID TP Last administered on 02/14/19 08:52; Start 02/09/19 at 21:00 Oxycodone HCl (Roxicodone) 20 mg PRN TID PRN PO SEVERE PAIN Last administered on 02/13/19 23:17; Start 02/09/19 at 18:15 Pantoprazole Sodium (Protonix) 40 mg QODAY@0730 PO Last administered on 02/13/19 09:10; Start 02/11/19 at 07:30 Acetaminophen (Tylenol) 500 mg PRN Q6HRS PRN PO Fever > 101.5; Start 02/09/19 at 18:15 Fluvoxamine Maleate (Luvox) 100 mg QHS PO Last administered on 02/13/19 21:43; Start 02/09/19 at 21:00 Magnesium Oxide (Magnesium Oxide) 400 mg DAILY PO Last administered on 02/14/19 08:52; Start 02/10/19 at 09:00 Multivitamins (Thera M Plus) 1 tab DAILY PO Last administered on 02/14/19 08:52; Start 02/10/19 at 09:00 Fish Oil (Fish Oil) 4,000 mg DAILY PO Last administered on 02/14/19 08:52; Start 02/10/19 at 09:00 Non-Formulary Medication (Piperacillin Sodium/Tazobactam (Piperacil-Tazobact 3.375 Gm Vl)) 3.375 gm Q6HRS IV ; Start 02/10/19 at 00:00; Status UNV Non-Formulary Medication (Vancomycin HCl/ D5w (Vancomycin 1.5 Gram/250 ml-D5w)) 1.5 gm Q12HR IV ; Start 02/09/19 at 21:00; Status UNV Vancomycin HCl 1.5 gm/Sodium Chloride 500 ml @ 250 mls/hr Q12H IV Last administered on 02/13/19 00:10; Start 02/10/19 at 00:00; Stop 02/13/19 at 13:42; Status DC Piperacillin Sod/ Tazobactam Sod 3.375 gm/Sodium Chloride 50 ml @ 100 mls/hr Q6HRS IV Last administered on 02/13/19 12:26; Start 02/09/19 at 18:30; Stop 02/13/19 at 13:42; Status DC Amlodipine Besylate (Norvasc) 5 mg DAILY PO Last administered on 02/14/19 08:52; Start 02/10/19 at 09:00 Aspirin (Ecotrin) 81 mg DAILY PO Last administered on 02/10/19 09:03; Start 02/10/19 at 09:00; Stop 02/10/19 at 11:37; Status DC Chlorthalidone (Thalitone) 25 mg DAILY PO Last administered on 02/14/19 08:52; Start 02/10/19 at 09:00 Clopidogrel Bisulfate (Plavix) 75 mg DAILYWBKFT PO ; Start 02/10/19 at 08:00; Stop 02/10/19 at 11:37; Status DC Clopidogrel Bisulfate (Plavix) 75 mg DAILY PO ; Start 02/10/19 at 09:00; Status UNV Folic Acid (Folic Acid) 1 mg DAILY PO Last administered on 02/14/19 08:52; Start 02/10/19 at 09:00 Gabapentin (Neurontin) 300 mg TID PRN PO tid; Start 02/09/19 at 19:45; Status UNV Acetaminophen/ Hydrocodone Bitart (Lortab 7.5/325) 1 tab PRN QID PRN PO MODERATE PAIN Last administered on 02/14/19 08:52; Start 02/09/19 at 19:45 Metoprolol Tartrate (Lopressor) 25 mg BID PO ; Start 02/09/19 at 21:00; Status UNV Diclofenac Sodium (Voltaren) 75 mg DAILY PO Last administered on 02/12/19 09:28; Start 02/10/19 at 09:00; Stop 02/13/19 at 08:41; Status DC Non-Formulary Medication (Fluvoxamine Maleate ) 1 tab QHS PO ; Start 02/09/19 at 21:00; Status UNV Non-Formulary Medication (Losartan Potassium (Cozaar)) 50 mg BID PO ; Start 02/09/19 at 21:00; Status UNV Non-Formulary Medication (Magnesium Oxide (Magnesium)) 1 cap DAILY PO ; Start 02/10/19 at 09:00; Status UNV Non-Formulary Medication ([place]-3/Dha/Epa/ Fish Oil ([place]-3 Fish Oil 1,000 Mg Sfgl)) 4,000 mg DAILY PO ; Start 02/10/19 at 09:00; Status UNV Non-Formulary Medication (Simvastatin (Zocor)) 1 tab QHS PO ; Start 02/09/19 at 21:00; Status UNV Non-Formulary Medication (Ubidecarenone (Coq-10)) 100 mg DAILY PO ; Start at 09:00; Status UNV Vancomycin HCl (Vanco Per Pharmacy) 1 each PRN DAILY PRN MC SEE COMMENTS Last administered on 02/10/19at 10:30; Start 02/09/19 at 21:30; Stop 02/13/19 at 13:42; Status DC Clopidogrel Bisulfate (Plavix) 75 mg DAILYWBKFT PO Last administered on 02/14/19at 08:52; Start 02/13/19 at 08:00 Aspirin (Ecotrin) 81 mg DAILY PO Last administered on 02/14/19at 08:52; Start 02/13/19 at 09:00 Dextrose (Dextrose 50%-Water Syringe) 12.5 gm PRN Q15MIN PRN IV SEE COMMENTS; Start 02/10/19 at 11:45; Stop 02/10/19 at 11:50; Status DC Dextrose 250 ml PRN Q15MIN PRN IV SEE COMMENTS; Start 02/10/19 at 11:45; Stop 02/10/19 at 11:50; Status DC Propofol 20 ml @ As Directed STK-MED ONCE IV ; Start 02/11/19 at 07:34; Stop 02/11/19 at 07:35; Status DC Lidocaine HCl (Lidocaine Pf 2% Vial) 5 ml STK-MED ONCE .ROUTE ; Start 02/11/19 at 07:34; Stop 02/11/19 at 07:35; Status DC Dexamethasone Sodium Phosphate (Decadron) 4 mg STK-MED ONCE .ROUTE ; Start 02/11/19 at 07:34; Stop 02/11/19 at 07:35; Status DC Ondansetron HCl (Zofran) 4 mg STK-MED ONCE .ROUTE ; Start 02/11/19 at 07:34; Stop 02/11/19 at 07:35; Status DC Ondansetron HCl (Zofran) 4 mg PRN Q6HRS PRN IV NAUSEA/VOMITING; Start 02/11/19 at 10:15; Stop 02/11/19 at 14:23; Status DC Fentanyl Citrate (Fentanyl 2ml Vial) 25 mcg PRN Q5MIN PRN IV MILD PAIN 1-3; Start 02/11/19 at 10:15; Stop 02/11/19 at 14:23; Status DC Fentanyl Citrate (Fentanyl 2ml Vial) 50 mcg PRN Q5MIN PRN IV MODERATE TO SEVERE PAIN Last administered on 02/11/19at 11:54; Start 02/11/19 at 10:15; Stop 02/11/19 at 14:23; Status DC Morphine Sulfate (Morphine Sulfate) 1 mg PRN Q10MIN PRN IV SEVERE PAIN 7-10 Last administered on 02/11/19at 11:53; Start 02/11/19 at 10:15; Stop 02/11/19 at 14:23; Status DC Ringer's Solution 1,000 ml @ 30 mls/hr Q24H IV ; Start 02/11/19 at 10:30; Stop 02/11/19 at 14:23; Status DC Lidocaine HCl (Xylocaine-Mpf 1% 2ml Vial) 2 ml PRN 1X PRN ID PRIOR TO IV START; Start 02/11/19 at 10:15; Stop 02/11/19 at 14:23; Status DC Hydromorphone HCl (Dilaudid) 0.5 mg PRN Q10MIN PRN IV SEV PAIN, Second choice Last administered on 02/11/19at 11:59; Start 02/11/19 at 10:15; Stop 02/11/19 at 14:23; Status DC Prochlorperazine Edisylate (Compazine) 5 mg PACU PRN PRN IV NAUSEA, MRX1; Start 02/11/19 at 10:15; Stop 02/11/19 at 14:24; Status DC Fentanyl Citrate (Fentanyl 2ml Vial) 100 mcg STK-MED ONCE .ROUTE ; Start 02/11/19 at 10:36; Stop 02/11/19 at 10:37; Status DC Ephedrine Sulfate (ePHEDrine PF IN SALINE SYRINGE) 50 mg STK-MED ONCE IV ; Start 02/11/19 at 11:01; Stop 02/11/19 at 11:02; Status DC Morphine Sulfate (Morphine Sulfate) 2 mg STK-MED ONCE .ROUTE ; Start 02/11/19 at 11:36; Stop 02/11/19 at 11:37; Status DC Fentanyl Citrate (Fentanyl 2ml Vial) 100 mcg STK-MED ONCE .ROUTE ; Start 02/11/19 at 11:43; Stop 02/11/19 at 11:44; Status DC Hydromorphone HCl (Dilaudid) 2 mg STK-MED ONCE .ROUTE ; Start 02/11/19 at 11:56; Stop 02/11/19 at 11:57; Status DC Active Scripts Active Clopidogrel (Clopidogrel Bisulfate) 75 Mg Tablet 75 Mg PO DAILYWBKFT Reported Roxicodone (Oxycodone Hcl) 30 Mg Tablet 20 Mg PO TID PRN PRN Fluvoxamine Maleate 100 Mg Tablet 1 Tab PO QHS Vancomycin 1.5 Gram/250 ml-D5w (Vancomycin HCl/D5w) 1.5 Gm/250 Ml Plast..bag 1.5 Gm IV Q12HR Zocor (Simvastatin) 40 Mg Tablet 1 Tab PO QHS Piperacil-Tazobact 3.375 Gm Vl (Piperacillin Sodium/Tazobactam) 3.375 Gm Vial 3.375 Gm IV Q6HRS Protonix (Pantoprazole Sodium) 40 Mg Tablet. 40 Mg PO QODAY@0730 [place] 3 Fish Oil Softgel ([place]-3 Fatty Acids/Fish Oil) 1 Each Capsule.dr 1 Each PO DAILY Mupirocin Ointment (Mupirocin) 22 Gm Oint...g. 1 Celia TP BID Metoprolol Tartrate 25 Mg Tablet 1 Tab PO BID Magnesium Oxide 400 Mg Tablet 1 Tab PO DAILY Cozaar (Losartan Potassium) 100 Mg Tablet 50 Mg PO BID Culturelle (Lactobacillus Rhamnosus Gg) 1 Each Cap.sprink 1 Each PO BID Gabapentin (Gabapentin) 300 Mg Capsule 300 Mg PO BID Nephro-Sy Tablet (Folic Acid/Vitamin B Comp W-C) 0.8 Mg Tablet 1 Tab PO DAILY Plavix (Clopidogrel Bisulfate) 75 Mg Tablet 75 Mg PO DAILY Acetaminophen 500 Mg Tablet 500 Mg PO PRN PRN Folic Acid 1 Mg Tablet 1 Tab PO DAILY Magnesium (Magnesium Oxide) 400 Mg Capsule 1 Cap PO DAILY Aspir-Low (Aspirin) 81 Mg Tablet.dr 1 Tab PO DAILY Amlodipine Besylate 5 Mg Tablet 5 Mg PO DAILY Diclofenac Sodium 75 Mg Tablet.dr 1 Tab PO DAILY Gabapentin (Gabapentin) 300 Mg Capsule 300 Mg PO TID PRN Chlorthalidone (Chlorthalidone) 25 Mg Tablet 25 Mg PO DAILY Atorvastatin Calcium 40 Mg Tablet 1 Tab PO DAILY Fluvoxamine Maleate 100 Mg Tablet 1 Tab PO QHS Losartan Potassium 50 Mg Tablet 50 Mg PO BID [place]-3 Fish Oil 1,000 Mg Sfgl ([place]-3/Dha/Epa/Fish Oil) 1,000 Mg Capsule 4,000 Mg PO DAILY Hydrocodone-Apap 7.5-325 (Hydrocodone Bit/Acetaminophen) 1 Each Tablet 1 Tab PO QID PRN Multi-Vitamin Daily (Multivitamin) 1 Each Tablet 1 Each PO DAILY Coq-10 (Ubidecarenone) 100 Mg Capsule 100 Mg PO DAILY Metoprolol Tartrate 25 Mg Tablet 25 Mg PO BID last dose this am Allergies Allergies: Coded Allergies: I S O L A T I O N *CONTACT* (Verified Allergy, Unknown, 02/12/19) mrsa No Known Medication Allergies (Verified Allergy, Unknown, 02/12/19) ROS Review of System Per HPI Physical Exam Physical Exam GENERAL: Propped up in bed, alert, NAD HEENT: Oropharynx clear. NECK: Supple. LUNGS: Clear to auscultation. HEART: S1, S2. ABDOMEN: Obese, soft, and nontender with bowel sounds present. EXTREMITIES: Rt LE edema 1+ , erythema , Lt LE trace edema SKIN: No rash. Multiple tattoos. NEUROLOGIC: Alert and oriented x 3. No Farooq Vital Signs Vital Signs Date Time Temp Pulse Resp B/P (MAP) Pulse Ox O2 Delivery O2 Flow Rate FiO2 02/14/19 08:52 Room Air 02/14/19 08:52 52 162/71 8/7/19 07:00 97.9 16 96 97.9 Assessment & Plan CYNDI - Pre-renal Holding ARB and NSAID Renal function improving , E-Lytes and acid base stable Supportive care. monitor Hyperkalemia- mild , resolved Hypercalcemia- mild Monitor R foot cellulitis with foreign body HTN- On chlorthalidone and Losartan CKD 2- Baseline 1.1-1.2 CYNDI in 2016 Discussed A/P with Pt and CYNDI - likely ATN/AIN, will hold morning dose of vancomycin, hold NSAIDs, hold ARB Hyperkalemia - hold losartan for today Labs Labs Laboratory Tests Test 02/13/19 03:48 02/13/19 11:50 02/14/19 07:15 White Blood Count 7.5 x10^3/uL (4.0-11.0) 8.3 x10^3/uL (4.0-11.0) Red Blood Count 3.25 x10^6/uL (4.30-5.70) 3.93 x10^6/uL (4.30-5.70) Hemoglobin 11.0 g/dL (13.0-17.5) 13.2 g/dL (13.0-17.5) Hematocrit 32.6 % (39.0-53.0) 39.0 % (39.0-53.0) Mean Corpuscular Volume 100 fL (79-100) 99 fL (79-100) Mean Corpuscular Hemoglobin 34 pg (25-35) 34 pg (25-35) Mean Corpuscular Hemoglobin Concent 34 g/dL (31-37) 34 g/dL (31-37) Red Cell Distribution Width 15.4 % (11.5-14.5) 15.5 % (11.5-14.5) Platelet Count 245 x10^3/uL (140-400) 365 x10^3/uL (140-400) Neutrophils (%) (Auto) 57 % (31-73) 66 % (31-73) Lymphocytes (%) (Auto) 25 % (24-48) 19 % (24-48) Monocytes (%) (Auto) 14 % (0-9) 10 % (0-9) Eosinophils (%) (Auto) 3 % (0-3) 4 % (0-3) Basophils (%) (Auto) 1 % (0-3) 1 % (0-3) Neutrophils # (Auto) 4.3 x10^3/uL (1.8-7.7) 5.5 x10^3/uL (1.8-7.7) Lymphocytes # (Auto) 1.9 x10^3/uL (1.0-4.8) 1.6 x10^3/uL (1.0-4.8) Monocytes # (Auto) 1.1 x10^3/uL (0.0-1.1) 0.8 x10^3/uL (0.0-1.1) Eosinophils # (Auto) 0.2 x10^3/uL (0.0-0.7) 0.3 x10^3/uL (0.0-0.7) Basophils # (Auto) 0.0 x10^3/uL (0.0-0.2) 0.1 x10^3/uL (0.0-0.2) Sodium Level 144 mmol/L (136-145) 142 mmol/L (136-145) Potassium Level 5.5 mmol/L (3.5-5.1) 4.0 mmol/L (3.5-5.1) Chloride Level 106 mmol/L (98-107) 101 mmol/L (98-107) Carbon Dioxide Level 32 mmol/L (21-32) 30 mmol/L (21-32) Anion Gap 6 (6-14) 11 (6-14) Blood Urea Nitrogen 20 mg/dL (8-26) 21 mg/dL (8-26) Creatinine 1.4 mg/dL (0.7-1.3) 1.3 mg/dL (0.7-1.3) Estimated GFR (Cockcroft-Gault) 51.0 55.6 Glucose Level 106 mg/dL (70-99) 95 mg/dL (70-99) Calcium Level 9.7 mg/dL (8.5-10.1) 10.7 mg/dL (8.5-10.1) Vancomycin Level Trough 27.9 mcg/mL (10.0-20.0) Vancomycin Last Dose Date 02/13/19 Vancomycin Last Dose Time 0030 Laboratory Tests Test 02/13/19 11:50 02/14/19 07:15 Vancomycin Level Trough 27.9 mcg/mL (10.0-20.0) Vancomycin Last Dose Date 02/13/19 Vancomycin Last Dose Time 0030 White Blood Count 8.3 x10^3/uL (4.0-11.0) Red Blood Count 3.93 x10^6/uL (4.30-5.70) Hemoglobin 13.2 g/dL (13.0-17.5) Hematocrit 39.0 % (39.0-53.0) Mean Corpuscular Volume 99 fL (79-100) Mean Corpuscular Hemoglobin 34 pg (25-35) Mean Corpuscular Hemoglobin Concent 34 g/dL (31-37) Red Cell Distribution Width 15.5 % (11.5-14.5) Platelet Count 365 x10^3/uL (140-400) Neutrophils (%) (Auto) 66 % (31-73) Lymphocytes (%) (Auto) 19 % (24-48) Monocytes (%) (Auto) 10 % (0-9) Eosinophils (%) (Auto) 4 % (0-3) Basophils (%) (Auto) 1 % (0-3) Neutrophils # (Auto) 5.5 x10^3/uL (1.8-7.7) Lymphocytes # (Auto) 1.6 x10^3/uL (1.0-4.8) Monocytes # (Auto) 0.8 x10^3/uL (0.0-1.1) Eosinophils # (Auto) 0.3 x10^3/uL (0.0-0.7) Basophils # (Auto) 0.1 x10^3/uL (0.0-0.2) Sodium Level 142 mmol/L (136-145) Potassium Level 4.0 mmol/L (3.5-5.1) Chloride Level 101 mmol/L (98-107) Carbon Dioxide Level 30 mmol/L (21-32) Anion Gap 11 (6-14) Blood Urea Nitrogen 21 mg/dL (8-26) Creatinine 1.3 mg/dL (0.7-1.3) Estimated GFR (Cockcroft-Gault) 55.6 Glucose Level 95 mg/dL (70-99) Calcium Level 10.7 mg/dL (8.5-10.1) Review All relevant outside records, renal labs, imaging studies, telemetry/EKG's were reviewed. SASCHA JIMÉNEZ MD Feb 14, 2019 10:46
[2019-02-14 11:00] VITALS: BP 133/66
[2019-02-14 11:00] LABS: % BANDS 4 % (0-9); % EOS 2 % (0-5); % LYMPHS 18 % (24-48); % MONOS 7 % (0-10); % SEGS 69 % (35-66); PLT ESTIMATE ADEQUATE (ADEQUATE)
--- NOTE | 2019-02-14 11:22 | NUR ---
SS following up with discharge planning. SS received notification that pt does not want [facility] and wants to switch to [facility] at discharge. SS met with pt to discuss discharge planning. Pt reported that he is not impressed with care from [facility] and would like to switch to [facility] and would like to return to home with home IV antibiotics and and wound vac. SS contacted [facility] and phoned and faxed face sheet to Vic at [facility], ; fax [phone]. SS requested that he check benefits and contact me with out of pocket costs that pt may incur with home infusions. Physician notified.
--- NOTE | 2019-02-14 11:44 | PDOC ---
PROGRESS NOTES Chief Complaint Chief Complaint R foot cellulitis with foreign body GERD Neuropathy Chronic pain HTN Hyperlipidemia TIA Cervical fusion h/o MRSA Obesity (BMI 31) CYNDI - likely ATN/AIN, will hold morning dose of vancomycin, hold NSAIDs, hold ARB Hyperkalemia - hold losartan for today History of Present Illness History of Present Illness Mr Madsen is a 63-year-old M w/ PMHx chronic pain, HTN, HLD, TIA who was transferred down from [facility] for failure of improvement after being on IV antibiotics for his great toe infection. It had been spreading to his forefoot. To OR for I&D and wound vac placement no 02/11/19 with orthopedic surgery. 02/13: K 5.5 and Cr 1.4, vanco held He is feeling much better today. Right foot with wound vac, elevated. Awaiting cultures from OR. 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 No CP or SOB. K and c reatine improved. No currently receiving any antibiotics, had vanco trough 27 yesterday Plan: D/w ID initial [place] culture positive for MRSA, still awaiting OR cultures from here. I have held vanco, losartan, mobic for CYNDI and hyperkalemia, will d/w ID zyvox vs daptomycin, etc Vitals Vitals Vital Signs Date Time Temp Pulse Resp B/P (MAP) Pulse Ox O2 Delivery O2 Flow Rate FiO2 02/14/19 11:00 97.9 62 16 133/66 (88) 94 Room Air 97.9 Physical Exam Physical Exam GENERAL: Sitting in the chair, alert, NAD HEENT: Pupils equally round and reactive. Normal conjunctivae. Oropharynx clear. NECK: Supple. LUNGS: Clear to auscultation. HEART: S1, S2. ABDOMEN: Obese, soft, and nontender with bowel sounds present. EXTREMITIES: No gross edema or cyanosis. Left foot is mildly swollen, red, and warm with a wound VAC in place. but skin is wrinkling Distal pulses palpable. SKIN: Warm to touch. No signs of rash. Multiple tattoos. NEUROLOGIC: Alert and oriented x 3. RUE-PICC clean General: Alert, Oriented X3, Cooperative Heart: Regular rate, No murmurs Lungs: Clear Abdomen: Normal bowel sounds, Soft, No tenderness Extremities: No edema, Normal pulses, Other (no edema in his lower extremities with the exception around his right great toe (wound vac currently placed)) Skin: No rashes, No breakdown Labs LABS Laboratory Tests Test 02/13/19 11:50 02/14/19 07:15 Vancomycin Level Trough 27.9 mcg/mL (10.0-20.0) Vancomycin Last Dose Date 02/13/19 Vancomycin Last Dose Time 0030 White Blood Count 8.3 x10^3/uL (4.0-11.0) Red Blood Count 3.93 x10^6/uL (4.30-5.70) Hemoglobin 13.2 g/dL (13.0-17.5) Hematocrit 39.0 % (39.0-53.0) Mean Corpuscular Volume 99 fL (79-100) Mean Corpuscular Hemoglobin 34 pg (25-35) Mean Corpuscular Hemoglobin Concent 34 g/dL (31-37) Red Cell Distribution Width 15.5 % (11.5-14.5) Platelet Count 365 x10^3/uL (140-400) Neutrophils (%) (Auto) 66 % (31-73) Lymphocytes (%) (Auto) 19 % (24-48) Monocytes (%) (Auto) 10 % (0-9) Eosinophils (%) (Auto) 4 % (0-3) Basophils (%) (Auto) 1 % (0-3) Neutrophils # (Auto) 5.5 x10^3/uL (1.8-7.7) Lymphocytes # (Auto) 1.6 x10^3/uL (1.0-4.8) Monocytes # (Auto) 0.8 x10^3/uL (0.0-1.1) Eosinophils # (Auto) 0.3 x10^3/uL (0.0-0.7) Basophils # (Auto) 0.1 x10^3/uL (0.0-0.2) Segmented Neutrophils % 69 % (35-66) Band Neutrophils % 4 % (0-9) Lymphocytes % 18 % (24-48) Monocytes % 7 % (0-10) Eosinophils % 2 % (0-5) Platelet Estimate Adequate (ADEQUATE) Sodium Level 142 mmol/L (136-145) Potassium Level 4.0 mmol/L (3.5-5.1) Chloride Level 101 mmol/L (98-107) Carbon Dioxide Level 30 mmol/L (21-32) Anion Gap 11 (6-14) Blood Urea Nitrogen 21 mg/dL (8-26) Creatinine 1.3 mg/dL (0.7-1.3) Estimated GFR (Cockcroft-Gault) 55.6 Glucose Level 95 mg/dL (70-99) Calcium Level 10.7 mg/dL (8.5-10.1) Comment Review of Relevant I have reviewed the following items jac (where applicable) has been applied. Labs Laboratory Tests Test 02/13/19 03:48 02/13/19 11:50 02/14/19 07:15 White Blood Count 7.5 x10^3/uL (4.0-11.0) 8.3 x10^3/uL (4.0-11.0) Red Blood Count 3.25 x10^6/uL (4.30-5.70) 3.93 x10^6/uL (4.30-5.70) Hemoglobin 11.0 g/dL (13.0-17.5) 13.2 g/dL (13.0-17.5) Hematocrit 32.6 % (39.0-53.0) 39.0 % (39.0-53.0) Mean Corpuscular Volume 100 fL (79-100) 99 fL (79-100) Mean Corpuscular Hemoglobin 34 pg (25-35) 34 pg (25-35) Mean Corpuscular Hemoglobin Concent 34 g/dL (31-37) 34 g/dL (31-37) Red Cell Distribution Width 15.4 % (11.5-14.5) 15.5 % (11.5-14.5) Platelet Count 245 x10^3/uL (140-400) 365 x10^3/uL (140-400) Neutrophils (%) (Auto) 57 % (31-73) 66 % (31-73) Lymphocytes (%) (Auto) 25 % (24-48) 19 % (24-48) Monocytes (%) (Auto) 14 % (0-9) 10 % (0-9) Eosinophils (%) (Auto) 3 % (0-3) 4 % (0-3) Basophils (%) (Auto) 1 % (0-3) 1 % (0-3) Neutrophils # (Auto) 4.3 x10^3/uL (1.8-7.7) 5.5 x10^3/uL (1.8-7.7) Lymphocytes # (Auto) 1.9 x10^3/uL (1.0-4.8) 1.6 x10^3/uL (1.0-4.8) Monocytes # (Auto) 1.1 x10^3/uL (0.0-1.1) 0.8 x10^3/uL (0.0-1.1) Eosinophils # (Auto) 0.2 x10^3/uL (0.0-0.7) 0.3 x10^3/uL (0.0-0.7) Basophils # (Auto) 0.0 x10^3/uL (0.0-0.2) 0.1 x10^3/uL (0.0-0.2) Sodium Level 144 mmol/L (136-145) 142 mmol/L (136-145) Potassium Level 5.5 mmol/L (3.5-5.1) 4.0 mmol/L (3.5-5.1) Chloride Level 106 mmol/L (98-107) 101 mmol/L (98-107) Carbon Dioxide Level 32 mmol/L (21-32) 30 mmol/L (21-32) Anion Gap 6 (6-14) 11 (6-14) Blood Urea Nitrogen 20 mg/dL (8-26) 21 mg/dL (8-26) Creatinine 1.4 mg/dL (0.7-1.3) 1.3 mg/dL (0.7-1.3) Estimated GFR (Cockcroft-Gault) 51.0 55.6 Glucose Level 106 mg/dL (70-99) 95 mg/dL (70-99) Calcium Level 9.7 mg/dL (8.5-10.1) 10.7 mg/dL (8.5-10.1) Vancomycin Level Trough 27.9 mcg/mL (10.0-20.0) Vancomycin Last Dose Date 02/13/19 Vancomycin Last Dose Time 0030 Segmented Neutrophils % 69 % (35-66) Band Neutrophils % 4 % (0-9) Lymphocytes % 18 % (24-48) Monocytes % 7 % (0-10) Eosinophils % 2 % (0-5) Platelet Estimate Adequate (ADEQUATE) Laboratory Tests Test 02/13/19 11:50 02/14/19 07:15 Vancomycin Level Trough 27.9 mcg/mL (10.0-20.0) Vancomycin Last Dose Date 02/13/19 Vancomycin Last Dose Time 0030 White Blood Count 8.3 x10^3/uL (4.0-11.0) Red Blood Count 3.93 x10^6/uL (4.30-5.70) Hemoglobin 13.2 g/dL (13.0-17.5) Hematocrit 39.0 % (39.0-53.0) Mean Corpuscular Volume 99 fL (79-100) Mean Corpuscular Hemoglobin 34 pg (25-35) Mean Corpuscular Hemoglobin Concent 34 g/dL (31-37) Red Cell Distribution Width 15.5 % (11.5-14.5) Platelet Count 365 x10^3/uL (140-400) Neutrophils (%) (Auto) 66 % (31-73) Lymphocytes (%) (Auto) 19 % (24-48) Monocytes (%) (Auto) 10 % (0-9) Eosinophils (%) (Auto) 4 % (0-3) Basophils (%) (Auto) 1 % (0-3) Neutrophils # (Auto) 5.5 x10^3/uL (1.8-7.7) Lymphocytes # (Auto) 1.6 x10^3/uL (1.0-4.8) Monocytes # (Auto) 0.8 x10^3/uL (0.0-1.1) Eosinophils # (Auto) 0.3 x10^3/uL (0.0-0.7) Basophils # (Auto) 0.1 x10^3/uL (0.0-0.2) Segmented Neutrophils % 69 % (35-66) Band Neutrophils % 4 % (0-9) Lymphocytes % 18 % (24-48) Monocytes % 7 % (0-10) Eosinophils % 2 % (0-5) Platelet Estimate Adequate (ADEQUATE) Sodium Level 142 mmol/L (136-145) Potassium Level 4.0 mmol/L (3.5-5.1) Chloride Level 101 mmol/L (98-107) Carbon Dioxide Level 30 mmol/L (21-32) Anion Gap 11 (6-14) Blood Urea Nitrogen 21 mg/dL (8-26) Creatinine 1.3 mg/dL (0.7-1.3) Estimated GFR (Cockcroft-Gault) 55.6 Glucose Level 95 mg/dL (70-99) Calcium Level 10.7 mg/dL (8.5-10.1) Medications Current Medications Potassium Chloride (Klor-Con) 20 meq 1X ONCE PO ; Start 02/09/19 at 16:30; Stop 02/09/19 at 16:30; Status DC Atorvastatin Calcium (Lipitor) 40 mg QHS PO Last administered on 02/13/19 21:43; Start 02/09/19 at 21:00 Vitamin B Complex/ Vitamin C (Yvonne-Sy) 1 tab DAILY PO Last administered on 02/14/19 08:52; Start 02/10/19 at 09:00 Gabapentin (Neurontin) 300 mg BID PO Last administered on 02/14/19 08:52; Start 02/09/19 at 21:00 Lactobacillus Rhamnosus (Culturelle) 1 cap BID PO Last administered on 02/14/19 08:52; Start 02/09/19 at 21:00 Losartan Potassium (Cozaar) 50 mg BID PO Last administered on 02/12/19 21:05; Start 02/09/19 at 21:00; Status Hold Metoprolol Tartrate (Lopressor) 25 mg BID PO Last administered on 02/14/19 08:52; Start 02/09/19 at 21:00 Mupirocin (Bactroban) 1 celia BID TP Last administered on 02/14/19 08:52; Start 02/09/19 at 21:00 Oxycodone HCl (Roxicodone) 20 mg PRN TID PRN PO SEVERE PAIN Last administered on 02/13/19 23:17; Start 02/09/19 at 18:15 Pantoprazole Sodium (Protonix) 40 mg QODAY@0730 PO Last administered on 02/13/19 09:10; Start 02/11/19 at 07:30 Acetaminophen (Tylenol) 500 mg PRN Q6HRS PRN PO Fever > 101.5; Start 02/09/19 at 18:15 Fluvoxamine Maleate (Luvox) 100 mg QHS PO Last administered on 02/13/19 21:43; Start 02/09/19 at 21:00 Magnesium Oxide (Magnesium Oxide) 400 mg DAILY PO Last administered on 02/14/19 08:52; Start 02/10/19 at 09:00 Multivitamins (Thera M Plus) 1 tab DAILY PO Last administered on 02/14/19 08:52; Start 02/10/19 at 09:00 Fish Oil (Fish Oil) 4,000 mg DAILY PO Last administered on 02/14/19 08:52; Start 02/10/19 at 09:00 Non-Formulary Medication (Piperacillin Sodium/Tazobactam (Piperacil-Tazobact 3.375 Gm Vl)) 3.375 gm Q6HRS IV ; Start 02/10/19 at 00:00; Status UNV Non-Formulary Medication (Vancomycin HCl/ D5w (Vancomycin 1.5 Gram/250 ml-D5w)) 1.5 gm Q12HR IV ; Start 02/09/19 at 21:00; Status UNV Vancomycin HCl 1.5 gm/Sodium Chloride 500 ml @ 250 mls/hr Q12H IV Last administered on 02/13/19at 00:10; Start 02/10/19 at 00:00; Stop 02/13/19 at 13:42; Status DC Piperacillin Sod/ Tazobactam Sod 3.375 gm/Sodium Chloride 50 ml @ 100 mls/hr Q6HRS IV Last administered on 02/13/19 12:26; Start 02/09/19 at 18:30; Stop 02/13/19 at 13:42; Status DC Amlodipine Besylate (Norvasc) 5 mg DAILY PO Last administered on 02/14/19 08:52; Start 02/10/19 at 09:00 Aspirin (Ecotrin) 81 mg DAILY PO Last administered on 02/10/19 09:03; Start 02/10/19 at 09:00; Stop 02/10/19 at 11:37; Status DC Chlorthalidone (Thalitone) 25 mg DAILY PO Last administered on 02/14/19 08:52; Start 02/10/19 at 09:00 Clopidogrel Bisulfate (Plavix) 75 mg DAILYWBKFT PO ; Start 02/10/19 at 08:00; S top 02/10/19 at 11:37; Status DC Clopidogrel Bisulfate (Plavix) 75 mg DAILY PO ; Start 02/10/19 at 09:00; Status UNV Folic Acid (Folic Acid) 1 mg DAILY PO Last administered on 02/14/19at 08:52; Start 02/10/19 at 09:00 Gabapentin (Neurontin) 300 mg TID PRN PO tid; Start 02/09/19 at 19:45; Status UNV Acetaminophen/ Hydrocodone Bitart (Lortab 7.5/325) 1 tab PRN QID PRN PO MODERATE PAIN Last administered on 02/14/19at 08:52; Start 02/09/19 at 19:45 Metoprolol Tartrate (Lopressor) 25 mg BID PO ; Start 02/09/19 at 21:00; Status UNV Diclofenac Sodium (Voltaren) 75 mg DAILY PO Last administered on 02/12/19at 09:28; Start 02/10/19 at 09:00; Stop 02/13/19 at 08:41; Status DC Non-Formulary Medication (Fluvoxamine Maleate ) 1 tab QHS PO ; Start 02/09/19 at 21:00; Status UNV Non-Formulary Medication (Losartan Potassium (Cozaar)) 50 mg BID PO ; Start 02/09/19 at 21:00; Status UNV Non-Formulary Medication (Magnesium Oxide (Magnesium)) 1 cap DAILY PO ; Start 02/10/19 at 09:00; Status UNV Non-Formulary Medication (Morrison-3/Dha/Epa/ Fish Oil (Morrison-3 Fish Oil 1,000 Mg Sfgl)) 4,000 mg DAILY PO ; Start 02/10/19 at 09:00; Status UNV Non-Formulary Medication (Simvastatin (Zocor)) 1 tab QHS PO ; Start 02/09/19 at 21:00; Status UNV Non-Formulary Medication (Ubidecarenone (Coq-10)) 100 mg DAILY PO ; Start 02/10/19 at 09:00; Status UNV Vancomycin HCl (Vanco Per Pharmacy) 1 each PRN DAILY PRN MC SEE COMMENTS Last administered on 02/10/19at 10:30; Start 02/09/19 at 21:30; Stop 02/13/19 at 13:42; Status DC Clopidogrel Bisulfate (Plavix) 75 mg DAILYWBKFT PO Last administered on 02/14/19at 08:52; Start 02/13/19 at 08:00 Aspirin (Ecotrin) 81 mg DAILY PO Last administered on 02/14/19at 08:52; Start 02/13/19 at 09:00 Dextrose (Dextrose 50%-Water Syringe) 12.5 gm PRN Q15MIN PRN IV SEE COMMENTS; Start 02/10/19 at 11:45; Stop 02/10/19 at 11:50; Status DC Dextrose 250 ml PRN Q15MIN PRN IV SEE COMMENTS; Start 02/10/19 at 11:45; Stop 02/10/19 at 11:50; Status DC Propofol 20 ml @ As Directed STK-MED ONCE IV ; Start 02/11/19 at 07:34; Stop 02/11/19 at 07:35; Status DC Lidocaine HCl (Lidocaine Pf 2% Vial) 5 ml STK-MED ONCE .ROUTE ; Start 02/11/19 at 07:34; Stop 02/11/19 at 07:35; Status DC Dexamethasone Sodium Phosphate (Decadron) 4 mg STK-MED ONCE .ROUTE ; Start 02/11/19 at 07:34; Stop 02/11/19 at 07:35; Status DC Ondansetron HCl (Zofran) 4 mg STK-MED ONCE .ROUTE ; Start 02/11/19 at 07:34; Stop 02/11/19 at 07:35; Status DC Ondansetron HCl (Zofran) 4 mg PRN Q6HRS PRN IV NAUSEA/VOMITING; Start 02/11/19 at 10:15; Stop 02/11/19 at 14:23; Status DC Fentanyl Citrate (Fentanyl 2ml Vial) 25 mcg PRN Q5MIN PRN IV MILD PAIN 1-3; Start 02/11/19 at 10:15; Stop 02/11/19 at 14:23; Status DC Fentanyl Citrate (Fentanyl 2ml Vial) 50 mcg PRN Q5MIN PRN IV MODERATE TO SEVERE PAIN Last administered on 02/11/19at 11:54; Start 02/11/19 at 10:15; Stop 02/11/19 at 14:23; Status DC Morphine Sulfate (Morphine Sulfate) 1 mg PRN Q10MIN PRN IV SEVERE PAIN 7-10 Last administered on 02/11/19at 11:53; Start 02/11/19 at 10:15; Stop 02/11/19 at 14:23; Status DC Ringer's Solution 1,000 ml @ 30 mls/hr Q24H IV ; Start 02/11/19 at 10:30; Stop 02/11/19 at 14:23; Status DC Lidocaine HCl (Xylocaine-Mpf 1% 2ml Vial) 2 ml PRN 1X PRN ID PRIOR TO IV START; Start 02/11/19 at 10:15; Stop 02/11/19 at 14:23; Status DC Hydromorphone HCl (Dilaudid) 0.5 mg PRN Q10MIN PRN IV SEV PAIN, Second choice Last administered on 02/11/19at 11:59; Start 02/11/19 at 10:15; Stop 02/11/19 at 14:23; Status DC Prochlorperazine Edisylate (Compazine) 5 mg PACU PRN PRN IV NAUSEA, MRX1; Start 02/11/19 at 10:15; Stop 02/11/19 at 14:24; Status DC Fentanyl Citrate (Fentanyl 2ml Vial) 100 mcg STK-MED ONCE .ROUTE ; Start 02/11/19 at 10:36; Stop 02/11/19 at 10:37; Status DC Ephedrine Sulfate (ePHEDrine PF IN SALINE SYRINGE) 50 mg STK-MED ONCE IV ; Start 02/11/19 at 11:01; Stop 02/11/19 at 11:02; Status DC Morphine Sulfate (Morphine Sulfate) 2 mg STK-MED ONCE .ROUTE ; Start 02/11/19 at 11:36; Stop 02/11/19 at 11:37; Status DC Fentanyl Citrate (Fentanyl 2ml Vial) 100 mcg STK-MED ONCE .ROUTE ; Start 02/11/19 at 11:43; Stop 02/11/19 at 11:44; Status DC Hydromorphone HCl (Dilaudid) 2 mg STK-MED ONCE .ROUTE ; Start 02/11/19 at 11:56; Stop 02/11/19 at 11:57; Status DC Active Scripts Active Clopidogrel (Clopidogrel Bisulfate) 75 Mg Tablet 75 Mg PO DAILYWBKFT Reported Roxicodone (Oxycodone Hcl) 30 Mg Tablet 20 Mg PO TID PRN PRN Fluvoxamine Maleate 100 Mg Tablet 1 Tab PO QHS Vancomycin 1.5 Gram/250 ml-D5w (Vancomycin HCl/D5w) 1.5 Gm/250 Ml Plast..bag 1.5 Gm IV Q12HR Zocor (Simvastatin) 40 Mg Tablet 1 Tab PO QHS Piperacil-Tazobact 3.375 Gm Vl (Piperacillin Sodium/Tazobactam) 3.375 Gm Vial 3.375 Gm IV Q6HRS Protonix (Pantoprazole Sodium) 40 Mg Tablet.dr 40 Mg PO QODAY@0730 Morrison 3 Fish Oil Softgel (Morrison-3 Fatty Acids/Fish Oil) 1 Each Capsule.dr 1 Each PO DAILY Mupirocin Ointment (Mupirocin) 22 Gm Oint...g. 1 Celia TP BID Metoprolol Tartrate 25 Mg Tablet 1 Tab PO BID Magnesium Oxide 400 Mg Tablet 1 Tab PO DAILY Cozaar (Losartan Potassium) 100 Mg Tablet 50 Mg PO BID Culturelle (Lactobacillus Rhamnosus Gg) 1 Each Cap.sprink 1 Each PO BID Gabapentin (Gabapentin) 300 Mg Capsule 300 Mg PO BID Nephro-Sy Tablet (Folic Acid/Vitamin B Comp W-C) 0.8 Mg Tablet 1 Tab PO DAILY Plavix (Clopidogrel Bisulfate) 75 Mg Tablet 75 Mg PO DAILY Acetaminophen 500 Mg Tablet 500 Mg PO PRN PRN Folic Acid 1 Mg Tablet 1 Tab PO DAILY Magnesium (Magnesium Oxide) 400 Mg Capsule 1 Cap PO DAILY Aspir-Low (Aspirin) 81 Mg Tablet.dr 1 Tab PO DAILY Amlodipine Besylate 5 Mg Tablet 5 Mg PO DAILY Diclofenac Sodium 75 Mg Tablet.dr 1 Tab PO DAILY Gabapentin (Gabapentin) 300 Mg Capsule 300 Mg PO TID PRN Chlorthalidone (Chlorthalidone) 25 Mg Tablet 25 Mg PO DAILY Atorvastatin Calcium 40 Mg Tablet 1 Tab PO DAILY Fluvoxamine Maleate 100 Mg Tablet 1 Tab PO QHS Losartan Potassium 50 Mg Tablet 50 Mg PO BID Morrison-3 Fish Oil 1,000 Mg Sfgl (Morrison-3/Dha/Epa/Fish Oil) 1,000 Mg Capsule 4,000 Mg PO DAILY Hydrocodone-Apap 7.5-325 (Hydrocodone Bit/Acetaminophen) 1 Each Tablet 1 Tab PO QID PRN Multi-Vitamin Daily (Multivitamin) 1 Each Tablet 1 Each PO DAILY Coq-10 (Ubidecarenone) 100 Mg Capsule 100 Mg PO DAILY Metoprolol Tartrate 25 Mg Tablet 25 Mg PO BID last dose this am Vitals/I & O Vital Sign - Last 24 Hours 02/13/19 02/13/19 02/13/19 02/13/19 15:00 19:00 19:45 21:43 Temp 97.7 97.9 97.7 97.9 Pulse 50 84 84 Resp 20 16 B/P (MAP) 179/78 (111) 142/54 (83) 142/54 Pulse Ox 95 99 O2 Delivery Room Air Room Air Room Air 02/13/19 02/13/19 02/14/19 02/14/19 23:00 23:17 01:08 03:00 Temp 98.0 97.6 98.0 97.6 Pulse 60 58 Resp 16 20 20 16 B/P (MAP) 179/63 (101) 144/71 (95) Pulse Ox 98 96 O2 Delivery Room Air Room Air Room Air Room Air 02/14/19 02/14/19 02/14/19 02/14/19 07:00 08:52 08:52 08:52 Temp 97.9 97.9 Pulse 52 52 52 Resp 16 B/P (MAP) 162/71 (101) 162/71 162/71 Pulse Ox 96 O2 Delivery Room Air Room Air 02/14/19 11:00 Temp 97.9 97.9 Pulse 62 Resp 16 B/P (MAP) 133/66 (88) Pulse Ox 94 O2 Delivery Room Air Intake and Output 02/13/19 02/13/19 02/14/19 14:59 22:59 06:59 Intake Total 700 ml 480 ml 740 ml Output Total 2250 ml Balance 700 ml 480 ml -1510 ml JAMES MARKS MD Feb 14, 2019 11:44
[2019-02-14] MEDS ORDERED: HYDROcodone/APAP 7.5/325MG 1 TAB TABLET PO PRN (14:00)
--- NOTE | 2019-02-14 14:10 | PDOC ---
Infectious Disease Note Subjective Subjective Comfortable Denies F/C/S/N/V/D Urinating well ROS ROS per HPI Vital Sign Vital Signs Vital Signs Date Time Temp Pulse Resp B/P (MAP) Pulse Ox O2 Delivery O2 Flow Rate FiO2 02/14/19 11:54 Room Air 02/14/19 11:00 97.9 62 16 133/66 (88) 94 97.9 Physical Exam PHYSICAL EXAM GENERAL: Propped up in bed, alert, NAD HEENT: Oropharynx clear. NECK: Supple. LUNGS: Clear to auscultation. HEART: S1, S2. ABDOMEN: Obese, soft, and nontender with bowel sounds present. EXTREMITIES: No gross edema or cyanosis. Left foot is mildly swollen, red, and warm with a wound VAC in place, + wrinkling Distal pulses palpable. Vac removed and wounds are clean but deep. mild erythema SKIN: Warm to touch. No signs of rash. Multiple tattoos. NEUROLOGIC: Alert and oriented x 3. E-PIC clean Labs Lab Laboratory Tests Test 02/14/19 07:15 White Blood Count 8.3 x10^3/uL (4.0-11.0) Red Blood Count 3.93 x10^6/uL (4.30-5.70) Hemoglobin 13.2 g/dL (13.0-17.5) Hematocrit 39.0 % (39.0-53.0) Mean Corpuscular Volume 99 fL (79-100) Mean Corpuscular Hemoglobin 34 pg (25-35) Mean Corpuscular Hemoglobin Concent 34 g/dL (31-37) Red Cell Distribution Width 15.5 % (11.5-14.5) Platelet Count 365 x10^3/uL (140-400) Neutrophils (%) (Auto) 66 % (31-73) Lymphocytes (%) (Auto) 19 % (24-48) Monocytes (%) (Auto) 10 % (0-9) Eosinophils (%) (Auto) 4 % (0-3) Basophils (%) (Auto) 1 % (0-3) Neutrophils # (Auto) 5.5 x10^3/uL (1.8-7.7) Lymphocytes # (Auto) 1.6 x10^3/uL (1.0-4.8) Monocytes # (Auto) 0.8 x10^3/uL (0.0-1.1) Eosinophils # (Auto) 0.3 x10^3/uL (0.0-0.7) Basophils # (Auto) 0.1 x10^3/uL (0.0-0.2) Segmented Neutrophils % 69 % (35-66) Band Neutrophils % 4 % (0-9) Lymphocytes % 18 % (24-48) Monocytes % 7 % (0-10) Eosinophils % 2 % (0-5) Platelet Estimate Adequate (ADEQUATE) Sodium Level 142 mmol/L (136-145) Potassium Level 4.0 mmol/L (3.5-5.1) Chloride Level 101 mmol/L (98-107) Carbon Dioxide Level 30 mmol/L (21-32) Anion Gap 11 (6-14) Blood Urea Nitrogen 21 mg/dL (8-26) Creatinine 1.3 mg/dL (0.7-1.3) Estimated GFR (Cockcroft-Gault) 55.6 Glucose Level 95 mg/dL (70-99) Calcium Level 10.7 mg/dL (8.5-10.1) Micro [facility]OB[facility] RES 1 Final Methicillin - resistant Staphylococcus aureus 1-2 colonies . MICS are expressed in micrograms per mL Antibiotic RSLT#1 Ciprofloxacin S<=0.5 Clindamycin S<=0.25 Erythromycin R>=8 Gentamicin S<=0.5 Levofloxacin S =0.25 Linezolid S =2 Oxacillin R>=4 Penicillin R>=0.5 Rifampin S<=0.5 Tetracycline S<=1 Trimethoprim/Sulfa S<=10 Vancomycin S =1 Objective Assessment Right great toe infection and cellulitis of forefoot s/p debridement and removal of foreign body, 02/11. cultures pending -s/p bedside debridement, 02/08 ([facility]). 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 The chart was reviewed. The case was discussed. Agree with the plan of care. MARY FOLEY APRN Feb 14, 2019 14:10 DILLON YUSUF MD Feb 14, 2019 16:18
[2019-02-14 15:00] VITALS: BP 125/72
[2019-02-14] MEDS ORDERED: MORPHINE SULFATE 4 MG/ML VIAL. IV STA (15:09)
[2019-02-14] MEDS: DAPTOmycin (GENERIC) IVPB 600 MG in IV NORMAL SALINE 50ML 50 ML IV SCH (17:46)
--- NOTE | 2019-02-14 18:12 | NUR ---
Wound Care: Follow up dressing change following surgical I&D on 02/11/19. Pt c/o pain, left vac foam to soak while pain meds took effect. Previous dressing removed, R great toe and medial forefoot red, warm, and swollen. Maceration, peeling, and yellow discoloration noted to plantar great toe. Three openings noted, one on R dorsal foot, R dorsal great toe, and R plantar great toe. All 3 openings connected by tunnels, measured and documented as one assessment (see detailed assessment). Cleansed, pictured and measured. 4 pieces of gray foam used to loosely pack tunnels. Ostomy ring to periwound, bridged to R medial midcalf. Veraflow settings to instill ns @ 10cc x5min Q3.5H. Good seal achieved. Half shoe available for pt to ambulate if necessary, but educated pt and to avoid WB to R foot for several days to allow for healing. Plan to follow up on 02/16/19
[2019-02-14 19:00] VITALS: BP 126/67
[2019-02-14] MEDS: LOSARTAN POTASSIUM 50 MG TABLET. PO SCH (22:06)
[2019-02-14] MEDS: ATORVASTATIN CALCIUM 40 MG TABLET. PO SCH (22:07)
[2019-02-14] MEDS: oxyCODONE IR 5 MG TABLET PO PRN (22:17)
[2019-02-14 23:00] VITALS: BP 144/71
[2019-02-15 03:00] VITALS: BP 141/66
[2019-02-15 05:30] LABS: BASO # 0.1 x10^3/uL (0.0-0.2); BASO % 1 % (0-3); EOS # 0.3 x10^3/uL (0.0-0.7); EOS % 4 % (0-3); LYMPH # 1.4 x10^3/uL (1.0-4.8); LYMPH % 16 % (24-48); MEAN CORPUSCULAR HEMOGLOBIN 34 pg (25-35); MEAN CORPUSCULAR HGB CONC 34 g/dL (31-37); MEAN CORPUSCULAR VOLUME 98 fL (79-100); MONO # 0.8 x10^3/uL (0.0-1.1); MONO % 10 % (0-9); NEUT # 6.2 x10^3/uL (1.8-7.7); NEUT % 70 % (31-73); PLATELET COUNT 305 x10^3/uL (140-400); RED BLOOD COUNT 3.58 x10^6/uL (4.30-5.70); RED CELL DISTRIBUTION WIDTH 15.3 % (11.5-14.5); WHITE BLOOD COUNT 8.8 x10^3/uL (4.0-11.0)
[2019-02-15 06:00] LABS: ALBUMIN 2.7 g/dL (3.4-5.0); CREATININE 1.3 mg/dL (0.7-1.3); DIRECT BILIRUBIN 0.2 mg/dL (0.0-0.2); GFR 55.6; POTASSIUM 4.1 mmol/L (3.5-5.1); TOTAL BILIRUBIN 0.4 mg/dL (0.2-1.0); TOTAL PROTEIN 7.9 g/dL (6.4-8.2)
[2019-02-15] MEDS: PANTOPRAZOLE 40 MG TABLET.DR. PO SCH (06:34)
[2019-02-15 07:00] VITALS: BP 131/73
--- NOTE | 2019-02-15 08:20 | PDOC ---
PROGRESS NOTES Chief Complaint Chief Complaint R foot cellulitis with foreign body GERD Neuropathy Chronic pain HTN Hyperlipidemia TIA Cervical fusion h/o MRSA Obesity (BMI 31) CYNDI - likely ATN/AIN, will hold morning dose of vancomycin, hold NSAIDs, hold ARB Hyperkalemia - hold losartan for today History of Present Illness History of Present Illness Mr Madsen is a 63-year-old M w/ PMHx chronic pain, HTN, HLD, TIA who was transferred down from [facility] for failure of improvement after being on IV antibiotics for his great toe infection. It had been spreading to his forefoot. To OR for I&D and wound vac placement no 02/11/19 with orthopedic surgery. 02/13: K 5.5 and Cr 1.4, vanco held He is feeling much better today. Right foot with wound vac, elevated. Awaiting cultures from OR. 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 No CP or SOB. K and c reatine improved. No currently receiving any antibiotics, had vanco trough 27 02/13/19. His LFTs were mildly elevated as well. Plan: D/w ID initial [place] culture positive for MRSA, still awaiting OR cultures from here. I have held vanco, losartan, mobic for CYNDI and hyperkalemia, will d/w ID zyvox vs daptomycin, etc. He is skeptical about the potential cost of dapto. Vitals Vitals Vital Signs Date Time Temp Pulse Resp B/P (MAP) Pulse Ox O2 Delivery O2 Flow Rate FiO2 02/15/19 03:00 97.9 66 16 141/66 (91) 95 Room Air 97.9 Physical Exam Physical Exam GENERAL: Propped up in bed, alert, NAD HEENT: Oropharynx clear. NECK: Supple. LUNGS: Clear to auscultation. HEART: S1, S2. ABDOMEN: Obese, soft, and nontender with bowel sounds present. EXTREMITIES: No gross edema or cyanosis. Left foot is mildly swollen, red, and warm with a wound VAC in place, + wrinkling Distal pulses palpable. Vac removed and wounds are clean but deep. mild erythema SKIN: Warm to touch. No signs of rash. Multiple tattoos. NEUROLOGIC: Alert and oriented x 3. RUE-PICC clean General: Alert, Oriented X3, Cooperative Heart: Regular rate, No murmurs Lungs: Clear Abdomen: Normal bowel sounds, Soft, No tenderness Extremities: No edema, Normal pulses, Other (no edema in his lower extremities with the exception around his right great toe (wound vac currently placed)) Skin: No rashes, No breakdown Labs LABS Laboratory Tests Test 02/15/19 04:45 White Blood Count 8.8 x10^3/uL (4.0-11.0) Red Blood Count 3.58 x10^6/uL (4.30-5.70) Hemoglobin 12.0 g/dL (13.0-17.5) Hematocrit 35.0 % (39.0-53.0) Mean Corpuscular Volume 98 fL (79-100) Mean Corpuscular Hemoglobin 34 pg (25-35) Mean Corpuscular Hemoglobin Concent 34 g/dL (31-37) Red Cell Distribution Width 15.3 % (11.5-14.5) Platelet Count 305 x10^3/uL (140-400) Neutrophils (%) (Auto) 70 % (31-73) Lymphocytes (%) (Auto) 16 % (24-48) Monocytes (%) (Auto) 10 % (0-9) Eosinophils (%) (Auto) 4 % (0-3) Basophils (%) (Auto) 1 % (0-3) Neutrophils # (Auto) 6.2 x10^3/uL (1.8-7.7) Lymphocytes # (Auto) 1.4 x10^3/uL (1.0-4.8) Monocytes # (Auto) 0.8 x10^3/uL (0.0-1.1) Eosinophils # (Auto) 0.3 x10^3/uL (0.0-0.7) Basophils # (Auto) 0.1 x10^3/uL (0.0-0.2) Sodium Level 139 mmol/L (136-145) Potassium Level 4.1 mmol/L (3.5-5.1) Chloride Level 101 mmol/L (98-107) Carbon Dioxide Level 31 mmol/L (21-32) Anion Gap 7 (6-14) Blood Urea Nitrogen 25 mg/dL (8-26) Creatinine 1.3 mg/dL (0.7-1.3) Estimated GFR (Cockcroft-Gault) 55.6 Glucose Level 99 mg/dL (70-99) Calcium Level 10.0 mg/dL (8.5-10.1) Total Bilirubin 0.4 mg/dL (0.2-1.0) Direct Bilirubin 0.2 mg/dL (0.0-0.2) Aspartate Amino Transf (AST/SGOT) 51 U/L (15-37) Alanine Aminotransferase (ALT/SGPT) 95 U/L (16-63) Alkaline Phosphatase 152 U/L (46-116) Creatine Kinase 52 U/L (39-308) Total Protein 7.9 g/dL (6.4-8.2) Albumin 2.7 g/dL (3.4-5.0) Comment Review of Relevant I have reviewed the following items jac (where applicable) has been applied. Labs Laboratory Tests Test 02/13/19 11:50 02/14/19 07:15 02/15/19 04:45 Vancomycin Level Trough 27.9 mcg/mL (10.0-20.0) Vancomycin Last Dose Date 02/13/19 Vancomycin Last Dose Time 0030 White Blood Count 8.3 x10^3/uL (4.0-11.0) 8.8 x10^3/uL (4.0-11.0) Red Blood Count 3.93 x10^6/uL (4.30-5.70) 3.58 x10^6/uL (4.30-5.70) Hemoglobin 13.2 g/dL (13.0-17.5) 12.0 g/dL (13.0-17.5) Hematocrit 39.0 % (39.0-53.0) 35.0 % (39.0-53.0) Mean Corpuscular Volume 99 fL (79-100) 98 fL (79-100) Mean Corpuscular Hemoglobin 34 pg (25-35) 34 pg (25-35) Mean Corpuscular Hemoglobin Concent 34 g/dL (31-37) 34 g/dL (31-37) Red Cell Distribution Width 15.5 % (11.5-14.5) 15.3 % (11.5-14.5) Platelet Count 365 x10^3/uL (140-400) 305 x10^3/uL (140-400) Neutrophils (%) (Auto) 66 % (31-73) 70 % (31-73) Lymphocytes (%) (Auto) 19 % (24-48) 16 % (24-48) Monocytes (%) (Auto) 10 % (0-9) 10 % (0-9) Eosinophils (%) (Auto) 4 % (0-3) 4 % (0-3) Basophils (%) (Auto) 1 % (0-3) 1 % (0-3) Neutrophils # (Auto) 5.5 x10^3/uL (1.8-7.7) 6.2 x10^3/uL (1.8-7.7) Lymphocytes # (Auto) 1.6 x10^3/uL (1.0-4.8) 1.4 x10^3/uL (1.0-4.8) Monocytes # (Auto) 0.8 x10^3/uL (0.0-1.1) 0.8 x10^3/uL (0.0-1.1) Eosinophils # (Auto) 0.3 x10^3/uL (0.0-0.7) 0.3 x10^3/uL (0.0-0.7) Basophils # (Auto) 0.1 x10^3/uL (0.0-0.2) 0.1 x10^3/uL (0.0-0.2) Segmented Neutrophils % 69 % (35-66) Band Neutrophils % 4 % (0-9) Lymphocytes % 18 % (24-48) Monocytes % 7 % (0-10) Eosinophils % 2 % (0-5) Platelet Estimate Adequate (ADEQUATE) Sodium Level 142 mmol/L (136-145) 139 mmol/L (136-145) Potassium Level 4.0 mmol/L (3.5-5.1) 4.1 mmol/L (3.5-5.1) Chloride Level 101 mmol/L (98-107) 101 mmol/L (98-107) Carbon Dioxide Level 30 mmol/L (21-32) 31 mmol/L (21-32) Anion Gap 11 (6-14) 7 (6-14) Blood Urea Nitrogen 21 mg/dL (8-26) 25 mg/dL (8-26) Creatinine 1.3 mg/dL (0.7-1.3) 1.3 mg/dL (0.7-1.3) Estimated GFR (Cockcroft-Gault) 55.6 55.6 Glucose Level 95 mg/dL (70-99) 99 mg/dL (70-99) Calcium Level 10.7 mg/dL (8.5-10.1) 10.0 mg/dL (8.5-10.1) Total Bilirubin 0.4 mg/dL (0.2-1.0) Direct Bilirubin 0.2 mg/dL (0.0-0.2) Aspartate Amino Transf (AST/SGOT) 51 U/L (15-37) Alanine Aminotransferase (ALT/SGPT) 95 U/L (16-63) Alkaline Phosphatase 152 U/L (46-116) Creatine Kinase 52 U/L (39-308) Total Protein 7.9 g/dL (6.4-8.2) Albumin 2.7 g/dL (3.4-5.0) Laboratory Tests Test 02/15/19 04:45 White Blood Count 8.8 x10^3/uL (4.0-11.0) Red Blood Count 3.58 x10^6/uL (4.30-5.70) Hemoglobin 12.0 g/dL (13.0-17.5) Hematocrit 35.0 % (39.0-53.0) Mean Corpuscular Volume 98 fL (79-100) Mean Corpuscular Hemoglobin 34 pg (25-35) Mean Corpuscular Hemoglobin Concent 34 g/dL (31-37) Red Cell Distribution Width 15.3 % (11.5-14.5) Platelet Count 305 x10^3/uL (140-400) Neutrophils (%) (Auto) 70 % (31-73) Lymphocytes (%) (Auto) 16 % (24-48) Monocytes (%) (Auto) 10 % (0-9) Eosinophils (%) (Auto) 4 % (0-3) Basophils (%) (Auto) 1 % (0-3) Neutrophils # (Auto) 6.2 x10^3/uL (1.8-7.7) Lymphocytes # (Auto) 1.4 x10^3/uL (1.0-4.8) Monocytes # (Auto) 0.8 x10^3/uL (0.0-1.1) Eosinophils # (Auto) 0.3 x10^3/uL (0.0-0.7) Basophils # (Auto) 0.1 x10^3/uL (0.0-0.2) Sodium Level 139 mmol/L (136-145) Potassium Level 4.1 mmol/L (3.5-5.1) Chloride Level 101 mmol/L (98-107) Carbon Dioxide Level 31 mmol/L (21-32) Anion Gap 7 (6-14) Blood Urea Nitrogen 25 mg/dL (8-26) Creatinine 1.3 mg/dL (0.7-1.3) Estimated GFR (Cockcroft-Gault) 55.6 Glucose Level 99 mg/dL (70-99) Calcium Level 10.0 mg/dL (8.5-10.1) Total Bilirubin 0.4 mg/dL (0.2-1.0) Direct Bilirubin 0.2 mg/dL (0.0-0.2) Aspartate Amino Transf (AST/SGOT) 51 U/L (15-37) Alanine Aminotransferase (ALT/SGPT) 95 U/L (16-63) Alkaline Phosphatase 152 U/L (46-116) Creatine Kinase 52 U/L (39-308) Total Protein 7.9 g/dL (6.4-8.2) Albumin 2.7 g/dL (3.4-5.0) Microbiology 02/11/19 Anaerobic/Aerobic Culture - Preliminary, Resulted 02/11/19 Anaerobic Culture Result 1 (ERMA), Resulted Pending 02/11/19 Aerobic Culture - Preliminary, Resulted 02/11/19 Aerobic Culture Result 1 (ERMA) - Preliminary, Resulted 02/11/19 Gram Stain - Final, Resulted 02/11/19 Gram Stain Result 1 (ERMA) - Final, Resulted 02/11/19 Gram Stain Result 2 (ERMA) - Final, Resulted Medications Current Medications Potassium Chloride (Klor-Con) 20 meq 1X ONCE PO ; Start 02/09/19 at 16:30; Stop 02/09/19 at 16:30; Status DC Atorvastatin Calcium (Lipitor) 40 mg QHS PO Last administered on 02/14/19at 22:08; Start 02/09/19 at 21:00 Vitamin B Complex/ Vitamin C (Yvonne-Sy) 1 tab DAILY PO Last administered on 02/14/19 08:52; Start 02/10/19 at 09:00 Gabapentin (Neurontin) 300 mg BID PO Last administered on 02/14/19 22:08; Start 02/09/19 at 21:00 Lactobacillus Rhamnosus (Culturelle) 1 cap BID PO Last administered on 02/14/19 22:08; Start 02/09/19 at 21:00 Losartan Potassium (Cozaar) 50 mg BID PO Last administered on 02/14/19 22:08; Start 02/09/19 at 21:00 Metoprolol Tartrate (Lopressor) 25 mg BID PO Last administered on 02/14/19 22:08; Start 02/09/19 at 21:00 Mupirocin (Bactroban) 1 celia BID TP Last administered on 02/14/19 22:11; Start 02/09/19 at 21:00 Oxycodone HCl (Roxicodone) 20 mg PRN TID PRN PO SEVERE PAIN Last administered on 02/14/19 22:17; Start 02/09/19 at 18:15 Pantoprazole Sodium (Protonix) 40 mg QODAY@0730 PO Last administered on 02/15/19 06:34; Start 02/11/19 at 07:30 Acetaminophen (Tylenol) 500 mg PRN Q6HRS PRN PO Fever > 101.5; Start 02/09/19 at 18:15 Fluvoxamine Maleate (Luvox) 100 mg QHS PO Last administered on 02/14/19 22:08; Start 02/09/19 at 21:00 Magnesium Oxide (Magnesium Oxide) 400 mg DAILY PO Last administered on 02/14/19 08:52; Start 02/10/19 at 09:00 Multivitamins (Thera M Plus) 1 tab DAILY PO Last administered on 02/14/19 08:52; Start 02/10/19 at 09:00 Fish Oil (Fish Oil) 4,000 mg DAILY PO Last administered on 02/14/19 08:52; Start 02/10/19 at 09:00 Non-Formulary Medication (Piperacillin Sodium/Tazobactam (Piperacil-Tazobact 3.375 Gm Vl)) 3.375 gm Q6HRS IV ; Start 02/10/19 at 00:00; Status UNV Non-Formulary Medication (Vancomycin HCl/ D5w (Vancomycin 1.5 Gram/250 ml-D5w)) 1.5 gm Q12HR IV ; Start 02/09/19 at 21:00; Status UNV Vancomycin HCl 1.5 gm/Sodium Chloride 500 ml @ 250 mls/hr Q12H IV Last administered on 02/13/19at 00:10; Start 02/10/19 at 00:00; Stop 02/13/19 at 13:42; Status DC Piperacillin Sod/ Tazobactam Sod 3.375 gm/Sodium Chloride 50 ml @ 100 mls/hr Q6HRS IV Last administered on 02/13/19at 12:26; Start 02/09/19 at 18:30; Stop 02/13/19 at 13:42; Status DC Amlodipine Besylate (Norvasc) 5 mg DAILY PO Last administered on 02/14/19 08 :52; Start 02/10/19 at 09:00 Aspirin (Ecotrin) 81 mg DAILY PO Last administered on 02/10/19at 09:03; Start 02/10/19 at 09:00; Stop 02/10/19 at 11:37; Status DC Chlorthalidone (Thalitone) 25 mg DAILY PO Last administered on 02/14/19at 08:52; Start 02/10/19 at 09:00 Clopidogrel Bisulfate (Plavix) 75 mg DAILYWBKFT PO ; Start 02/10/19 at 08:00; Stop 02/10/19 at 11:37; Status DC Clopidogrel Bisulfate (Plavix) 75 mg DAILY PO ; Start 02/10/19 at 09:00; Status UNV Folic Acid (Folic Acid) 1 mg DAILY PO Last administered on 02/14/19at 08:52; Start 02/10/19 at 09:00 Gabapentin (Neurontin) 300 mg TID PRN PO tid; Start 02/09/19 at 19:45; Status UNV Acetaminophen/ Hydrocodone Bitart (Lortab 7.5/325) 1 tab PRN QID PRN PO MODERATE PAIN Last administered on 02/14/19 08:52; Start 02/09/19 at 19:45; Stop 02/14/19 at 13:51; Status DC Metoprolol Tartrate (Lopressor) 25 mg BID PO ; Start 02/09/19 at 21:00; Status UNV Diclofenac Sodium (Voltaren) 75 mg DAILY PO Last administered on 02/12/19at 09:28; Start 02/10/19 at 09:00; Stop 02/13/19 at 08:41; Status DC Non-Formulary Medication (Fluvoxamine Maleate ) 1 tab QHS PO ; Start 02/09/19 at 21:00; Status UNV Non-Formulary Medication (Losartan Potassium (Cozaar)) 50 mg BID PO ; Start 02/09/19 at 21:00; Status UNV Non-Formulary Medication (Magnesium Oxide (Magnesium)) 1 cap DAILY PO ; Start 02/10/19 at 09:00; Status UNV Non-Formulary Medication ([place]-3/Dha/Epa/ Fish Oil ([place]-3 Fish Oil 1,000 Mg Sfgl)) 4,000 mg DAILY PO ; Start 02/10/19 at 09:00; Status UNV Non-Formulary Medication (Simvastatin (Zocor)) 1 tab QHS PO ; Start 02/09/19 at 21:00; Status UNV Non-Formulary Medication (Ubidecarenone (Coq-10)) 100 mg DAILY PO ; Start 02/10/19 at 09:00; Status UNV Vancomycin HCl (Vanco Per Pharmacy) 1 each PRN DAILY PRN MC SEE COMMENTS Last administered on 02/10/19at 10:30; Start 02/09/19 at 21:30; Stop 02/13/19 at 13:42; Status DC Clopidogrel Bisulfate (Plavix) 75 mg DAILYWBKFT PO Last administered on 02/14/19at 08:52; Start 02/13/19 at 08:00 Aspirin (Ecotrin) 81 mg DAILY PO Last administered on 02/14/19at 08:52; Start 02/13/19 at 09:00 Dextrose (Dextrose 50%-Water Syringe) 12.5 gm PRN Q15MIN PRN IV SEE COMMENTS; Start 02/10/19 at 11:45; Stop 02/10/19 at 11:50; Status DC Dextrose 250 ml PRN Q15MIN PRN IV SEE COMMENTS; Start 02/10/19 at 11:45; Stop 02/10/19 at 11:50; Status DC Propofol 20 ml @ As Directed STK-MED ONCE IV ; Start 02/11/19 at 07:34; Stop 02/11/19 at 07:35; Status DC Lidocaine HCl (Lidocaine Pf 2% Vial) 5 ml STK-MED ONCE .ROUTE ; Start 02/11/19 at 07:34; Stop 02/11/19 at 07:35; Status DC Dexamethasone Sodium Phosphate (Decadron) 4 mg STK-MED ONCE .ROUTE ; Start 02/11/19 at 07:34; Stop 02/11/19 at 07:35; Status DC Ondansetron HCl (Zofran) 4 mg STK-MED ONCE .ROUTE ; Start 02/11/19 at 07:34; Stop 02/11/19 at 07:35; Status DC Ondansetron HCl (Zofran) 4 mg PRN Q6HRS PRN IV NAUSEA/VOMITING; Start 02/11/19 at 10:15; Stop 02/11/19 at 14:23; Status DC Fentanyl Citrate (Fentanyl 2ml Vial) 25 mcg PRN Q5MIN PRN IV MILD PAIN 1-3; Start 02/11/19 at 10:15; Stop 02/11/19 at 14:23; Status DC Fentanyl Citrate (Fentanyl 2ml Vial) 50 mcg PRN Q5MIN PRN IV MODERATE TO SEVERE PAIN Last administered on 02/11/19at 11:54; Start 02/11/19 at 10:15; Stop 02/11/19 at 14:23; Status DC Morphine Sulfate (Morphine Sulfate) 1 mg PRN Q10MIN PRN IV SEVERE PAIN 7-10 Last administered on 02/11/19at 11:53; Start 02/11/19 at 10:15; Stop 02/11/19 at 14:23; Status DC Ringer's Solution 1,000 ml @ 30 mls/hr Q24H IV ; Start 02/11/19 at 10:30; Stop 02/11/19 at 14:23; Status DC Lidocaine HCl (Xylocaine-Mpf 1% 2ml Vial) 2 ml PRN 1X PRN ID PRIOR TO IV START; Start 02/11/19 at 10:15; Stop 02/11/19 at 14:23; Status DC Hydromorphone HCl (Dilaudid) 0.5 mg PRN Q10MIN PRN IV SEV PAIN, Second choice Last administered on 02/11/19at 11:59; Start 02/11/19 at 10:15; Stop 02/11/19 at 14:23; Status DC Prochlorperazine Edisylate (Compazine) 5 mg PACU PRN PRN IV NAUSEA, MRX1; Start 02/11/19 at 10:15; Stop 02/11/19 at 14:24; Status DC Fentanyl Citrate (Fentanyl 2ml Vial) 100 mcg STK-MED ONCE .ROUTE ; Start 02/11/19 at 10:36; Stop 02/11/19 at 10:37; Status DC Ephedrine Sulfate (ePHEDrine PF IN SALINE SYRINGE) 50 mg STK-MED ONCE IV ; Start 02/11/19 at 11:01; Stop 02/11/19 at 11:02; Status DC Morphine Sulfate (Morphine Sulfate) 2 mg STK-MED ONCE .ROUTE ; Start 02/11/19 at 11:36; Stop 02/11/19 at 11:37; Status DC Fentanyl Citrate (Fentanyl 2ml Vial) 100 mcg STK-MED ONCE .ROUTE ; Start 02/11/19 at 11:43; Stop 02/11/19 at 11:44; Status DC Hydromorphone HCl (Dilaudid) 2 mg STK-MED ONCE .ROUTE ; Start 02/11/19 at 11:56; Stop 02/11/19 at 11:57; Status DC Acetaminophen/ Hydrocodone Bitart (Lortab 7.5/325) 1 tab PRN Q6HRS PRN PO MODERATE PAIN Last administered on 02/14/19at 15:02; Start 02/14/19 at 14:00 Morphine Sulfate (Morphine Sulfate) 4 mg 1X STAT IV Last administered on 02/14/19at 15:28; Start 02/14/19 at 15:09; Stop 02/14/19 at 15:11; Status DC Daptomycin 600 mg/ Sodium Chloride 50 ml @ 100 mls/hr Q24H IV Last administered on 02/14/19at 17:48; Start 02/14/19 at 17:00 Active Scripts Active Clopidogrel (Clopidogrel Bisulfate) 75 Mg Tablet 75 Mg PO DAILYWBKFT Reported Roxicodone (Oxycodone Hcl) 30 Mg Tablet 20 Mg PO TID PRN PRN Fluvoxamine Maleate 100 Mg Tablet 1 Tab PO QHS Vancomycin 1.5 Gram/250 ml-D5w (Vancomycin HCl/D5w) 1.5 Gm/250 Ml Plast..bag 1.5 Gm IV Q12HR Zocor (Simvastatin) 40 Mg Tablet 1 Tab PO QHS Piperacil-Tazobact 3.375 Gm Vl (Piperacillin Sodium/Tazobactam) 3.375 Gm Vial 3.375 Gm IV Q6HRS Protonix (Pantoprazole Sodium) 40 Mg Tablet.dr 40 Mg PO QODAY@0730 [place] 3 Fish Oil Softgel ([place]-3 Fatty Acids/Fish Oil) 1 Each Capsule.dr 1 Each PO DAILY Mupirocin Ointment (Mupirocin) 22 Gm Oint...g. 1 Celia TP BID Metoprolol Tartrate 25 Mg Tablet 1 Tab PO BID Magnesium Oxide 400 Mg Tablet 1 Tab PO DAILY Cozaar (Losartan Potassium) 100 Mg Tablet 50 Mg PO BID Culturelle (Lactobacillus Rhamnosus Gg) 1 Each Cap.sprink 1 Each PO BID Gabapentin (Gabapentin) 300 Mg Capsule 300 Mg PO BID Nephro-Sy Tablet (Folic Acid/Vitamin B Comp W-C) 0.8 Mg Tablet 1 Tab PO DAILY Plavix (Clopidogrel Bisulfate) 75 Mg Tablet 75 Mg PO DAILY Acetaminophen 500 Mg Tablet 500 Mg PO PRN PRN Folic Acid 1 Mg Tablet 1 Tab PO DAILY Magnesium (Magnesium Oxide) 400 Mg Capsule 1 Cap PO DAILY Aspir-Low (Aspirin) 81 Mg Tablet. 1 Tab PO DAILY Amlodipine Besylate 5 Mg Tablet 5 Mg PO DAILY Diclofenac Sodium 75 Mg Tablet. 1 Tab PO DAILY Gabapentin (Gabapentin) 300 Mg Capsule 300 Mg PO TID PRN Chlorthalidone (Chlorthalidone) 25 Mg Tablet 25 Mg PO DAILY Atorvastatin Calcium 40 Mg Tablet 1 Tab PO DAILY Fluvoxamine Maleate 100 Mg Tablet 1 Tab PO QHS Losartan Potassium 50 Mg Tablet 50 Mg PO BID [place]-3 Fish Oil 1,000 Mg Sfgl ([place]-3/Dha/Epa/Fish Oil) 1,000 Mg Capsule 4,000 Mg PO DAILY Hydrocodone-Apap 7.5-325 (Hydrocodone Bit/Acetaminophen) 1 Each Tablet 1 Tab PO QID PRN Multi-Vitamin Daily (Multivitamin) 1 Each Tablet 1 Each PO DAILY Coq-10 (Ubidecarenone) 100 Mg Capsule 100 Mg PO DAILY Metoprolol Tartrate 25 Mg Tablet 25 Mg PO BID last dose this am Vitals/I & O Vital Sign - Last 24 Hours 02/14/19 02/14/19 02/14/19 02/14/19 08:52 08:52 08:52 11:00 Temp 97.9 97.9 Pulse 52 52 62 Resp 16 B/P (MAP) 162/71 162/71 133/66 (88) Pulse Ox 94 O2 Delivery Room Air Room Air 02/14/19 02/14/19 02/14/19 02/14/19 11:54 15:00 15:02 15:28 Temp 97.9 97.9 Pulse 64 Resp 16 B/P (MAP) 125/72 (89) Pulse Ox 96 O2 Delivery Room Air Room Air Room Air Room Air 02/14/19 02/14/19 02/14/19 02/14/19 17:48 17:55 19:00 19:45 Temp 98.2 98.2 Pulse 68 Resp 16 B/P (MAP) 126/67 (86) Pulse Ox 95 O2 Delivery Room Air Room Air Room Air Room Air 02/14/19 02/14/19 02/14/19 02/14/19 22:08 22:08 22:17 23:00 Temp 98.1 98.1 Pulse 68 68 66 Resp 18 B/P (MAP) 126/67 126/67 144/71 (95) Pulse Ox 96 O2 Delivery Room Air Room Air 02/15/19 02/15/19 01:57 03:00 Temp 97.9 97.9 Pulse 66 Resp 16 B/P (MAP) 141/66 (91) Pulse Ox 95 O2 Delivery Room Air Room Air Intake and Output 02/14/19 02/14/19 02/15/19 14:59 22:59 06:59 Intake Total 400 ml Output Total 675 ml 1550 ml Balance -675 ml -1150 ml JAMES MARKS MD Feb 15, 2019 08:20
[2019-02-15] MEDS: LOSARTAN POTASSIUM 50 MG TABLET. PO SCH ×2 (09:00→20:55)
[2019-02-15] MEDS: MAGNESIUM OXIDE 400 MG TABLET PO SCH (09:13)
[2019-02-15] MEDS: GABAPENTIN 300 MG CAPSULE. PO SCH ×2 (09:13→20:55)
[2019-02-15] MEDS: OMEGA-3 FATTY ACIDS/FISH OIL 1,000 MG CAPSULE. PO SCH (09:13)
[2019-02-15] MEDS: CLOPIDOGREL BISULFATE 75 MG TABLET PO SCH (09:13)
[2019-02-15] MEDS: ASPIRIN ENTERIC COATED 81 MG TABLET.DR. PO SCH (09:13)
[2019-02-15] MEDS: MULTIVITAMIN with MINERAL TABLET. PO SCH (09:13)
[2019-02-15] MEDS: FOLIC ACID 1 MG TABLET. PO SCH (09:13)
[2019-02-15] MEDS: LACTOBACILLUS RHAMNOSUS GG 1 CAPSULE. PO SCH ×2 (09:13→20:53)
[2019-02-15] MEDS: METOPROLOL TART IMMED RELEASE 25 MG TABLET. PO SCH ×2 (09:14→20:55)
[2019-02-15] MEDS: CHLORTHALIDONE 25 MG TABLET. PO SCH (09:14)
[2019-02-15] MEDS: amLODIPine BESYLATE 5 MG TABLET PO SCH (09:14)
[2019-02-15] MEDS: FOLIC/VIT B COMP W-C (RENAL) TABLET. PO SCH (09:18)
[2019-02-15] MEDS: oxyCODONE IR 5 MG TABLET PO PRN ×2 (09:18→22:51)
[2019-02-15] MEDS: MUPIROCIN 2 % NASAL OINTMENT 22GM TUBE. TP SCH ×2 (09:21→20:55)
[2019-02-15 11:00] VITALS: BP 125/73
--- NOTE | 2019-02-15 11:55 | PDOC ---
SUBJECTIVE ROS Feeling better, sitting up in chair Follows renal diet OBJECTIVE Vital Signs Vital Signs Date Time Temp Pulse Resp B/P (MAP) Pulse Ox O2 Delivery O2 Flow Rate FiO2 02/15/19 10:24 16 Room Air 02/15/19 09:18 76 131/73 02/15/19 07:00 97.8 93 97.8 I & 0 Intake and Output 02/15/19 07:00 Intake Total 400 ml Output Total 2225 ml Balance -1825 ml Intake Oral 400 ml Output Urine Total 2225 ml PHYSICAL EXAM Physical Exam GENERAL: Propped up in bed, alert, NAD HEENT: Oropharynx clear. NECK: Supple. LUNGS: Clear to auscultation. HEART: S1, S2. ABDOMEN: Obese, soft, and nontender with bowel sounds present. EXTREMITIES: Rt LE edema 1+ , erythema , wound vac Rt LE, Lt LE trace edema SKIN: No rash. Multiple tattoos. NEUROLOGIC: Alert and oriented x 3. DIAGNOSIS/ASSESSMENT Assessment & Plan CYNDI - Pre-renal Holding ARB and NSAID Renal function stable , E-Lytes and acid base stable Supportive care. monitor Hyperkalemia- resolved Hypercalcemia- mild Normal today R foot cellulitis with foreign body HTN- On chlorthalidone and Losartan CKD 2- Baseline 1.1-1.2 CYNDI in 2016 Will sign off COMMENT/RELEVANT DATA Meds Current Medications Medications (Trade) Dose Ordered Sig/Roseline Start Time Stop Time Status Last Admin Dose Admin Acetaminophen (Tylenol) 500 mg PRN Q6HRS PRN 02/09/19 18:15 Acetaminophen/ Hydrocodone Bitart (Lortab 7.5/325) 1 tab PRN Q6HRS PRN 02/14/19 14:00 02/14/19 15:02 1 TAB Amlodipine Besylate (Norvasc) 5 mg DAILY 02/10/19 09:00 02/15/19 09:18 5 MG Aspirin (Ecotrin) 81 mg DAILY 02/13/19 09:00 02/15/19 09:18 81 MG Atorvastatin Calcium (Lipitor) 40 mg QHS 02/09/19 21:00 02/14/19 22:08 40 MG Chlorthalidone (Thalitone) 25 mg DAILY 02/10/19 09:00 02/15/19 09:18 25 MG Clopidogrel Bisulfate (Plavix) 75 mg DAILYWBKFT 02/13/19 08:00 02/15/19 09:18 75 MG Daptomycin 600 mg/ Sodium Chloride 50 ml @ 100 mls/hr Q24H 02/14/19 17:00 02/14/19 17:48 100 MLS/HR Dexamethasone Sodium Phosphate (Decadron) 4 mg STK-MED ONCE 02/11/19 07:34 02/11/19 07:35 DC Dextrose 250 ml PRN Q15MIN PRN 02/10/19 11:45 02/10/19 11:50 DC Dextrose (Dextrose 50%-Water Syringe) 12.5 gm PRN Q15MIN PRN 02/10/19 11:45 02/10/19 11:50 DC Diclofenac Sodium (Voltaren) 75 mg DAILY 02/10/19 09:00 02/13/19 08:41 DC 02/12/19 09:28 75 MG Ephedrine Sulfate (ePHEDrine PF IN SALINE SYRINGE) 50 mg STK-MED ONCE 02/11/19 11:01 02/11/19 11:02 DC Fentanyl Citrate (Fentanyl 2ml Vial) 100 mcg STK-MED ONCE 02/11/19 11:43 02/11/19 11:44 DC Fish Oil (Fish Oil) 4,000 mg DAILY 02/10/19 09:00 02/15/19 09:18 4,000 MG Fluvoxamine Maleate (Luvox) 100 mg QHS 02/09/19 21:00 02/14/19 22:08 100 MG Folic Acid (Folic Acid) 1 mg DAILY 02/10/19 09:00 02/15/19 09:18 1 MG Gabapentin (Neurontin) 300 mg TID PRN 02/09/19 19:45 UNV Hydromorphone HCl (Dilaudid) 2 mg STK-MED ONCE 02/11/19 11:56 02/11/19 11:57 DC Lactobacillus Rhamnosus (Culturelle) 1 cap BID 02/09/19 21:00 02/15/19 09:18 1 CAP Lidocaine HCl (Lidocaine Pf 2% Vial) 5 ml STK-MED ONCE 02/11/19 07:34 02/11/19 07:35 DC Lidocaine HCl (Xylocaine-Mpf 1% 2ml Vial) 2 ml PRN 1X PRN 02/11/19 10:15 02/11/19 14:23 DC Losartan Potassium (Cozaar) 50 mg BID 02/09/19 21:00 02/14/19 22:08 50 MG Magnesium Oxide (Magnesium Oxide) 400 mg DAILY 02/10/19 09:00 02/15/19 09:18 400 MG Metoprolol Tartrate (Lopressor) 25 mg BID 02/09/19 21:00 UNV Morphine Sulfate (Morphine Sulfate) 4 mg 1X STAT 02/14/19 15:09 02/14/19 15:11 DC 02/14/19 15:28 4 MG Multivitamins (Thera M Plus) 1 tab DAILY 02/10/19 09:00 02/15/19 09:18 1 TAB Mupirocin (Bactroban) 1 kaleb BID 02/09/19 21:00 02/15/19 09:21 1 KALEB Non-Formulary Medication (Fluvoxamine Maleate ) 1 tab QHS 02/09/19 21:00 UNV Non-Formulary Medication (Losartan Potassium (Cozaar)) 50 mg BID 02/09/19 21:00 UNV Non-Formulary Medication (Magnesium Oxide (Magnesium)) 1 cap DAILY 02/10/19 09:00 UNV Non-Formulary Medication ([place]-3/Dha/Epa/ Fish Oil ([place]-3 Fish Oil 1,000 Mg Sfgl)) 4,000 mg DAILY 02/10/19 09:00 UNV Non-Formulary Medication (Piperacillin Sodium/Tazobactam (Piperacil-Tazobact 3.375 Gm Vl)) 3.375 gm Q6HRS 02/10/19 00:00 UNV Non-Formulary Medication (Simvastatin (Zocor)) 1 tab QHS 02/09/19 21:00 UNV Non-Formulary Medication (Ubidecarenone (Coq-10)) 100 mg DAILY 02/10/19 09:00 UNV Non-Formulary Medication (Vancomycin HCl/ D5w (Vancomycin 1.5 Gram/250 ml-D5w)) 1.5 gm Q12HR 02/09/19 21:00 UNV Ondansetron HCl (Zofran) 4 mg PRN Q6HRS PRN 02/11/19 10:15 02/11/19 14:23 DC Oxycodone HCl (Roxicodone) 20 mg PRN TID PRN 02/09/19 18:15 02/15/19 09:18 20 MG Pantoprazole Sodium (Protonix) 40 mg QODAY@0730 02/11/19 07:30 02/15/19 06:34 40 MG Piperacillin Sod/ Tazobactam Sod 3.375 gm/Sodium Chloride 50 ml @ 100 mls/hr Q6HRS 02/09/19 18:30 02/13/19 13:42 DC 02/13/19 12:26 100 MLS/HR Potassium Chloride (Klor-Con) 20 meq 1X ONCE 02/09/19 16:30 02/09/19 16:30 DC Prochlorperazine Edisylate (Compazine) 5 mg PACU PRN PRN 02/11/19 10:15 02/11/19 14:24 DC Propofol 20 ml @ As Directed STK-MED ONCE 02/11/19 07:34 02/11/19 07:35 DC Ringer's Solution 1,000 ml @ 30 mls/hr Q24H 02/11/19 10:30 02/11/19 14:23 DC Vancomycin HCl (Vanco Per Pharmacy) 1 each PRN DAILY PRN 02/09/19 21:30 02/13/19 13:42 DC 02/10/19 10:30 1 EACH Vancomycin HCl 1.5 gm/Sodium Chloride 500 ml @ 250 mls/hr Q12H 02/10/19 00:00 02/13/19 13:42 DC 02/13/19 00:10 250 MLS/HR Vitamin B Complex/ Vitamin C (Yvonne-Sy) 1 tab DAILY 02/10/19 09:00 02/15/19 09:18 1 TAB Lab Laboratory Tests Test 02/15/19 04:45 White Blood Count 8.8 x10^3/uL (4.0-11.0) Red Blood Count 3.58 x10^6/uL (4.30-5.70) Hemoglobin 12.0 g/dL (13.0-17.5) Hematocrit 35.0 % (39.0-53.0) Mean Corpuscular Volume 98 fL (79-100) Mean Corpuscular Hemoglobin 34 pg (25-35) Mean Corpuscular Hemoglobin Concent 34 g/dL (31-37) Red Cell Distribution Width 15.3 % (11.5-14.5) Platelet Count 305 x10^3/uL (140-400) Neutrophils (%) (Auto) 70 % (31-73) Lymphocytes (%) (Auto) 16 % (24-48) Monocytes (%) (Auto) 10 % (0-9) Eosinophils (%) (Auto) 4 % (0-3) Basophils (%) (Auto) 1 % (0-3) Neutrophils # (Auto) 6.2 x10^3/uL (1.8-7.7) Lymphocytes # (Auto) 1.4 x10^3/uL (1.0-4.8) Monocytes # (Auto) 0.8 x10^3/uL (0.0-1.1) Eosinophils # (Auto) 0.3 x10^3/uL (0.0-0.7) Basophils # (Auto) 0.1 x10^3/uL (0.0-0.2) Erythrocyte Sedimentation Rate 120 (0-15) Sodium Level 139 mmol/L (136-145) Potassium Level 4.1 mmol/L (3.5-5.1) Chloride Level 101 mmol/L (98-107) Carbon Dioxide Level 31 mmol/L (21-32) Anion Gap 7 (6-14) Blood Urea Nitrogen 25 mg/dL (8-26) Creatinine 1.3 mg/dL (0.7-1.3) Estimated GFR (Cockcroft-Gault) 55.6 Glucose Level 99 mg/dL (70-99) Calcium Level 10.0 mg/dL (8.5-10.1) Total Bilirubin 0.4 mg/dL (0.2-1.0) Direct Bilirubin 0.2 mg/dL (0.0-0.2) Aspartate Amino Transf (AST/SGOT) 51 U/L (15-37) Alanine Aminotransferase (ALT/SGPT) 95 U/L (16-63) Alkaline Phosphatase 152 U/L (46-116) Creatine Kinase 52 U/L (39-308) Total Protein 7.9 g/dL (6.4-8.2) Albumin 2.7 g/dL (3.4-5.0) Results All relevant outside records, renal labs, imaging studies, telemetry/EKG's were reviewed. SASCHA JIMÉNEZ MD Feb 15, 2019 11:55
--- NOTE | 2019-02-15 12:30 | PDOC ---
Infectious Disease Note Subjective Subjective Comfortable, no concerns Denies F/C/S/N/V/D Urinating well ROS ROS per HPI Vital Sign Vital Signs Vital Signs Date Time Temp Pulse Resp B/P (MAP) Pulse Ox O2 Delivery O2 Flow Rate FiO2 02/15/19 10:24 16 Room Air 02/15/19 09:18 76 131/73 02/15/19 07:00 97.8 93 97.8 Physical Exam PHYSICAL EXAM GENERAL: Sitting in the chair, reading HEENT: Oropharynx clear. NECK: Supple. LUNGS: Clear to auscultation. HEART: S1, S2. ABDOMEN: Obese, soft, and nontender with bowel sounds present. EXTREMITIES: No gross edema or cyanosis. Left foot is mildly swollen, red, and warm with a wound VAC in place, + wrinkling and erythema. SKIN: Warm to touch. No signs of rash. Multiple tattoos. NEUROLOGIC: Alert and oriented x 3. RUE-PICC little bruised Labs Lab Laboratory Tests Test 02/15/19 04:45 White Blood Count 8.8 x10^3/uL (4.0-11.0) Red Blood Count 3.58 x10^6/uL (4.30-5.70) Hemoglobin 12.0 g/dL (13.0-17.5) Hematocrit 35.0 % (39.0-53.0) Mean Corpuscular Volume 98 fL (79-100) Mean Corpuscular Hemoglobin 34 pg (25-35) Mean Corpuscular Hemoglobin Concent 34 g/dL (31-37) Red Cell Distribution Width 15.3 % (11.5-14.5) Platelet Count 305 x10^3/uL (140-400) Neutrophils (%) (Auto) 70 % (31-73) Lymphocytes (%) (Auto) 16 % (24-48) Monocytes (%) (Auto) 10 % (0-9) Eosinophils (%) (Auto) 4 % (0-3) Basophils (%) (Auto) 1 % (0-3) Neutrophils # (Auto) 6.2 x10^3/uL (1.8-7.7) Lymphocytes # (Auto) 1.4 x10^3/uL (1.0-4.8) Monocytes # (Auto) 0.8 x10^3/uL (0.0-1.1) Eosinophils # (Auto) 0.3 x10^3/uL (0.0-0.7) Basophils # (Auto) 0.1 x10^3/uL (0.0-0.2) Erythrocyte Sedimentation Rate 120 (0-15) Sodium Level 139 mmol/L (136-145) Potassium Level 4.1 mmol/L (3.5-5.1) Chloride Level 101 mmol/L (98-107) Carbon Dioxide Level 31 mmol/L (21-32) Anion Gap 7 (6-14) Blood Urea Nitrogen 25 mg/dL (8-26) Creatinine 1.3 mg/dL (0.7-1.3) Estimated GFR (Cockcroft-Gault) 55.6 Glucose Level 99 mg/dL (70-99) Calcium Level 10.0 mg/dL (8.5-10.1) Total Bilirubin 0.4 mg/dL (0.2-1.0) Direct Bilirubin 0.2 mg/dL (0.0-0.2) Aspartate Amino Transf (AST/SGOT) 51 U/L (15-37) Alanine Aminotransferase (ALT/SGPT) 95 U/L (16-63) Alkaline Phosphatase 152 U/L (46-116) Creatine Kinase 52 U/L (39-308) Total Protein 7.9 g/dL (6.4-8.2) Albumin 2.7 g/dL (3.4-5.0) Micro [facility] AEROBIC RES 1 Final Methicillin - resistant Staphylococcus aureus 1-2 colonies . MICS are expressed in micrograms per mL Antibiotic RSLT#1 Ciprofloxacin S<=0.5 Clindamycin S<=0.25 Erythromycin R>=8 Gentamicin S<=0.5 Levofloxacin S =0.25 Linezolid S =2 Oxacillin R>=4 Penicillin R>=0.5 Rifampin S<=0.5 Tetracycline S<=1 Trimethoprim/Sulfa S<=10 Vancomycin S =1 02/11. AEROBIC RES 1 Preliminary Staphylococcus aureus Abnormal 4+ GRAM STAIN Final Final Report GRAM STAIN RES 1 Final No white blood cells seen. GRAM STAIN RES 2 Final Many gram positive cocci in pairs, chains, and clusters Objective Assessment Right great toe infection and cellulitis of forefoot s/p debridement and removal of foreign body, 02/11. GPC chains, pairs and clusters. Staph aureus so far -s/p bedside debridement, 02/08 ([facility]). + MRSA Peripheral neuropathy Hypertension h/o MRSA Obesity Dysuria Plan Plan of Care Continue daptomycin for cidal activity and avoid risk of CYNDI with Vanc UA for dysuria Last dose vanc 02/13 with elevated level so d/cd Off Zosyn Probiotics f/u cultures Dapto susceptibility testing added. D/w micro Local wound care w/ vac as directed Contact isolation D/w at bedside Attending Co-Sign Attending Co-Sign The patient was seen and interviewed as well as examined at the bedside. The chart was reviewed. The case was discussed. Agree with the plan of care. MARY FOLEY APRN Feb 15, 2019 12:30 DILLON YUSUF MD Feb 15, 2019 17:25
--- NOTE | 2019-02-15 13:58 | NUR ---
SS following up with discharge planning. SS met with pt to discuss discharge planning. SS received benefit information stating that IV abt and supplies at home would be over $150/day. SS discussed outpatient services with pt. Pt was concerned with transportation but was able to contact a friend that is able to assist. Pt requested outpatient IV abt and wound care at [facility] in [place], [place]. SS contacted María Falcon, [id number], at [facility] to discuss. SS left a voicemail and am awaiting return call at this time. Physicians notified.
[2019-02-15 15:00] VITALS: BP 123/71
[2019-02-15] MEDS: DAPTOmycin (GENERIC) IVPB 600 MG in IV NORMAL SALINE 50ML 50 ML IV SCH (16:26)
--- NOTE | 2019-02-15 17:44 | NUR ---
Wound [facility] vac application submitted today, awaiting insurance auth.
[2019-02-15 19:00] VITALS: BP 100/56
[2019-02-15] MEDS: ATORVASTATIN CALCIUM 40 MG TABLET. PO SCH (20:53)
[2019-02-15 22:00] VITALS: BP 135/61
[2019-02-16 03:00] VITALS: BP 107/67
[2019-02-16 06:44] LABS: CREATININE 1.4 mg/dL (0.7-1.3); POTASSIUM 3.9 mmol/L (3.5-5.1)
[2019-02-16 07:00] VITALS: BP 126/71
[2019-02-16 07:18] LABS: BASO % 1 % (0-3); EOS # 0.3 x10^3/uL (0.0-0.7); EOS % 4 % (0-3); HEMOGLOBIN 11.6 g/dL (13.0-17.5); LYMPH # 1.4 x10^3/uL (1.0-4.8); LYMPH % 18 % (24-48); MEAN CORPUSCULAR HEMOGLOBIN 34 pg (25-35); MEAN CORPUSCULAR HGB CONC 34 g/dL (31-37); MEAN CORPUSCULAR VOLUME 99 fL (79-100); MONO # 0.8 x10^3/uL (0.0-1.1); MONO % 11 % (0-9); NEUT # 5.1 x10^3/uL (1.8-7.7); NEUT % 67 % (31-73); PLATELET COUNT 268 x10^3/uL (140-400); RED BLOOD COUNT 3.44 x10^6/uL (4.30-5.70); RED CELL DISTRIBUTION WIDTH 14.9 % (11.5-14.5); WHITE BLOOD COUNT 7.6 x10^3/uL (4.0-11.0)
[2019-02-16] MEDS: OMEGA-3 FATTY ACIDS/FISH OIL 1,000 MG CAPSULE. PO SCH (08:27)
[2019-02-16] MEDS: FOLIC/VIT B COMP W-C (RENAL) TABLET. PO SCH (08:28)
[2019-02-16] MEDS: MULTIVITAMIN with MINERAL TABLET. PO SCH (08:29)
[2019-02-16] MEDS: MAGNESIUM OXIDE 400 MG TABLET PO SCH (08:29)
[2019-02-16] MEDS: ASPIRIN ENTERIC COATED 81 MG TABLET.DR. PO SCH (08:30)
[2019-02-16] MEDS: amLODIPine BESYLATE 5 MG TABLET PO SCH (08:30)
[2019-02-16] MEDS: LACTOBACILLUS RHAMNOSUS GG 1 CAPSULE. PO SCH (08:31)
[2019-02-16] MEDS: GABAPENTIN 300 MG CAPSULE. PO SCH (08:32)
[2019-02-16] MEDS: METOPROLOL TART IMMED RELEASE 25 MG TABLET. PO SCH (08:32)
[2019-02-16] MEDS: LOSARTAN POTASSIUM 50 MG TABLET. PO SCH (08:33)
[2019-02-16] MEDS: CLOPIDOGREL BISULFATE 75 MG TABLET PO SCH (08:33)
[2019-02-16] MEDS: FOLIC ACID 1 MG TABLET. PO SCH (08:33)
[2019-02-16] MEDS: CHLORTHALIDONE 25 MG TABLET. PO SCH (08:33)
[2019-02-16] MEDS: MUPIROCIN 2 % NASAL OINTMENT 22GM TUBE. TP SCH (08:39)
[2019-02-16] MEDS: oxyCODONE IR 5 MG TABLET PO PRN ×2 (08:39→13:54)
[2019-02-16 10:59] LABS: BILIRUBIN,URINE NEGATIVE (NEG); CLARITY,URINE CLEAR; COLOR,URINE YELLOW; NITRITE,URINE NEGATIVE (NEG); PROTEIN,URINE NEGATIVE (NEG-TRACE); UROBILINOGEN,URINE 0.2 mg/dL (0.2 mg/dL)
[2019-02-16 11:00] VITALS: BP 114/60
[2019-02-16 11:00] LABS: BACTERIA,URINE 0 /HPF (0-FEW); RBC,URINE 0 /HPF (0-2); WBC,URINE 0 /HPF (0-4)
--- NOTE | 2019-02-16 11:01 | PDOC ---
SUBJECTIVE ROS No complaints OBJECTIVE Vital Signs Vital Signs Date Time Temp Pulse Resp B/P (MAP) Pulse Ox O2 Delivery O2 Flow Rate FiO2 02/16/19 08:40 99 Room Air 2.0 02/16/19 08:40 63 126/71 02/16/19 07:00 97.8 18 97.8 I & 0 Intake and Output 02/16/19 06:59 Intake Total 620 ml Output Total 1400 ml Balance -780 ml Intake Oral 620 ml Output Urine Total 1400 ml # Voids 4 PHYSICAL EXAM Physical Exam GENERAL: alert, NAD HEENT: Oropharynx clear. NECK: Supple. LUNGS: Clear to auscultation. HEART: S1, S2. ABDOMEN: Obese, soft, and nontender with bowel sounds present. EXTREMITIES: Rt LE edema 1+ , erythema , wound vac Rt LE, Lt LE trace edema SKIN: No rash. Multiple tattoos. NEUROLOGIC: Alert and oriented x 3. DIAGNOSIS/ASSESSMENT Assessment & Plan CYNDI - Pre-renal // New baseline Holding ARB and NSAID Renal function stable , E-Lytes and acid base stable Supportive care. monitor , avoid NSAID's , decrease Chlorthalidone Pt follows renal diet on his own Hyperkalemia- resolved Hypercalcemia- mild Resolved R foot cellulitis with foreign body HTN- On chlorthalidone and Losartan Decrease Chlorthalidone to 12.5 mg PO QD CKD 2- Baseline 1.1-1.2 CYNDI in 2016 , reports seen Dr. Lao few years back Follow up with our office post discharge (Non urgent/Routine ) COMMENT/RELEVANT DATA Meds Current Medications Medications (Trade) Dose Ordered Sig/Roseline Start Time Stop Time Status Last Admin Dose Admin Acetaminophen (Tylenol) 500 mg PRN Q6HRS PRN 02/09/19 18:15 Acetaminophen/ Hydrocodone Bitart (Lortab 7.5/325) 1 tab PRN Q6HRS PRN 02/14/19 14:00 02/14/19 15:02 1 TAB Amlodipine Besylate (Norvasc) 5 mg DAILY 02/10/19 09:00 02/16/19 08:39 5 MG Aspirin (Ecotrin) 81 mg DAILY 02/13/19 09:00 02/16/19 08:39 81 MG Atorvastatin Calcium (Lipitor) 40 mg QHS 02/09/19 21:00 02/15/19 20:55 40 MG Chlorthalidone (Thalitone) 25 mg DAILY 02/10/19 09:00 02/16/19 08:40 25 MG Clopidogrel Bisulfate (Plavix) 75 mg DAILYWBKFT 02/13/19 08:00 02/16/19 08:40 75 MG Daptomycin 600 mg/ Sodium Chloride 50 ml @ 100 mls/hr Q24H 02/14/19 17:00 02/15/19 16:26 100 MLS/HR Dexamethasone Sodium Phosphate (Decadron) 4 mg STK-MED ONCE 02/11/19 07:34 02/11/19 07:35 DC Dextrose 250 ml PRN Q15MIN PRN 02/10/19 11:45 02/10/19 11:50 DC Dextrose (Dextrose 50%-Water Syringe) 12.5 gm PRN Q15MIN PRN 02/10/19 11:45 02/10/19 11:50 DC Diclofenac Sodium (Voltaren) 75 mg DAILY 02/10/19 09:00 02/13/19 08:41 DC 02/12/19 09:28 75 MG Ephedrine Sulfate (ePHEDrine PF IN SALINE SYRINGE) 50 mg STK-MED ONCE 02/11/19 11:01 02/11/19 11:02 DC Fentanyl Citrate (Fentanyl 2ml Vial) 100 mcg STK-MED ONCE 02/11/19 11:43 02/11/19 11:44 DC Fish Oil (Fish Oil) 4,000 mg DAILY 02/10/19 09:00 02/16/19 08:39 4,000 MG Fluvoxamine Maleate (Luvox) 100 mg QHS 02/09/19 21:00 02/15/19 20:55 100 MG Folic Acid (Folic Acid) 1 mg DAILY 02/10/19 09:00 02/16/19 08:40 1 MG Gabapentin (Neurontin) 300 mg TID PRN 02/09/19 19:45 UNV Hydromorphone HCl (Dilaudid) 2 mg STK-MED ONCE 02/11/19 11:56 02/11/19 11:57 DC Lactobacillus Rhamnosus (Culturelle) 1 cap BID 02/09/19 21:00 02/16/19 08:39 1 CAP Lidocaine HCl (Lidocaine Pf 2% Vial) 5 ml STK-MED ONCE 02/11/19 07:34 02/11/19 07:35 DC Lidocaine HCl (Xylocaine-Mpf 1% 2ml Vial) 2 ml PRN 1X PRN 02/11/19 10:15 02/11/19 14:23 DC Losartan Potassium (Cozaar) 50 mg BID 02/09/19 21:00 02/14/19 22:08 50 MG Magnesium Oxide (Magnesium Oxide) 400 mg DAILY 02/10/19 09:00 02/16/19 08:39 400 MG Metoprolol Tartrate (Lopressor) 25 mg BID 02/09/19 21:00 UNV Morphine Sulfate (Morphine Sulfate) 4 mg 1X STAT 02/14/19 15:09 02/14/19 15:11 DC 02/14/19 15:28 4 MG Multivitamins (Thera M Plus) 1 tab DAILY 02/10/19 09:00 02/16/19 08:39 1 TAB Mupirocin (Bactroban) 1 kaleb BID 02/09/19 21:00 02/16/19 08:40 1 KALEB Non-Formulary Medication (Fluvoxamine Maleate ) 1 tab QHS 02/09/19 21:00 UNV Non-Formulary Medication (Losartan Potassium (Cozaar)) 50 mg BID 02/09/19 21:00 UNV Non-Formulary Medication (Magnesium Oxide (Magnesium)) 1 cap DAILY 02/10/19 09:00 UNV Non-Formulary Medication (Leslie-3/Dha/Epa/ Fish Oil (Leslie-3 Fish Oil 1,000 Mg Sfgl)) 4,000 mg DAILY 02/10/19 09:00 UNV Non-Formulary Medication (Piperacillin Sodium/Tazobactam (Piperacil-Tazobact 3.375 Gm Vl)) 3.375 gm Q6HRS 02/10/19 00:00 UNV Non-Formulary Medication (Simvastatin (Zocor)) 1 tab QHS 02/09/19 21:00 UNV Non-Formulary Medication (Ubidecarenone (Coq-10)) 100 mg DAILY 02/10/19 09:00 UNV Non-Formulary Medication (Vancomycin HCl/ D5w (Vancomycin 1.5 Gram/250 ml-D5w)) 1.5 gm Q12HR 02/09/19 21:00 UNV Ondansetron HCl (Zofran) 4 mg PRN Q6HRS PRN 02/11/19 10:15 02/11/19 14:23 DC Oxycodone HCl (Roxicodone) 20 mg PRN TID PRN 02/09/19 18:15 02/16/19 08:40 20 MG Pantoprazole Sodium (Protonix) 40 mg QODAY@0730 02/11/19 07:30 02/15/19 06:34 40 MG Piperacillin Sod/ Tazobactam Sod 3.375 gm/Sodium Chloride 50 ml @ 100 mls/hr Q6HRS 02/09/19 18:30 02/13/19 13:42 DC 02/13/19 12:26 100 MLS/HR Potassium Chloride (Klor-Con) 20 meq 1X ONCE 02/09/19 16:30 02/09/19 16:30 DC Prochlorperazine Edisylate (Compazine) 5 mg PACU PRN PRN 02/11/19 10:15 02/11/19 14:24 DC Propofol 20 ml @ As Directed STK-MED ONCE 02/11/19 07:34 02/11/19 07:35 DC Ringer's Solution 1,000 ml @ 30 mls/hr Q24H 02/11/19 10:30 02/11/19 14:23 DC Vancomycin HCl (Vanco Per Pharmacy) 1 each PRN DAILY PRN 02/09/19 21:30 02/13/19 13:42 DC 02/10/19 10:30 1 EACH Vancomycin HCl 1.5 gm/Sodium Chloride 500 ml @ 250 mls/hr Q12H 02/10/19 00:00 02/13/19 13:42 DC 02/13/19 00:10 250 MLS/HR Vitamin B Complex/ Vitamin C (Yvonne-Sy) 1 tab DAILY 02/10/19 09:00 02/16/19 08:39 1 TAB Lab Laboratory Tests Test 02/16/19 06:07 White Blood Count 7.6 x10^3/uL (4.0-11.0) Red Blood Count 3.44 x10^6/uL (4.30-5.70) Hemoglobin 11.6 g/dL (13.0-17.5) Hematocrit 34.0 % (39.0-53.0) Mean Corpuscular Volume 99 fL (79-100) Mean Corpuscular Hemoglobin 34 pg (25-35) Mean Corpuscular Hemoglobin Concent 34 g/dL (31-37) Red Cell Distribution Width 14.9 % (11.5-14.5) Platelet Count 268 x10^3/uL (140-400) Neutrophils (%) (Auto) 67 % (31-73) Lymphocytes (%) (Auto) 18 % (24-48) Monocytes (%) (Auto) 11 % (0-9) Eosinophils (%) (Auto) 4 % (0-3) Basophils (%) (Auto) 1 % (0-3) Neutrophils # (Auto) 5.1 x10^3/uL (1.8-7.7) Lymphocytes # (Auto) 1.4 x10^3/uL (1.0-4.8) Monocytes # (Auto) 0.8 x10^3/uL (0.0-1.1) Eosinophils # (Auto) 0.3 x10^3/uL (0.0-0.7) Basophils # (Auto) 0.0 x10^3/uL (0.0-0.2) Sodium Level 139 mmol/L (136-145) Potassium Level 3.9 mmol/L (3.5-5.1) Chloride Level 100 mmol/L (98-107) Carbon Dioxide Level 30 mmol/L (21-32) Anion Gap 9 (6-14) Blood Urea Nitrogen 33 mg/dL (8-26) Creatinine 1.4 mg/dL (0.7-1.3) Estimated GFR (Cockcroft-Gault) 51.0 Glucose Level 115 mg/dL (70-99) Calcium Level 10.0 mg/dL (8.5-10.1) Results All relevant outside records, renal labs, imaging studies, telemetry/EKG's were reviewed. SASCHA JIMÉNEZ MD Feb 16, 2019 11:00
--- NOTE | 2019-02-16 13:31 | PDOC ---
Infectious Disease Note Subjective Subjective Doing alright Denies F/C/S/N/V/D ROS ROS per HPI Vital Sign Vital Signs Vital Signs Date Time Temp Pulse Resp B/P (MAP) Pulse Ox O2 Delivery O2 Flow Rate FiO2 02/16/19 11:43 96 Room Air 2.0 02/16/19 11:00 97.9 61 20 114/60 (78) 97.9 Physical Exam PHYSICAL EXAM GENERAL: Sitting in the chair, reading HEENT: Oropharynx clear. NECK: Supple. LUNGS: Clear to auscultation. HEART: S1, S2. ABDOMEN: Obese, soft, and nontender with bowel sounds present. EXTREMITIES: No gross edema or cyanosis. Left foot is mildly swollen, red, and warm with a wound VAC in place, + wrinkling and erythema. SKIN: Warm to touch. No signs of rash. Multiple tattoos. NEUROLOGIC: Alert and oriented x 3. [facility] clean Labs Lab Laboratory Tests Test 02/16/19 06:07 02/16/19 09:00 White Blood Count 7.6 x10^3/uL (4.0-11.0) Red Blood Count 3.44 x10^6/uL (4.30-5.70) Hemoglobin 11.6 g/dL (13.0-17.5) Hematocrit 34.0 % (39.0-53.0) Mean Corpuscular Volume 99 fL (79-100) Mean Corpuscular Hemoglobin 34 pg (25-35) Mean Corpuscular Hemoglobin Concent 34 g/dL (31-37) Red Cell Distribution Width 14.9 % (11.5-14.5) Platelet Count 268 x10^3/uL (140-400) Neutrophils (%) (Auto) 67 % (31-73) Lymphocytes (%) (Auto) 18 % (24-48) Monocytes (%) (Auto) 11 % (0-9) Eosinophils (%) (Auto) 4 % (0-3) Basophils (%) (Auto) 1 % (0-3) Neutrophils # (Auto) 5.1 x10^3/uL (1.8-7.7) Lymphocytes # (Auto) 1.4 x10^3/uL (1.0-4.8) Monocytes # (Auto) 0.8 x10^3/uL (0.0-1.1) Eosinophils # (Auto) 0.3 x10^3/uL (0.0-0.7) Basophils # (Auto) 0.0 x10^3/uL (0.0-0.2) Sodium Level 139 mmol/L (136-145) Potassium Level 3.9 mmol/L (3.5-5.1) Chloride Level 100 mmol/L (98-107) Carbon Dioxide Level 30 mmol/L (21-32) Anion Gap 9 (6-14) Blood Urea Nitrogen 33 mg/dL (8-26) Creatinine 1.4 mg/dL (0.7-1.3) Estimated GFR (Cockcroft-Gault) 51.0 Glucose Level 115 mg/dL (70-99) Calcium Level 10.0 mg/dL (8.5-10.1) Urine Collection Type Unknown Urine Color Yellow Urine Clarity Clear Urine pH 7.0 Urine Specific [place] 1.010 Urine Protein Negative mg/dL (NEG-TRACE) Urine Glucose (UA) Negative mg/dL (NEG) Urine Ketones (Stick) Negative mg/dL (NEG) Urine Blood Negative (NEG) Urine Nitrite Negative (NEG) Urine Bilirubin Negative (NEG) Urine Urobilinogen Dipstick 0.2 mg/dL (0.2 mg/dL) Urine Leukocyte Esterase Negative (NEG) Urine RBC 0 /HPF (0-2) Urine WBC 0 /HPF (0-4) Urine Bacteria 0 /HPF (0-FEW) Micro [facility] AEROBIC RES 1 Final Methicillin - resistant Staphylococcus aureus 1-2 colonies . MICS are expressed in micrograms per mL Antibiotic RSLT#1 Ciprofloxacin S<=0.5 Clindamycin S<=0.25 Erythromycin R>=8 Gentamicin S<=0.5 Levofloxacin S =0.25 Linezolid S =2 Oxacillin R>=4 Penicillin R>=0.5 Rifampin S<=0.5 Tetracycline S<=1 Trimethoprim/Sulfa S<=10 Vancomycin S =1 PMC 8/4. AEROBIC RES 1 Final Staphylococcus aureus Staphylococcus aureus Abnormal Methicillin - resistant Staphylococcus aureus MICS are expressed in micrograms per mL Antibiotic RSLT#1 R Ciprofloxacin S<=0.5 Clindamycin S<=0.25 Erythromycin R>=8 Gentamicin S<=0.5 Levofloxacin S<=0.12 Linezolid S =1 Oxacillin R>=4 Penicillin R>=0.5 Rifampin S<=0.5 Tetracycline S<=1 Trimethoprim/Sulfa S<=10 Vancomycin S<=0.5 Objective Assessment Right great toe infection and cellulitis of forefoot s/p debridement and removal of foreign body, 02/11. MRSA -ESR 120 -s/p bedside debridement, 02/08 ([facility]). + MRSA Peripheral neuropathy Hypertension h/o MRSA Obesity Dysuria. UA neg Plan Plan of Care Continue daptomycin for cidal activity and avoid risk of CYNDI with Vanc Last dose vanc 02/13 with elevated level so d/cd Probiotics Dapto susceptibility testing pending Local wound care w/ vac as directed Contact isolation OP abx at [facility] arranged Dapto for at least 4 weeks Doxy for 7 days until Dapto sensitivity confirmed Weekly CBC w/ diff, CMP, ESR, CPK faxed to [phone] f/u our office in 2 weeks D/w case management Attending Co-Sign Attending Co-Sign The patient was seen and interviewed as well as examined at the bedside. The chart was reviewed. The case was discussed. Agree with the plan of care. MARY FOLEY APRN Feb 16, 2019 13:31 DILLON YUSUF MD Feb 16, 2019 14:35
[2019-02-16] MEDS ORDERED: DAPT350V IV (13:42)
[2019-02-16] MEDS ORDERED: MORPHINE SULFATE 4 MG/ML VIAL. IM ONE (13:45)
--- NOTE | 2019-02-16 13:51 | PDOC3 ---
Discharge Summary Visit Information Date of Admission: Feb 09, 2019 Date of Discharge: Feb 16, 2019 Admitting Diagnosis: Right toe cellulitis/abscess Final Diagnosis Right foot cellulitis Brief Hospital Course Allergies Allergies Coded Allergies Type Severity Reaction Last Updated Verified I S O L A T I O N *CONTACT* Allergy Unknown 02/12/19 Yes No Known Medication Allergies Allergy Unknown 02/12/19 Yes Vital Signs Vital Signs Date Time Temp Pulse Resp B/P (MAP) Pulse Ox O2 Delivery O2 Flow Rate FiO2 02/16/19 11:43 96 Room Air 2.0 02/16/19 11:00 97.9 61 20 114/60 (78) 97.9 Lab Results Laboratory Tests Test 02/15/19 04:45 02/16/19 06:07 02/16/19 09:00 White Blood Count 8.8 x10^3/uL (4.0-11.0) 7.6 x10^3/uL (4.0-11.0) Red Blood Count 3.58 x10^6/uL (4.30-5.70) 3.44 x10^6/uL (4.30-5.70) Hemoglobin 12.0 g/dL (13.0-17.5) 11.6 g/dL (13.0-17.5) Hematocrit 35.0 % (39.0-53.0) 34.0 % (39.0-53.0) Mean Corpuscular Volume 98 fL (79-100) 99 fL (79-100) Mean Corpuscular Hemoglobin 34 pg (25-35) 34 pg (25-35) Mean Corpuscular Hemoglobin Concent 34 g/dL (31-37) 34 g/dL (31-37) Red Cell Distribution Width 15.3 % (11.5-14.5) 14.9 % (11.5-14.5) Platelet Count 305 x10^3/uL (140-400) 268 x10^3/uL (140-400) Neutrophils (%) (Auto) 70 % (31-73) 67 % (31-73) Lymphocytes (%) (Auto) 16 % (24-48) 18 % (24-48) Monocytes (%) (Auto) 10 % (0-9) 11 % (0-9) Eosinophils (%) (Auto) 4 % (0-3) 4 % (0-3) Basophils (%) (Auto) 1 % (0-3) 1 % (0-3) Neutrophils # (Auto) 6.2 x10^3/uL (1.8-7.7) 5.1 x10^3/uL (1.8-7.7) Lymphocytes # (Auto) 1.4 x10^3/uL (1.0-4.8) 1.4 x10^3/uL (1.0-4.8) Monocytes # (Auto) 0.8 x10^3/uL (0.0-1.1) 0.8 x10^3/uL (0.0-1.1) Eosinophils # (Auto) 0.3 x10^3/uL (0.0-0.7) 0.3 x10^3/uL (0.0-0.7) Basophils # (Auto) 0.1 x10^3/uL (0.0-0.2) 0.0 x10^3/uL (0.0-0.2) Erythrocyte Sedimentation Rate 120 (0-15) Sodium Level 139 mmol/L (136-145) 139 mmol/L (136-145) Potassium Level 4.1 mmol/L (3.5-5.1) 3.9 mmol/L (3.5-5.1) Chloride Level 101 mmol/L (98-107) 100 mmol/L (98-107) Carbon Dioxide Level 31 mmol/L (21-32) 30 mmol/L (21-32) Anion Gap 7 (6-14) 9 (6-14) Blood Urea Nitrogen 25 mg/dL (8-26) 33 mg/dL (8-26) Creatinine 1.3 mg/dL (0.7-1.3) 1.4 mg/dL (0.7-1.3) Estimated GFR (Cockcroft-Gault) 55.6 51.0 Glucose Level 99 mg/dL (70-99) 115 mg/dL (70-99) Calcium Level 10.0 mg/dL (8.5-10.1) 10.0 mg/dL (8.5-10.1) Total Bilirubin 0.4 mg/dL (0.2-1.0) Direct Bilirubin 0.2 mg/dL (0.0-0.2) Aspartate Amino Transf (AST/SGOT) 51 U/L (15-37) Alanine Aminotransferase (ALT/SGPT) 95 U/L (16-63) Alkaline Phosphatase 152 U/L (46-116) Creatine Kinase 52 U/L (39-308) Total Protein 7.9 g/dL (6.4-8.2) Albumin 2.7 g/dL (3.4-5.0) Urine Collection Type Unknown Urine Color Yellow Urine Clarity Clear Urine pH 7.0 Urine Specific [place] 1.010 Urine Protein Negative mg/dL (NEG-TRACE) Urine Glucose (UA) Negative mg/dL (NEG) Urine Ketones (Stick) Negative mg/dL (NEG) Urine Blood Negative (NEG) Urine Nitrite Negative (NEG) Urine Bilirubin Negative (NEG) Urine Urobilinogen Dipstick 0.2 mg/dL (0.2 mg/dL) Urine Leukocyte Esterase Negative (NEG) Urine RBC 0 /HPF (0-2) Urine WBC 0 /HPF (0-4) Urine Bacteria 0 /HPF (0-FEW) Laboratory Tests Test 02/16/19 06:07 02/16/19 09:00 White Blood Count 7.6 x10^3/uL (4.0-11.0) Red Blood Count 3.44 x10^6/uL (4.30-5.70) Hemoglobin 11.6 g/dL (13.0-17.5) Hematocrit 34.0 % (39.0-53.0) Mean Corpuscular Volume 99 fL (79-100) Mean Corpuscular Hemoglobin 34 pg (25-35) Mean Corpuscular Hemoglobin Concent 34 g/dL (31-37) Red Cell Distribution Width 14.9 % (11.5-14.5) Platelet Count 268 x10^3/uL (140-400) Neutrophils (%) (Auto) 67 % (31-73) Lymphocytes (%) (Auto) 18 % (24-48) Monocytes (%) (Auto) 11 % (0-9) Eosinophils (%) (Auto) 4 % (0-3) Basophils (%) (Auto) 1 % (0-3) Neutrophils # (Auto) 5.1 x10^3/uL (1.8-7.7) Lymphocytes # (Auto) 1.4 x10^3/uL (1.0-4.8) Monocytes # (Auto) 0.8 x10^3/uL (0.0-1.1) Eosinophils # (Auto) 0.3 x10^3/uL (0.0-0.7) Basophils # (Auto) 0.0 x10^3/uL (0.0-0.2) Sodium Level 139 mmol/L (136-145) Potassium Level 3.9 mmol/L (3.5-5.1) Chloride Level 100 mmol/L (98-107) Carbon Dioxide Level 30 mmol/L (21-32) Anion Gap 9 (6-14) Blood Urea Nitrogen 33 mg/dL (8-26) Creatinine 1.4 mg/dL (0.7-1.3) Estimated GFR (Cockcroft-Gault) 51.0 Glucose Level 115 mg/dL (70-99) Calcium Level 10.0 mg/dL (8.5-10.1) Urine Collection Type Unknown Urine Color Yellow Urine Clarity Clear Urine pH 7.0 Urine Specific [place] 1.010 Urine Protein Negative mg/dL (NEG-TRACE) Urine Glucose (UA) Negative mg/dL (NEG) Urine Ketones (Stick) Negative mg/dL (NEG) Urine Blood Negative (NEG) Urine Nitrite Negative (NEG) Urine Bilirubin Negative (NEG) Urine Urobilinogen Dipstick 0.2 mg/dL (0.2 mg/dL) Urine Leukocyte Esterase Negative (NEG) Urine RBC 0 /HPF (0-2) Urine WBC 0 /HPF (0-4) Urine Bacteria 0 /HPF (0-FEW) Brief Hospital Course Mr Madsen is a 63-year-old M w/ PMHx chronic pain, HTN, HLD, TIA who was transferred down from [facility] for failure of improvement after being on IV antibiotics for his great toe infection. It had been spreading to his f orefoot. To OR for I&D and wound vac placement no 02/11/19 with orthopedic surgery. 02/13: K 5.5 and Cr 1.4, vanco held He is feeling much better, seen by nephrology for CYNDI likely 2/2 vanco + zosyn. Right foot with wound vac, elevated. Cultures from OR positive for MRSA. Had h/o MRSA previously on vancomycin but with CYNDI, appropriately switched to daptomycin per ID. No CP or SOB. K and creatine improved. No currently receiving any antibiotics, had vanco trough 27 02/13/19. His LFTs were mildly elevated as well, with his psych medications would be moderately high risk for zyvox as well. Set up for outpatient wound vac changes and 2 weeks of daptomycin. R foot cellulitis with foreign body GERD Neuropathy Chronic pain HTN Hyperlipidemia TIA Cervical fusion h/o MRSA Obesity (BMI 31) CYNDI - likely ATN/AIN, will hold morning dose of vancomycin, hold NSAIDs, hold ARB Hyperkalemia - hold losartan for today Greater than 30 minutes spent on d/c Discharge Information Condition at Discharge: Improved Follow Up: Weeks (2) Disposition/Orders: D/C to Home Scheduled Amlodipine Besylate (Amlodipine Besylate) 5 Mg Tablet, 5 MG PO DAILY for htn, (Reported) Entered as Reported by: LAURITA VENCES on 11/09/181358 Last Action: Continued on 02/09/191935 by JEVON GUAJARDO Aspirin (Aspir-Low) 81 Mg Tablet., 1 TAB PO DAILY for anticoag, #30 Ref 3 (Reported) Entered as Reported by: LAURITA VENCES on 11/09/181358 Last Action: Continued on 02/09/191935 by NIAEloise GUAJARDO Atorvastatin Calcium (Atorvastatin Calcium) 40 Mg Tablet, 1 TAB PO DAILY for hld, #30 Ref 5 (Reported) Entered as Reported by: LAURITA VENCES on 11/09/181358 Last Action: Continued on 02/09/191805 by MAT GARNICA RN Chlorthalidone (Chlorthalidone ) 25 Mg Tablet, 25 MG PO DAILY for DIURETIC, (Reported) Entered as Reported by: LAURITA VENCES on 11/09/181358 Last Action: Continued on 02/09/191935 by NIAEloise GUAJARDO Clopidogrel Bisulfate (Clopidogrel) 75 Mg Tablet, 75 MG PO DAILYWBKFT, #30 Ref 1 Prescribed by: BLANCA CALVO MD on 05/27/16 1141 Last Action: Continued on 02/09/191935 by JEVON GUAJARDO Daptomycin (Daptomycin) 350 Mg Vial, 350 MG IV DAILY for MRSA wound for 14 Days, #14 Prescribed by: JAMES MARKS MD on 02/16/19 1342 Diclofenac Sodium (Diclofenac Sodium) 75 Mg Tablet.dr, 1 TAB PO DAILY for inflammation, #60 Ref 1 (Reported) Entered as Reported by: LAURITA VENCES on 11/09/181358 Last Action: Converted on 02/09/191935 by JEVON GUAJARDO Fluvoxamine Maleate (Fluvoxamine Maleate) 100 Mg Tablet, 1 TAB PO QHS for unk, #30 Ref 2 (Reported) Entered as Reported by: LAURITA VENCES on 11/09/181358 Last Action: Converted on 02/09/191805 by MAT GARNICA RN Folic Acid (Folic Acid) 1 Mg Tablet, 1 TAB PO DAILY for supp, #90 Ref 1 (Reported) Entered as Reported by: LAURITA VENCES on 11/09/181358 Last Action: Continued on 02/09/191935 by JEVON GUAJARDO Folic Acid/Vitamin B Comp W-C (Nephro-Sy Tablet) 0.8 Mg Tablet, 1 TAB PO DAILY for unknown, #30 Ref 5 (Reported) Entered as Reported by: MAT GARNICA RN on 02/09/191726 Last Action: Continued on 02/09/191805 by MAT GARNICA RN Gabapentin (Gabapentin ) 300 Mg Capsule, 300 MG PO BID for NEUROGENIC PAIN, (Reported) Entered as Reported by: MAT GARNICA RN on 02/09/191726 Last Action: Continued on 02/09/191805 by MAT GARNICA RN Lactobacillus Rhamnosus Gg (Culturelle) 1 Each Cap.sprink, 1 EACH PO BID for probiotic, (Reported) Entered as Reported by: MAT GARNICA RN on 02/09/191726 Last Action: Continued on 02/09/191805 by MAT GARNICA RN Losartan Potassium (Losartan Potassium) 50 Mg Tablet, 50 MG PO BID for HYPERTENSION, (Reported) Entered as Reported by: LAURITA VENCES on 11/09/181358 Last Action: Continued on 02/09/191805 by MAT GARNICA RN Magnesium Oxide (Magnesium Oxide) 400 Mg Tablet, 1 TAB PO DAILY for constipation, #30 Ref 5 (Reported) Entered as Reported by: MAT GARNICA RN on 02/09/191726 Last Action: Converted on 02/09/191805 by MAT GARNICA RN Metoprolol Tartrate (Metoprolol Tartrate) 25 Mg Tablet, 1 TAB PO BID for HTN, #180 Ref 1 (Reported) Entered as Reported by: MAT GARNICA RN on 02/09/191726 Last Action: Continued on 02/09/191805 by MAT GARNICA RN Multivitamin (Multi-Vitamin Daily) 1 Each Tablet, 1 EACH PO DAILY, (Reported) Entered as Reported by: KOBI MONROE on 12/13/141218 Last Action: Converted on 02/09/191805 by MAT GARNICA RN Mupirocin (Mupirocin Ointment) 22 Gm Oint...g., 1 ZACK TP BID for WOUND CARE, #1 (Reported) Entered as Reported by: MAT GARNICA RN on 02/09/191726 Last Action: Continued on 02/09/191805 by MAT GARNICA RN Encinal-3 Fatty Acids/Fish Oil (Encinal 3 Fish Oil Softgel) 1 Each Capsule.dr, 1 EACH PO DAILY for hyperlipedimia, (Reported) Entered as Reported by: MAT GARNICA RN on 02/09/191726 Last Action: Converted on 02/09/191805 by MAT GARNICA RN Pantoprazole Sodium (Protonix ) 40 Mg Tablet.dr, 40 MG PO QODAY@0730 for GERD, (Reported) Entered as Reported by: MAT GARNICA RN on 02/09/191726 Last Action: Continued on 02/09/191805 by MAT GARNICA RN Ubidecarenone (Coq-10) 100 Mg Capsule, 100 MG PO DAILY, (Reported) Entered as Reported by: KOBI MONROE on 12/13/141218 Last Action: Converted on 02/09/191935 by JEVON GUAJARDO Scheduled PRN Acetaminophen (Acetaminophen) 500 Mg Tablet, 500 MG PO PRN PRN for FEVER > 101.5'F, (Reported) Entered as Reported by: MAT GARNICA RN on 02/09/191726 Last Taken: Unknown Dose on 02/09/19 0955 Last Action: Converted on 02/09/191805 by MAT GARNICA RN Gabapentin (Gabapentin ) 300 Mg Capsule, 300 MG PO TID PRN for tid, (Reported) Entered as Reported by: LAURITA VENCES on 11/09/18 135 Last Action: Continued on 02/09/191935 by NIAEloise GUAJARDO Hydrocodone Bit/Acetaminophen (Hydrocodone-Apap 7.5-325 ) 1 Each Tablet, 1 TAB PO QID PRN for PAIN, Ref 0 (Reported) Entered as Reported by: LYRIC SCHAFER on 01/22/16 0940 Last Action: Continued on 02/09/191935 by NIAEloise GUAJARDO Oxycodone Hcl (Roxicodone) 30 Mg Tablet, 20 MG PO TID PRN PRN for PAIN, (Reported) Entered as Reported by: MAT GARNICA RN on 02/09/191726 Last Action: Continued on 02/09/191805 by MAT GARNICA RN Discontinued Medications Clopidogrel Bisulfate (Plavix) 75 Mg Tablet, 75 MG PO DAILY for TO PREVENT BLOOD CLOTS, #30 Ref 0 (Reported) Entered as Reported by: MAT GARNICA RN on 02/09/191726 Last Action: Continued on 02/09/191935 by NIAEloise GUAJARDO Fluvoxamine Maleate (Fluvoxamine Maleate) 100 Mg Tablet, 1 TAB PO QHS for OCD, #30 Ref 2 (Reported) Entered as Reported by: MAT GARNICA RN on 02/09/191726 Last Action: Converted on 02/09/191935 by NIAEloise GUAJARDO Losartan Potassium (Cozaar) 100 Mg Tablet, 50 MG PO BID for HYPERTENSION, (Reported) Entered as Reported by: MAT GARNICA RN on 02/09/191726 Last Action: Converted on 02/09/191935 by NIAEloise GUAJARDO Magnesium Oxide (Magnesium) 400 Mg Capsule, 1 CAP PO DAILY for supp, #30 Ref 3 (Reported) Entered as Reported by: LAURITA VENCES on 11/09/181358 Last Action: Converted on 02/09/191935 by NIAEloise GUAJARDO Metoprolol Tartrate (Metoprolol Tartrate) 25 Mg Tablet, 25 MG PO BID for beta carol, (Reported) last dose this am Entered as Reported by: ALLEN NDIAYE on 11/07/13 1450 Last Action: Continued on 02/09/191935 by NIAEloise GUAJARDO Encinal-3/Dha/Epa/Fish Oil (Encinal-3 Fish Oil 1,000 Mg Sfgl) 1,000 Mg Capsule, 4,000 MG PO DAILY for supp, (Reported) Entered as Reported by: LAURITA VENCES on 11/09/18 1359 Last Action: Converted on 02/09/191935 by JEVON GUAJARDO Piperacillin Sodium/Tazobactam (Piperacil-Tazobact 3.375 Gm Vl) 3.375 Gm Vial, 3.375 GM IV Q6HRS for infection, (Reported) Entered as Reported by: MAT GARNICA RN on 02/09/191726 Last Taken: Unknown Dose on 02/09/19 0800 Last Action: Converted on 02/09/191805 by MAT GARNICA RN Simvastatin (Zocor) 40 Mg Tablet, 1 TAB PO QHS for HTN, #90 Ref 1 (Reported) Entered as Reported by: MAT GARNICA RN on 02/09/191726 Last Action: Converted on 02/09/191935 by JEVON GUAJARDO Vancomycin HCl/D5w (Vancomycin 1.5 Gram/250 ml-D5w) 1.5 Gm/250 Ml Plast..bag, 1.5 GM IV Q12HR for infection, (Reported) Entered as Reported by: MAT GARNICA RN on 02/09/191726 Last Taken: Unknown Dose on 02/09/19 1200 Last Action: Converted on 02/09/191805 by DAVEY PAZ CHRISTOPHER S MD Feb 16, 2019 13:51
--- NOTE | 2019-02-16 13:55 | NUR ---
SS following up with discharge planning. [facility] agreeable to outpatient Daptomycin and wound care. SS phoned and faxed script and clinical to María Falcon at [facility], [phone]; fax [phone]. María reported that pt is to come to [facility] to [facility] at 1000 daily for IV Dapto and wound care. Pt and pt's RN notified.
--- NOTE | 2019-02-16 14:46 | NUR ---
Wound Care: Follow up for dressing change following surgical I&D on 02/11/19. Home wound vac not approved by insurance as of today. Wound vac dressing removed. Some redness and edema to R proximal dorsal foot. Maceration, peeling, and yellow discoloration noted to plantar great toe. See wound intervention. Wound cleansed with saline wash, packed with aquacel AG rope to all three openings, covered with ABDs and kerlix and half shoe. Pt tolerated procedure well. Pt to follow up with [facility] wound care center on 02/20, information provided to pt. Pt to follow up at [facility] for daily IV abx and wound care dressing changes every other day. Wound dressing changes recommendations as follow: cleanse wound with saline wash, pack aquacel ag rope into all three openings, one on R dorsal foot, R dorsal great toe and R plantar great toe. (R dorsal great toe and R plantar great toe are connected.), cover with ABD and kerlix, change every other day (next dressing change due on Tuesday02/18/19)
[2019-02-16 15:00] VITALS: BP 116/60
[2019-02-16] MEDS: DAPTOmycin (GENERIC) IVPB 600 MG in IV NORMAL SALINE 50ML 50 ML IV SCH (15:14)
[2019-02-16] MEDS ORDERED: HYDR-2765 PO (15:14)
--- NOTE | 2019-02-16 16:29 | NUR ---
Pt was discharged to home at 1630 today in stable condition with all personal belongings after reviewing all pertinent information including education, medications, follow up and at home care. Pt was escorted by staff and driven home by his
[2019-02-17] MEDS ORDERED: CHLORTHALIDONE 25 MG TABLET. PO SCH (09:00)
== END 2019-02-16 16:30 | disposition home or self-care (01) | DRG 570 ==
LOC: 4 NORTH 15:02
PROVIDERS: ADMIT Internal Medicine; ATTEND Internal Medicine
PROC: 0JBR0ZZ Excision of Left Foot Subcutaneous Tissue and Fascia, Open Approach (ICD-10-PCS; 2019-02-11)
PROC: 0JCR0ZZ Extirpation of Matter from Left Foot Subcutaneous Tissue and Fascia, Open Approach (ICD-10-PCS; principal; 2019-02-11 11:00)
DX: L03.116 Cellulitis of left lower limb (principal); N17.0 Acute kidney failure with tubular necrosis; N18.4 Chronic kidney disease, stage 4 (severe); L03.115 Cellulitis of right lower limb; E66.9 Obesity, unspecified; E78.5 Hyperlipidemia, unspecified; E87.5 Hyperkalemia; Z96.653 Presence of artificial knee joint, bilateral; F32.9 Major depressive disorder, single episode, unspecified; F41.9 Anxiety disorder, unspecified; M19.90 Unspecified osteoarthritis, unspecified site; F90.9 Attention-deficit hyperactivity disorder, unspecified type; G62.9 Polyneuropathy, unspecified; G89.29 Other chronic pain; K59.00 Constipation, unspecified; I12.9 Hypertensive chronic kidney disease with stage 1 through stage 4 chronic kidney disease, or unspecified chronic kidney disease; R30.0 Dysuria; E83.52 Hypercalcemia; N18.2 Chronic kidney disease, stage 2 (mild); B95.61 Methicillin susceptible Staphylococcus aureus infection as the cause of diseases classified elsewhere; I25.10 Atherosclerotic heart disease of native coronary artery without angina pectoris; K21.9 Gastro-esophageal reflux disease without esophagitis; M79.7 Fibromyalgia; Z82.49 Family history of ischemic heart disease and other diseases of the circulatory system; Z86.010 Personal history of colon polyps; Z68.31 Body mass index [BMI] 31.0-31.9, adult; Z90.49 Acquired absence of other specified parts of digestive tract; Z86.14 Personal history of Methicillin resistant Staphylococcus aureus infection; Z86.73 Personal history of transient ischemic attack (TIA), and cerebral infarction without residual deficits; Z87.442 Personal history of urinary calculi; Z98.1 Arthrodesis status
CPT/HCPCS: 36415; 80048; 80076; 80202; 81001; 82550; 85007; 85025; 85651; 87071; 87075; 87186; A7015; J0171; J0878; J1100; J1170; J2001; J2270; J2405; J2543; J2704; J3010; J3370; J7040; 97110; 97116; A4461; G0378

== ENCOUNTER → 2019-04-30 | Outpatient (CLI) | payer BC ==
[~2019-04-30] MED LIST changes: +ACET500T68 PO; +BUPIVACAINE MPF 0.25% 10 ML VIAL. ONE; +CLOP75TA57 PO; +DAPT350V IV; +FOLI0.8T3 PO; +IOHEXOL 180 MG/ML 10 ML VIAL. ONE; +LACT1CAP19 PO; +LOSA100T2 PO; +MAGN400T5 PO; +MUPI22OI2 TP; +OMEG1CAP38 PO; +OXYC30TA21 PO; +PANT40TA77 PO; +PIPE3.3734 IV; +SIMV40TA PO; +VANC1.5P12 IV; +methylPREDNISolone ACETATE 40 MG/ML VIAL. ONE; +methylPREDNISolone ACETATE 80 MG/ML VIAL. ONE
--- NOTE | 2019-04-30 10:47 | PAIN ---
DATE OF SERVICE: 04/30/2019 PROGRESS NOTE FOR PAIN CLINIC DIAGNOSES: Lumbar radiculopathy with lumbar degenerative disk disease and lumbar post-laminectomy syndrome. HISTORY OF PRESENT ILLNESS: The patient is a 63-year-old male who returns for followup status post bilateral L5-S1 transforaminal injections, most recently seen on 02/05/2019, the patient did very well about 80% improvement that is about 2 months. The patient reports the pain is returning now in the low back radiating to posterior gluteus, posterior thighs bilaterally, worse with walking, standing and changing positions. No bowel or bladder incontinence. No new motor or sensory deficits. The patient reports it is a 7 on a scale of 10 at its worst over the past week, 4 on average, 1 at its least and is a 4 today. The patient reports it is aching, sharp, dull, tight and shooting into the lower extremities with radiating pain becomes constant with activity. The patient reports it awakens him from sleep about every 3 hours here recently over the past few weeks. The patient reports no new changes, no new bowel or bladder incontinence or other complaints. PHYSICAL EXAMINATION: VITAL SIGNS: The patient's blood pressure 140/89, pulse 66, respirations 18, temperature 97.8 degrees Fahrenheit, height is 5 feet 10 inches and weight is 231 pounds. GENERAL: The patient is awake, alert, oriented, appropriate, very pleasant demeanor. HEENT: Exam shows normocephalic, atraumatic. Extraocular movements are intact and symmetrical. Oral cavity: Mucous membranes are moist and pink. Dentition is intact. NECK: Shows anterior throat supple. CHEST: Shows normal on inspection. Breath sounds are clear bilaterally. HEART: Shows S1, S2 clear. ABDOMEN: Obese, soft, nontender, nondistended. The patient has some bruising from his Lovenox shots on the lower abdomen bilaterally. BACK: The patient's back shows spine grossly in the midline. Some significant flattening of lumbar lordotic curvature. Well-healed multiple surgical scars noted. With palpation or on inspection, the paraspinous musculature shows symmetrical, with palpation shows some moderate tenderness diffusely throughout the upper, middle and lower distribution of paraspinous muscles but without specific radiation. The patient has good rotational motion with some limitation with extension and flexion, but only from mechanical, not from secondary to pain. EXTREMITIES: The patient's lower extremities show deep tendon reflexes 1+ in the patellar and tendo-calcaneus tendons. Motor exam is approximately 4 on a scale of 5 and equal with dorsiflexion, extension, quadriceps and hamstring flexion bilaterally. Options were discussed with the patient. The patient's old chart was reviewed as his current medication regimen updated. Current review of systems updated today as well. We will proceed with bilateral L5-S1 transforaminal epidural injection using fluoroscopic guidance. Risks were again discussed including, but not limited to bleeding, infection, possibility of epidural hematoma, subsequent neurological compromise, dural puncture, headaches, spinal cord and/or nerve damage, side effects of steroid medication, potential injection of the vertebral artery at each level and permanent ischemic damage as well as exposure to fluoroscopy and poor results regarding pain control. The patient understands and wished to proceed. The patient will return to clinic in approximately 2 weeks for followup. He was counseled as to return appointment, activity level and side effects to be aware of. DIAGNOSES: Lumbar radiculopathy with lumbar degenerative disk disease and lumbar post-laminectomy syndrome. PROCEDURE: Bilateral L5-S1 transforaminal injection using C-arm fluoroscopic guidance under sterile prep and drape using local anesthetic. MEDICATION INJECTED: A total of 120 mg of Depo-Medrol, 60 mg per side, a total of 4 mL of 0.25% bupivacaine, 2 mL each side and total of 3 mL of contrast, 1.5 mL each side with good spread into each epidural space, right and left as well as tracking along the nerve root in each right and left level at the L5-S1 without uptake on digital subtraction bilaterally. CONDITION AT DISCHARGE: Stable. The patient tolerated the procedure well, had no complications. The patient will restart his Plavix tomorrow. He is on Lovenox, will continue that as directed as restart Plavix again tomorrow. LIONEL TORREZ MD DR: VICENTE/nts JOB#: [id number] / [id number]
== END ==
LOC: PNCL 09:06
PROVIDERS: ATTEND Anesthesiology
DX: M51.16 Intervertebral disc disorders with radiculopathy, lumbar region (principal); M96.1 Postlaminectomy syndrome, not elsewhere classified
CPT/HCPCS: 64483; J1030; J1040; J3490; Q9965; 64484

== ENCOUNTER → 2019-08-08 | Outpatient (CLI) | payer MEDICARE, BC ==
[~2019-08-08] MED LIST changes: +FENO145T3 PO; -FENO145T30 PO
--- NOTE | 2019-08-08 09:29 | PAIN ---
DATE OF SERVICE: 08/08/2019 PROGRESS NOTE FOR PAIN CLINIC DIAGNOSES: Lumbar radiculopathy with lumbar degenerative disk disease and lumbar post-laminectomy syndrome. HISTORY OF PRESENT ILLNESS: The patient is a 64-year-old male who returns for followup status post transforaminal injections bilaterally at L5-S1 with about 80% improvement for about 6 weeks. The patient reports the pain began to return and then last seen 04/30. The patient did very well with the injections, but the pain is returning in the low back, bilateral lower extremities, posterior gluteus, posterior thighs, posterior calves, radiating, worse with walking, standing, changing positions, better with sitting or lying down. Initially, he was increasing distance walking, doing work activities, household activities with much greater ease and comfort, traveling with greater ease. Now, the pain is beginning to return as described. The patient reports it is 8 on a scale of 10 at its worst over the past week, 6 on average, 1 at its least and is a 6 today. The patient reports it is aching, sharp, shooting, tingling, burning, stabbing pain is radiating, becoming more constant. The patient reports no new motor or sensory deficits, no new bowel or bladder incontinence. PHYSICAL EXAMINATION: VITAL SIGNS: The patient's blood pressure 140/85, pulse 72, respirations 18, temperature 98.2 degrees Fahrenheit, height is 5 feet 10 inches, weight is 242 pounds. GENERAL: The patient is awake, alert, oriented, appropriate, very pleasant demeanor. HEENT: Shows normocephalic, atraumatic. Extraocular movements are intact and symmetrical. Oral cavity: Mucous membranes moist and pink. Dentition is intact. NECK: Shows anterior throat supple without palpable lymphadenopathy noted. Swallow reflex symmetrical. CHEST: Shows normal on inspection. Breath sounds are clear bilaterally. HEART: Shows S1, S2 clear. No murmurs auscultated. ABDOMEN: Soft, nontender, nondistended. BACK: Shows spine grossly in the midline. Normal-appearing thoracic kyphosis and flattening of lumbar lordotic curvature with well-healed surgical scarring noted. Lumbar paraspinous muscle shows symmetrical on inspection, on palpation shows some moderate tenderness diffusely bilaterally, but only diffusely without radiation. The patient has good rotational motion with some moderate tenderness right and left lateral rotation greater than 10 degrees and increased tenderness with extension greater than 10 degrees, forward flexion decreases the pain at 45 degrees. EXTREMITIES: The patient's lower extremities show deep tendon reflexes at 1+ in the patellar and tendo calcaneus tendons. Motor exam is approximately 4 on a scale of 5, but equal and symmetrical with dorsiflexion, extension, quadriceps and hamstrings. Peripheral pulses are 1+ posterior tibia. No peripheral edema is noted bilaterally. Options were discussed with the patient. The patient's old chart was reviewed as his current medication regimen updated. Current review of systems updated today as well. We will proceed with bilateral transforaminal L5-S1 epidural injections using fluoroscopic guidance. Risks were again discussed including, but not limited to bleeding, infection, possibility of epidural hematoma, subsequent neurological compromise, dural puncture, headaches, spinal cord and/or nerve damage, side effects of steroid medication, potential injection of the vertebral artery at each level and permanent ischemic damage as well as poor results regarding pain control. The patient understands and wished to proceed. The patient will return to clinic in approximately 2 weeks for followup. She was counseled on return appointment, activity level and side effects to be aware of. DIAGNOSIS: Lumbar radiculopathy with lumbar degenerative disk disease and lumbar post-laminectomy syndrome. PROCEDURE: Bilateral L5-S1 transforaminal injections with C-arm fluoroscopic guidance under sterile prep and drape using local anesthetic. MEDICATION INJECTED: A total of 120 mg Depo-Medrol, 60 mg at each side and total of 3 mL of contrast, 1.5 mL each side with good spread medially into the epidural space and laterally along the nerve root at each side, left and right, with no washout. Negative uptake with digital subtraction bilateral injections. CONDITION AT DISCHARGE: Stable. The patient tolerated the procedure well, had no complications. LIONEL TORREZ MD DR: VICENTE/kayode JOB#: [id number] / [id number]
== END | disposition home or self-care (01) ==
LOC: PNCL 07:33
PROVIDERS: ATTEND Anesthesiology
DX: M51.16 Intervertebral disc disorders with radiculopathy, lumbar region (principal); M96.1 Postlaminectomy syndrome, not elsewhere classified; Z98.890 Other specified postprocedural states; Z91.041 Radiographic dye allergy status
CPT/HCPCS: 64483; J1030; J1040; J3490; Q9965

== ENCOUNTER → 2019-09-26 | Outpatient (CLI) | payer MEDICARE, BC ==
[~2019-09-26] MED LIST changes: +CYCL10TA2 PO; +MELA3TAB43 PO
--- NOTE | 2019-09-26 09:37 | PAIN ---
DATE OF SERVICE: 09/26/2019 PROGRESS NOTE FOR PAIN CLINIC DIAGNOSES: Lumbar degenerative disk disease, lumbar post-laminectomy syndrome and lumbar and lumbosacral spondylosis. HISTORY OF PRESENT ILLNESS: The patient is a 64-year-old male who returns for followup status post bilateral L5-S1 transforaminal injections, last seen 08/08/2019. The patient reports he did well with these initially with the low back and pain in the legs about 40% improvement overall. The patient reports he is still having some significant pain, especially on the right side, in the right low back and posterior gluteus, posterior thighs and into the right lateral thigh, posterior calf as well. The patient reports it is across the back, aching in the left and right. The patient reports it is an 8 on a scale of 10 at its worst over the past week, 6 on average, 1 at its least and is a 6 today. The patient reports it is aching, sharp, dull, shooting in the right leg, tingling, stabbing, becoming radiating, more constant, worse with walking, standing, changing positions, staying still or not moving, some helps with sitting, but does awaken him from sleep. The patient reports no new motor or sensory deficits, no new bowel or bladder incontinence. PHYSICAL EXAMINATION: VITAL SIGNS: The patient's blood pressure 160/106, pulse 80, respirations 16, temperature 97.6 degrees Fahrenheit, height is 5 feet 10 inches and weight is 236 pounds. GENERAL: The patient is awake, alert, oriented, appropriate, very pleasant demeanor. HEENT: Head shows normocephalic, atraumatic. Extraocular movements are intact and symmetrical. Oral cavity: Mucous membranes moist and pink. Dentition is intact. NECK: Shows anterior throat supple without palpable lymphadenopathy noted. Swallow reflex symmetrical. CHEST: Shows normal on inspection. Breath sounds are clear bilaterally. HEART: Shows S1, S2 clear. ABDOMEN: Obese, soft, nontender, nondistended. BACK: Shows spine grossly in the midline, slight exaggerated thoracic kyphosis. Some significant flattening of lumbar lordotic curvature with multiple well-healed surgical scars noted in the lumbar distribution. Lumbar paraspinous muscle shows symmetrical on inspection, with palpation shows some moderate tenderness diffusely bilaterally going diffusely without significant radiation. The patient has good rotational motion, but with some moderate tenderness right and left lateral rotation with significant tenderness with extension of the lumbar spine. Forward flexion, which is somewhat limited secondary to previous surgical fusion, but without significant increase in pain with forward flexion. EXTREMITIES: The patient's lower extremities show deep tendon reflexes 1+/4 in the patellar and tendo calcaneus tendons. Motor exam is approximately 4 on a scale of 5, but symmetrical with dorsiflexion, extension, quadriceps and hamstring flexion bilaterally. Peripheral pulses are 1+. No peripheral edema is noted. Options were discussed with the patient. The patient's old chart was reviewed as his current medication regimen updated. Current review of systems updated today as well. We will proceed with bilateral L4-L5 and L5-S1 facet medial branch block today with fluoroscopic guidance. Risks were again discussed including, but not limited to bleeding, infection, possibility of epidural hematoma, subsequent neurologic compromise, dural puncture, headaches, spinal cord and/or nerve damage, side effects of steroid medication and poor results regarding pain control. The patient understands and wished to proceed. The patient will return to clinic in approximately 2 weeks for followup. He was counseled on return appointment, activity level and side effects to be aware of. The patient will restart his Plavix tomorrow 09/26 as instructed with his primary physician as well. DIAGNOSIS: Lumbar and lumbosacral spondylosis. PROCEDURE: Bilateral L4-L5 and L5-S1 facet medial branch blocks using C-arm fluoroscopic guidance under sterile prep and drape using local anesthetic. MEDICATION INJECTED: A total of 4 mL of 0.25% bupivacaine as well as 2 mL total of contrast. CONDITION AT DISCHARGE: Stable. The patient tolerated procedure well, had no complications. LIONEL TORREZ MD DR: VICENTE/kayode JOB#: [id number] / [id number]
== END ==
LOC: PNCL 08:11
PROVIDERS: ATTEND Anesthesiology
DX: M47.817 Spondylosis without myelopathy or radiculopathy, lumbosacral region (principal); M96.1 Postlaminectomy syndrome, not elsewhere classified; M51.36 Other intervertebral disc degeneration, lumbar region
CPT/HCPCS: 64493; 64494; 64495; J1030; J1040; J3490; Q9965

== ENCOUNTER → 2019-10-11 | Outpatient (CLI) | payer MEDICARE, BC ==
[~2019-10-11] MED LIST changes: -IOHEXOL 180 MG/ML 10 ML VIAL. ONE; +LIDOCAINE 1% PF 2 ML VIAL. ONE; +LIDOCAINE 2% PF 5 ML VIAL. ONE
--- NOTE | 2019-10-11 13:05 | PAIN ---
DATE OF SERVICE: 10/11/2019 PROGRESS NOTE FOR PAIN CLINIC DIAGNOSES: Lumbar degenerative disk disease and lumbar post-laminectomy syndrome and lumbar and lumbosacral spondylosis. HISTORY OF PRESENT ILLNESS: The patient is a 64-year-old male who returns for followup status post bilateral L4-L5 and L5-S1 facet joint injections x 2 with good decrease in pain by about 75 to 80%. The patient reports the pain returned, but it took about 2-3 days to decrease the pain significantly, but the pain is still decreased by about 50% even today. His last visit was 09/25. The patient reports still significant pain across the low back, more on the right than the left, but present bilaterally. The patient reports it is 7 on a scale of 10 at its worst over the past week, 4 on average, 1 at its least and is a 4 today. The patient reports no new motor or sensory deficits, no new bowel or bladder incontinence. Describes the pain as aching, sharp, shooting across the low back, tingling, burning, stabbing, becoming more constant with less radiation into the lower extremities, but still some and then in the lower extremities, mostly in the lateral aspect of the thighs bilaterally. The patient reports no new changes. The patient reports it still awakens him from sleep about every 3-4 hours and is getting worse as time goes on. Initially, he was doing much better with walking distances, doing household activities, traveling with greater ease and comfort and sleeping better at night, now it is beginning to return. PHYSICAL EXAMINATION: VITAL SIGNS: The patient's blood pressure 136/80, pulse 81, respirations are 18, temperature is 97.8 degrees Fahrenheit, height is 5 feet 10 inches, weight is 232 pounds. GENERAL: The patient is awake, alert, oriented, appropriate, very pleasant demeanor. HEENT: Head shows normocephalic, atraumatic. Extraocular movements are intact and symmetrical. Oral cavity: Mucous membranes moist and pink. Dentition is intact. NECK: Shows anterior throat supple without palpable lymphadenopathy noted. Swallow reflex symmetrical. CHEST: Shows normal on inspection. Breath sounds are clear to auscultation bilaterally. HEART: Shows S1, S2 clear. No murmurs auscultated. ABDOMEN: Soft, nontender, nondistended. No palpable organomegaly is noted. No rebound or guarding demonstrated. BACK: Shows spine grossly in the midline. Normal appearing thoracic kyphosis and some significant flattening of lumbar lordotic curvature with extensive surgical scarring again noted in the midline and the right and left of midline. The patient's lumbar paraspinous muscle shows roughly symmetrical with inspection, on palpation shows some moderate tenderness throughout the upper, middle and lower distribution of paraspinous muscles bilaterally without radiation. The patient's sacrum shows no significant tenderness with direct palpation over the posterior superior iliac spines or sacroiliac regions. The patient's limited rotational motion secondary to previous lumbar fusion in the low back, but without significant increase in pain except for extension again limited secondary to previous fusion with moderate pain with this maneuver. Right and left lateral rotation past 10 degrees shows mild tenderness bilaterally. Mild tenderness as well with forward flexion at about 40 degrees. EXTREMITIES: The patient's lower extremities show deep tendon reflexes at 1+ in the patellar and tendo calcaneus tendons. Motor exam is approximately 4 on a scale of 5, but equal and symmetrical dorsiflexion, extension, quadriceps and hamstring flexion. Peripheral pulses are 1+ posterior tibia. No peripheral edema is noted bilaterally. Options were discussed with the patient. The patient's old chart was reviewed as his current medication regimen updated. Current review of systems updated today as well. We will proceed with radiofrequency ablation, bilateral L4-L5 and L5-S1 median branches with fluoroscopic guidance. Risks were again discussed including, but not limited to bleeding, infection, possibility of epidural hematoma, subsequent neurological compromise, dural puncture, headaches, spinal cord and/or nerve damage, side effects of steroid medication, potential thermal damage of the motor nerves and no surrounding structures may cause permanent damage as well as poor results regarding pain control. The patient understands and wished to proceed. The patient will return to clinic in approximately 3 weeks for followup. He was counseled on return appointment, activity level and side effects to be aware of. DIAGNOSIS: Bilateral lumbar and lumbosacral spondylosis. PROCEDURE: Bilateral radiofrequency ablation, L4-L5 and L5-S1 medial branches using C-arm fluoroscopic guidance under sterile prep and drape using local anesthetic. MEDICATION INJECTED: Total of 120 mg Depo-Medrol plus 6 mL total of 0.25% bupivacaine with 1 mL at each lesion level after radiofrequency ablation, also total of 6 mL of 2% lidocaine prior to radiofrequency ablation and after motor, sensory testing, 1 mL at each level, again after motor testing was negative aspiration at each site. CONDITION AT DISCHARGE: Stable. The patient tolerated procedure well, had no immediate complications and was discharged under his own power. LIONEL TORREZ MD DR: VICENTE/kayode JOB#: [id number] / [id number]
== END | disposition home or self-care (01) ==
LOC: PNCL 10:21
PROVIDERS: ATTEND Anesthesiology
DX: M51.36 Other intervertebral disc degeneration, lumbar region (principal); M47.816 Spondylosis without myelopathy or radiculopathy, lumbar region
CPT/HCPCS: 64635; 64636; J1030; J1040; J3490

== ENCOUNTER → 2019-11-08 | Outpatient (CLI) | payer MEDICARE, BC ==
[~2019-11-08] MED LIST changes: -BUPIVACAINE MPF 0.25% 10 ML VIAL. ONE; -LIDOCAINE 1% PF 2 ML VIAL. ONE; -LIDOCAINE 2% PF 5 ML VIAL. ONE; -methylPREDNISolone ACETATE 40 MG/ML VIAL. ONE; -methylPREDNISolone ACETATE 80 MG/ML VIAL. ONE
--- NOTE | 2019-11-08 11:28 | PAIN ---
DATE OF SERVICE: 11/08/2019 PROGRESS NOTE FOR PAIN CLINIC DIAGNOSES: 1. Lumbar radiculopathy with lumbar degenerative disk disease and lumbar post-laminectomy syndrome. 2. Lumbar spondylosis with lumbar and sacral spondylosis. HISTORY OF PRESENT ILLNESS: The patient is a 64-year-old male who returns for followup status post radiofrequency ablation to bilateral L4-L5 and L5-S1 medial branches on 10/11/2019. The patient reports he did very well for the first 3 weeks. The pain is returning now to a moderate extent only on the right side; however, the left side, doing much better and is in his right leg now more noticeably than in the back. The patient reports it is an 8 on a scale of 10 radiating to posterior gluteus, posterior thigh, posterior calf, 7 on average, 2 at its least and is a 7 today. The patient reports it is aching, dull, shooting, stabbing, cramping, tingling, radiating, becoming constant. For the first 3 weeks, he was doing much better with about 80% improvement, sleeping much better, increased his household activities, traveling with greater ease, but now is beginning to awaken him from sleep again about every 7-8 hours. The patient reports no new motor or sensory deficits, no new bowel or bladder incontinence. Reports he has been using alcohol to supplement for pain control as well. PHYSICAL EXAMINATION: VITAL SIGNS: The patient's blood pressure is 139/86, pulse 76, respirations 20, temperature 98.3 degrees Fahrenheit. Height is 5 feet 10 inches. Weight is 242 pounds. GENERAL: The patient is awake, alert, oriented, appropriate, very pleasant demeanor. HEENT: Shows normocephalic, atraumatic. Extraocular movements are intact and symmetrical. Oral cavity shows mucous membranes moist and pink. Dentition is intact. NECK: Shows anterior throat supple without palpable lymphadenopathy noted. Swallow reflex symmetrical. CHEST: Shows normal on inspection. Breath sounds clear to auscultation bilaterally. No rales, rhonchi or wheezes auscultated. HEART: Shows S1 and S2 clear. No murmurs auscultated. ABDOMEN: Soft, obese, nontender, nondistended. BACK: Shows spine grossly in the midline. Normal appearing thoracic kyphosis, some flattening of the lumbar lordotic curvature with well-healed surgical scarring noted in the lumbar distribution. Lumbar paraspinous muscle shows symmetrical on inspection, with palpation shows some very mild tenderness diffusely in the upper, middle and lower distributions of the paraspinous muscles bilaterally, but only diffusely without significant radiation. The patient does show good rotational motion of the lumbar spine, both laterally as well as extension and flexion without significant difficulty and better mobility posteriorly with axial loading noted especially. EXTREMITIES: The patient's lower extremities showed deep tendon reflexes 1+ in the patellar and tendo calcaneus tendons. Motor exam is approximately 4 on a scale of 5, but equal and symmetrical bilaterally with dorsiflexion and extension, quadriceps and hamstring flexion. Peripheral pulses are 1+ to posterior tibia. No peripheral edema is noted bilaterally. Options were discussed with the patient. The patient's old chart was reviewed as his current medication regimen updated. Current review of systems updated today as well and we will proceed with having the patient hold his Plavix for 7 days as he has been cleared to do this in the past and we do discuss a caudal approach epidural steroid injection on his next visit. We also discussed spinal cord stimulator. The patient was given information with this in the past. He has had a chance to review this and is interested, but he would like to try other modalities first. We will continue with this discussion later. In the meantime, the patient will maintain stretching and strength exercises. I also cautioned him about decreasing his alcohol use for pain control. The patient acknowledges this as well. We will follow up as scheduled. LIONEL TORREZ MD DR: VICENTE/kayode JOB#: [id number] / [id number]
== END | disposition home or self-care (01) ==
LOC: PNCL 10:41
PROVIDERS: ATTEND Anesthesiology
DX: M51.16 Intervertebral disc disorders with radiculopathy, lumbar region (principal); M96.1 Postlaminectomy syndrome, not elsewhere classified; M47.817 Spondylosis without myelopathy or radiculopathy, lumbosacral region; E66.9 Obesity, unspecified
CPT/HCPCS: G0463

== ENCOUNTER → 2019-11-19 | Outpatient (CLI) | payer MEDICARE, BC ==
[~2019-11-19] MED LIST changes: +IOHEXOL 180 MG/ML 10 ML VIAL. ONE; +methylPREDNISolone ACETATE 40 MG/ML VIAL. ONE; +methylPREDNISolone ACETATE 80 MG/ML VIAL. ONE
--- NOTE | 2019-11-19 13:26 | PAIN ---
DATE OF SERVICE: 11/19/2019 PROGRESS NOTE FOR PAIN CLINIC DIAGNOSES: Lumbar radiculopathy with lumbar degenerative disk disease and lumbar post-laminectomy syndrome. HISTORY OF PRESENT ILLNESS: The patient is a 64-year-old male who returns for followup status post lumbar facet joint injections as well as radiofrequency ablation, transforaminal injections and we discussed a caudal approach epidural steroid injection as the patient gets good relief with each of these. He has a very limited 3 weeks or so with his right leg becoming much more painful. The patient reports his pain is 8 on a scale of 10 at its worst over the past week, 6 on average, 1 at its least and is a 6 today. The patient reports it is tingling, burning, cramping, aching, sharp, dull, tight, shooting across the back, radiating to the right lower extremity, posterior gluteus, posterior thigh, posterior calf and foot, worse after about 2-3 hours when he gets up in the morning. He has to sit and rest from about 7:00 to 10:000. He has to sit down and rest after 10:00 because the leg is becoming significantly fatigued and painful. The patient reports it awakens him from sleep, not every night and usually only once or twice a night, but is much better with sitting or lying down than with walking, standing or weightbearing. The patient reports no new motor or sensory deficits, no new bowel or bladder incontinence. PHYSICAL EXAMINATION: VITAL SIGNS: The patient's blood pressure is 142/88, pulse 75, respirations 20, temperature 98.9 degrees Fahrenheit, height is 5 feet 10 inches, weight is 244 pounds. GENERAL: The patient is awake, alert, oriented, appropriate, very pleasant demeanor. HEENT: Shows normocephalic, atraumatic. Extraocular movements are intact and symmetrical. Oral cavity: Mucous membranes moist and pink. Dentition is intact. NECK: Shows anterior throat supple without palpable lymphadenopathy noted. Swallow reflex symmetrical. CHEST: Shows normal on inspection. Breath sounds are clear bilaterally. HEART: Shows S1, S2 clear. No murmurs auscultated. ABDOMEN: Soft, nontender, nondistended. No palpable organomegaly is noted. No rebound or guarding demonstrated. BACK: Shows spine grossly in the midline. Normal appearing thoracic kyphosis and minor flattening of lumbar lordotic curvature with well-healed surgical scarring which is extensive. Lumbar paraspinous muscle shows roughly symmetrical on inspection, with palpation shows some moderate tenderness diffusely bilaterally going diffusely without significant radiation. The patient does show good rotational motion of lumbar spine, both laterally with some limitation in extension secondary to limitation of motion not secondary to pain. EXTREMITIES: The patient's lower extremities show deep tendon reflexes at 1+/4 in the patellar and tendo-calcaneus tendons. Motor exam is strong with 4/5 and equal with dorsiflexion, extension, quadriceps and hamstring flexion and symmetrical. Peripheral pulses are 1+. No peripheral edema is noted. Options were discussed with the patient. The patient's old chart was reviewed as his current medication regimen updated. Current review of systems updated today as well. We will proceed with a caudal approach epidural steroid injection today with fluoroscopic guidance. Risks were again discussed including, but not limited to bleeding, infection, possibility of epidural hematoma, subsequent neurological compromise, dural puncture, headaches, spinal cord and/or nerve damage, side effects of steroid medication and poor results regarding pain control. The patient understands and wished to proceed. The patient will return to clinic in approximately 2 weeks for followup. He was counseled on return appointment, activity level and side effects to be aware of. DIAGNOSIS: Lumbar radiculopathy with lumbar degenerative disk disease and lumbar post-laminectomy syndrome. PROCEDURE: Lumbar epidural steroid injection, caudal approach using C-arm fluoroscopic guidance under sterile prep and drape using local anesthetic. MEDICATION INJECTED: A total of 120 mg Depo-Medrol plus 10 mL preservative-free normal saline and 2 mL of contrast. CONDITION AT DISCHARGE: Stable. The patient tolerated the procedure well, had no complications. LIONEL TORREZ MD DR: VICENTE/kayode JOB#: [id number] / [id number]
== END ==
LOC: PNCL 12:07
PROVIDERS: ATTEND Anesthesiology
DX: M51.16 Intervertebral disc disorders with radiculopathy, lumbar region (principal); M96.1 Postlaminectomy syndrome, not elsewhere classified
CPT/HCPCS: 62323; J1030; J1040; Q9965

== ENCOUNTER → 2020-03-07 | Outpatient (CLI) | payer MEDICARE, BC ==
[~2020-03-07] MED LIST changes: +OLME1TAB33 PO; -WARF-78 PO; +WARF5TAB2 PO
--- NOTE | 2020-03-07 11:12 | PDOC ---
Progress Note - Pain Clinic Date of Service: DOS: DATE: 03/07/20 TIME: 10:44 Diagnosis: Dx: Lumbar radiculopathy with lumbar degenerative disc disease lumbar postlaminectomy syndrome History or Present Illness: HPI: 64-year-old male returns follow-up status post caudal epidural steroid injection x1 November 19, 2019. Patient reports he did very well with about 70% improvement for almost 3 months. Reports pain is returning in the low back and bilateral lower extremities slightly more on the right than the left with pain rating the posterior gluteus posterior thigh posterior calf into the ankle worse with walking standing changing positions. Patient rates his pain as a 9 on scale 10 is worse over the past week 7 on average 3 at its least is a 7 today. Patient ports pain is aching sharp shooting tingling and burning to some extent as well stabbing radiating and constant in the right leg with activity. Patient continues to use his cane which he is using in his right hand. Reports no new motor or sensory deficits no new bowel or bladder incontinence or other complaints. We had discussed a spinal cord stimulator with the patient on his last visit gave him some information to review as well and he would like to move forward with this. Physical Exam: VS: Blood pressure is 152/88 pulse 76 respirations 18 temperature is 98.3 F weight is 241 pounds PE: PHYSICAL EXAMINATION: GENERAL: The patient is awake, alert, oriented, appropriate, very pleasant demeanor HEENT: Shows normocephalic, atraumatic. Extraocular movements are intact and symmetrical. Oral cavity: Mucous membranes moist and pink. NECK: Shows anterior throat supple without palpable lymphadenopathy noted. Swallow reflex symmetrical. CHEST: Shows normal on inspection. Breath sounds are clear bilaterally. HEART: Shows S1, S2 clear. No murmurs auscultated. ABDOMEN: Soft, nontender, nondistended. No palpable organomegaly is noted. No rebound or guarding demonstrated. BACK: Shows spine grossly in the midline. Normal-appearing cervical lordotic curvature. There is slightly increased thoracic kyphosis, some minor flattening of the lumbar lordotic curvature. Lumbar paraspinous muscles show symmetrical on inspection with well-healed surgical scarring again noted, on palpation shows some moderate tenderness diffusely throughout the upper, middle and lower distribution of the paraspinous muscles bilaterally and also into the lower thoracic paraspinous musculature, firm and tender, but without specific trigger points, without radiation of pain. The patient has good rotational motion of the lumbar spine, both laterally as well as extension and flexion without significant difficulty. No tenderness over the spinous processes, sacrum or sacroiliac regions. EXTREMITIES: Lower extremities show deep tendon reflexes 1+ in the patellar and tendo calcaneus tendons. Motor exam is 4 on a scale of 5 with right d orsiflexion, extension, quadriceps and hamstring flexion and 4/5 on the left. Peripheral pulses are 1+ posterior tibial. No peripheral edema is noted bilaterally. Lower extremities are warm and dry to touch, equal in color and appearance. SKIN: Shows warm and dry, good turgor. No edema. No sores, rashes or bruising throughout. Procedure: Procedure: Options discussed with the patient. Patient's old chart was reviewed his his current medication regimen updated current review of systems updated today as well. We will proceed with a second caudal approach epidural steroid injection today with fluoroscopic guidance. Risks are again discussed including but not limited to bleeding infection possibility of epidural hematoma subsequent neurological compromise dural puncture headache spinal cord and or nerve damage side effects steroid medication and portals chronic pain control. Patient understands wished to proceed. Patient return to clinic in proxy 2 weeks for follow-up was counseled as to return appointment activity level and side effects to be aware. Medication Injected: Med Injected: Procedure is lumbar epidural steroid injection under local anesthetic using sterile prep and drape at the caudal level using C-arm fluoroscopic guidance in both AP and lateral views medications injected is 120 mg Depo-Medrol + 10 mL pr eservative-free normal saline and 2 mL contrast- condition at discharge is stable patient tolerated procedure well had no complications. Condition at Discharge: Condition at Discharge: Condition at discharge is stable patient tolerated the procedure well had no complications. LIONEL TORREZ MD Mar 07, 2020 11:12
== END | disposition home or self-care (01) ==
LOC: PNCL 09:55
PROVIDERS: ATTEND Anesthesiology
DX: M51.16 Intervertebral disc disorders with radiculopathy, lumbar region (principal); M96.1 Postlaminectomy syndrome, not elsewhere classified; Z88.8 Allergy status to other drugs, medicaments and biological substances; Z79.82 Long term (current) use of aspirin; Z79.899 Other long term (current) drug therapy
CPT/HCPCS: 62323; J1030; J1040; Q9965

== ENCOUNTER → 2020-04-29 | Outpatient (CLI) | payer MEDICARE, BC ==
[~2020-04-29] MED LIST changes: +AMLO-186 PO; -AMLO5TAB10 PO; -IOHEXOL 180 MG/ML 10 ML VIAL. ONE; +LIDOCAINE 1% PF 2 ML VIAL. ONE; -methylPREDNISolone ACETATE 40 MG/ML VIAL. ONE; -methylPREDNISolone ACETATE 80 MG/ML VIAL. ONE
--- NOTE | 2020-04-29 14:20 | PDOC ---
Progress Note - Pain Clinic Date of Service: DOS: DATE: 04/29/20 TIME: 14:14 Diagnosis: Dx: Lumbar radiculopathy with lumbar degenerative disc disease lumbar postlaminectomy syndrome History or Present Illness: HPI: 64-year-old male returns for follow-up status post caudal epidural steroid injections for spinal cord stimulator temporary lead trial. Patient reports still significant pain in the low back primarily in the right lower extremity but in the bilateral lower extremities worse on the right radiating pain across the low back and the posterior gluteus posterior thigh posterior calf and lateral thigh and calf as well on the right side patient ports aching sharp shooting stabbing tingling radiating becoming more constant with activity standing walking changing positions. Patient did fairly well with his injections of the epidurals but very limited decrease time in reduction of pain. Patient reports after about 3 to 4 weeks the pain returned fairly significantly. Patient rates his pain now over the past week is a 7 on scale 10 is worse 6 on average 6 at its least and is a 6 today. Patient reports no new motor or sensory deficits no new bowel or bladder incontinence or other complaints. She has had psychiatric evaluation which would have been a "good" category for spinal cord stimulator placement. Physical Exam: VS: Blood pressure is 167/97 pulse 84 respirations 18 temperature 98.2 F height is 5 feet 10 inches weight is 236 pounds PE: PHYSICAL EXAMINATION: GENERAL: The patient is awake, alert, oriented, appropriate, very pleasant demeanor HEENT: Shows normocephalic, atraumatic. Extraocular movements are intact and symmetrical. Oral cavity: Mucous membranes moist and pink. NECK: Shows anterior throat supple without palpable lymphadenopathy noted. Swallow reflex symmetrical. CHEST: Shows normal on inspection. Breath sounds are clear bilaterally no rales rhonchi or wheezes. HEART: Shows S1, S2 clear. No murmurs auscultated. ABDOMEN: Soft, nontender, nondistended, obese. No palpable organomegaly is noted. No rebound or guarding demonstrated. BACK: Shows spine grossly in the midline. Normal-appearing cervical lordotic curvature. There is slightly increased thoracic kyphosis, some minor flattening of the lumbar lordotic curvature. Well-healed surgical scarring is noted in the midline x3. Lumbar paraspinous muscles show symmetrical on inspection, on palpation shows some moderate tenderness diffusely throughout the upper, middle and lower distribution of the paraspinous muscles bilaterally, but without specific trigger points, without radiation of pain. The patient has good rotational motion of the lumbar spine, both laterally as well as extension and flexion without significant difficulty. No tenderness over the spinous processes, sacrum or sacroiliac regions. EXTREMITIES: Lower extremities show deep tendon reflexes 1+ in the patellar and tendo calcaneus tendons. Motor exam is 4 on a scale of 5 with right dorsiflexion, extension, quadriceps and hamstring flexion and 4/5 on the left. Peripheral pulses are 1+ posterior tibial. No peripheral edema is noted bilaterally. Lower extremities are warm and dry to touch, equal in color and appearance. SKIN: Shows warm and dry, good turgor. No edema. No sores, rashes or bruising throughout. Procedure: Procedure: Options were discussed with the patient. Patient chart was reviewed and his current medication regimen updated current review of systems updated today as well. We will proceed with spinal cord stimulator temporary lead placement with C-arm fluoroscopic guidance. Risks were discussed including but not limited to: Bleeding, infection, possibility of epidural hematoma and subsequent neurological compromise, dural puncture, headaches, spinal cord and/or nerve damage, and poor results regarding pain control. Patient understands wished to proceed. Patient will return to clinic in 1 week for follow-up and removal of temporary leads. Patient will have reevaluation of his pain level at that time. Medication Injected: Med Injected: Under sterile prep and drape patient in prone position using C-arm fluoroscopic guidance patient's lumbar spine was identified and vertebral levels were counted did put external marker on the T8 level. This time the lumbar spine was revisualized and using 1% lidocaine, the area over the ill 3 4 level was anesthetized and then using a 14-gauge Simphatic needle with stylette was entered to the epidural space at the T-12-L1 level using a paramedian approach to the right with preservative-free normal saline [id number] technique aspiration was noted to be negative and using direct fluoroscopy visualization spinal cord stimulator lead was then advanced without significant resistance in the midline and confirmed posterior with both AP and lateral views, and advanced to the superior endplate of the T8 vertebral level superimposed with the superior spinal cord stimulator electrode lead. Fluoroscopy was used in a lateral view to verify posterior placement in the epidural space at this point as well. At this time a second lead was then introduced in similar fashion at the T12-L1 level and inserted and in the epidural space at the same level once again with preservative-free normal saline [id number] technique. Aspiration was again noted to be negative and using direct visualization with fluoroscopy second lumbar spinal cord stimulator lead was advanced without significant resistance in the midline with the superior electrode superimposed over the superior endplate of the T9 vertebral body. Lateral visualization was again confirmed with placement of the stimulator in the posterior epidural space. At this time the needles and stylette were removed with intermittent fluoroscopic visualization maintaining that the leads had not moved during this process and this was confirmed. This time 1% lidocaine was used to anesthetize the skin next to the insertion sites of the stimulator wires and using a 2-0 silk were then sutured in place. Mastisol and Tegaderm was then applied as well as reinforcing tape and gauze. Patient was transferred to the recovery area under his own power walking without difficulty and had no immediate complications from the procedure. Stimulation was then carried out with [employer]. Patient will return to the clinic in approximately 1 week for removal of the temporary leads and reassessment of the patient's pain level. Condition at Discharge: Condition at Discharge: Patient spinal cord stimulator was programmed in recovery by [employer] sales representative. condition at discharge is stable, patient tolerated procedure well and had no immediate complications. LIONEL TORREZ MD Apr 29, 2020 14:20
== END ==
LOC: PNCL 12:54
PROVIDERS: ATTEND Anesthesiology
DX: M51.16 Intervertebral disc disorders with radiculopathy, lumbar region (principal); M46.1 Sacroiliitis, not elsewhere classified; I13.0 Hypertensive heart and chronic kidney disease with heart failure and stage 1 through stage 4 chronic kidney disease, or unspecified chronic kidney disease; I50.9 Heart failure, unspecified; N18.9 Chronic kidney disease, unspecified; E78.5 Hyperlipidemia, unspecified; Z88.8 Allergy status to other drugs, medicaments and biological substances; Z79.82 Long term (current) use of aspirin; Z79.899 Other long term (current) drug therapy
CPT/HCPCS: 63650; C1897; J3490

== ENCOUNTER → 2020-05-06 | Outpatient (CLI) | payer MEDICARE, BC ==
[~2020-05-06] MED LIST changes: -LIDOCAINE 1% PF 2 ML VIAL. ONE
--- NOTE | 2020-05-06 13:45 | PDOC ---
Progress Note - Pain Clinic Date of Service: DOS: DATE: 05/06/20 TIME: 13:40 Diagnosis: Dx: Lumbar radiculopathy with lumbar degenerative disc disease and lumbar postlaminectomy syndrome History or Present Illness: HPI: 64-year-old male returns follow-up status post spinal cord stimulator temporary leads placement times two 1 week ago. Fortunately very well last week with about 75% improvement in his pain level in the low back and bilateral lower extremities. Patient reports his worst pain over the week was a 5 on a scale of 10 3 on average and I wonder if this is a 1 today. Reports has been sleeping better at night spent walking greater distances doing activities greater ease and comfort doing some significant physical activity as well over the past few days with good tolerance and only some muscle soreness but not his usual pain in the back and lower extremities. Patient cries the pain he does have is dull and shooting at times tingling and radiating but very well controlled with the stimulator trial. Patient reports no new motor or sensory deficits no new bowel or bladder incontinence or other complaints. Physical Exam: VS: Blood pressure is 155/95 pulse 72 respirations are 16 height is 5 feet 10 inches weight is 235 pounds PE: PHYSICAL EXAMINATION: GENERAL: The patient is awake, alert, oriented, appropriate, very pleasant demeanor HEENT: Shows normocephalic, atraumatic. Extraocular movements are intact and symmetrical. NECK: Shows anterior throat supple without palpable lymphadenopathy noted. Swallow reflex symmetrical. CHEST: Shows normal on inspection. Breath sounds are clear bilaterally. ABDOMEN: Soft, nontender, nondistended, obese. No palpable organomegaly is noted. No rebound or guarding demonstrated. BACK: Shows spine grossly in the midline. Normal-appearing cervical lordotic curvature. There is increased thoracic kyphosis, some minor flattening of the lumbar lordotic curvature. Patient has well-healed extensive surgical scarring in the lumbar distribution. Lumbar paraspinous muscles show symmetrical on inspection, on palpation shows some moderate tenderness diffusely throughout the upper, middle and lower distribution of the paraspinous muscles bilaterally without specific trigger points, without radiation of pain. The patient has good rotational motion of the lumbar spine, both laterally as well as extension and flexion without significant difficulty. No tenderness over the spinous processes, sacrum or sacroiliac regions. EXTREMITIES: Lower extremities show deep tendon reflexes 1+ in the patellar and tendo calcaneus tendons. Motor exam is 4 on a scale of 5 with right dorsiflexion, extension, quadriceps and hamstring flexion and 4/5 on the left. Peripheral pulses are 1+ posterior tibial. No peripheral edema is noted bilaterally. Lower extremities are warm and dry to touch, equal in color and appearance. SKIN: Shows warm and dry, good turgor. No edema. No sores, rashes or bruising throughout. Procedure: Procedure: Options were discussed with the patient. Patient's old chart was reviewed as her current medication regimen updated current review of systems updated today as well. patient's spinal cord stimulator leads were removed under sterile prep and drape with sutures cut and stimulator leads removed x2 with tips intact. Site is clean and dry no erythema no tenderness no drainage. Sterile bandage was applied. Patient would like to pursue permanent stimulator system implant and we will make these arrangements. Medication Injected: Med Injected: None Condition at Discharge: Condition at Discharge: Condition at discharge is stable. LIONEL TORREZ MD May 06, 2020 13:45
== END ==
LOC: PNCL 12:50
PROVIDERS: ATTEND Anesthesiology
DX: M51.16 Intervertebral disc disorders with radiculopathy, lumbar region (principal); M96.1 Postlaminectomy syndrome, not elsewhere classified; I13.0 Hypertensive heart and chronic kidney disease with heart failure and stage 1 through stage 4 chronic kidney disease, or unspecified chronic kidney disease; N18.9 Chronic kidney disease, unspecified; I50.9 Heart failure, unspecified; E78.5 Hyperlipidemia, unspecified; Z98.2 Presence of cerebrospinal fluid drainage device; Z88.8 Allergy status to other drugs, medicaments and biological substances; Z79.899 Other long term (current) drug therapy; Z79.82 Long term (current) use of aspirin
CPT/HCPCS: G0463